=== PATIENT | female | born 1985 | race Caucasian/White ===

== ENCOUNTER → 2017-10-17 16:00 | Outpatient (CLI) | payer OTHER, SELFPAY ==
--- NOTE | 2017-10-17 | IMM_PTH ---
PATIENT: ALLEN CORREA LOC: [facility] U#:[id number] AGE/SX: 40/F ROOM: RE10/17/[address]: Dr. Nani Carvajal MD : 1985 BED: DIS: SPEC #: [id number] RECD: 10/19/17 11:32 STATUS: KATIE DANNA #: [id number] BHASKAR: 10/17/17 00:[address]: Nani Lane DEPT: IMMUNOHISTOCHEMISTRY RECD BY: Jaclyn Neville Tissues: A - Uterine cervix, NOS Procedures: p16 (initial) KI-67 (add) PHYSICIAN & INSTITUTION [facility] [id number] SPECIMEN INFORMATION: Tissue Source: A ? Cervical biopsy 12 o?clock Clinical Info: Pap HR HPV 04/2017 Specimen Number: [id number] CPT code: 87591, 15429 METHODOLOGY: Deparaffinized sections of prefer/formalin-fixed tissue or PAP/DQ stained slides are incubated with monoclonal/polyclonal antibodies/oligonucleotide probes. Localization is made via biotin free immunoperoxidase method. Appropriate controls are performed and reacted as expected. Results on target cell population are indicated in the following table: RESULTS: ANTIBODY / CLONE RESULT Block A P16 (E6H4) negative Ki-67 (30-9) positive, low These tests were developed and their performance characteristics determined by [facility]. They may not have been cleared or approved by the [place] Food and Drug Administration. The FDA has determined that such clearance or approval is not necessary. INTERPRETATION: A. Cervix at 12 o?clock, biopsy: Focal changes suspicious for HPV change. AM:alexandra 10/19/17
--- NOTE | 2017-10-17 14:30 | CER_PTH ---
PATIENT: ALLEN CORREA LOC: [facility] U#:[id number] AGE/SX: 40/F ROOM: RE10/17/[address]: Dr. Nani Carvajal MD : 1985 BED: DIS: SPEC #: [id number] RECD: 10/17/17 15:44 STATUS: KATIE DANNA #: [id number] BHASKAR: 10/17/17 14:[address]: Nani Lane DEPT: SURGICAL PATHOLOGY RECD BY: Orlin Quan Tissues: A - Uterine cervix, NOS B - Endocervical Procedures: Surgery Specimen Level IV HEADER OPERATION: Colposcopy PRE-OP DIAGNOSIS: Pap HR HPV; pap 04/2017; LMP 10/01/17 TISSUE SUBMITTED: A ? Cervical biopsy 12 o?clock, B - ECC MICROSCOPIC DIAGNOSIS A. Cervix at 12 o?clock, biopsy: Strips of benign squamous mucosa with focal changes suspicious for HPV cytopathic change. Mild chronic inflammation. B. Endocervix, curettings: Endocervix with focal squamous metaplasia. No evidence of dysplasia. AM:alexandra 10/19/17 COMMENT A. Results from immunohistochemistry ([id number]) for surrogate HPV marker (p16) will be reported separately. MICROSCOPIC DESCRIPTION Slides are reviewed. GROSS DESCRIPTION A - Received in fixative is one container labeled with the patient's name and designated cervical biopsy 12 o'clock. The specimen consists of multiple irregular fragments of light cordon soft tissue that in aggregate measure 0.6 x 0.2 x 0.2 cm. The specimen is totally submitted in one cassette. B - Received in fixative is one container labeled with the patient's name and designated ECC. The specimen consists of multiple minute fragments of cordon-brown soft tissue that in aggregate measure 1 x 0.5 x <0.1 cm. The specimen is totally submitted in one cassette. / RY:alexandra 10/18/17 TC:3 CPT: 99627 x2
== END ==
PROVIDERS: Visit Provider Obstetrics & Gynecology
DX: N72 Inflammatory disease of cervix uteri (principal); N87.9 Dysplasia of cervix uteri, unspecified
CPT/HCPCS: 88305; 88341; 88342

== ENCOUNTER → 2018-07-28 16:36 | Outpatient (CLI) | payer MEDICAID, SELFPAY ==
[2018-08-03 16:09] LABS: HPV Genotype 16, Aptima Negative (Negative)
[2018-08-04 11:55] LABS: HPV APTIMA, High Risk Positive (Negative); HPV Genotype 18,45 Aptima Negative (Negative)
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
== END ==
PROVIDERS: Visit Provider Obstetrics & Gynecology
DX: R87.810 Cervical high risk human papillomavirus (HPV) DNA test positive (principal)
CPT/HCPCS: 87624; 88175; G0145

== ENCOUNTER → 2018-11-20 09:22 | Outpatient (CLI) | payer OTHER, MEDICAID, SELFPAY | PROVIDERS: Visit Provider Obstetrics & Gynecology | DX: R87.810 Cervical high risk human papillomavirus (HPV) DNA test positive (principal) | CPT/HCPCS: 87624; 88175; G0145 ==

== ENCOUNTER 2019-02-28 17:51 | Emergency (ER) | payer MEDICAID, SELFPAY ==
[2019-02-28 17:51] VITALS: BP 119/81; PULSE 85; RESP 16; TEMP 36.6; O2SAT 97; BMI 21.4
--- NOTE | 2019-02-28 18:41 | ED.DCSUM_ITS ---
- ER Visit Summary Date of Service: 02/28/19 Chief Complaint: [Laceration right thumb] History of Present Illness: The patient is a 33 F [the emergency department after lacerating her right thumb while using a pocket knife. Patient is right- hand dominant. She is unsure of her last tetanus.] Physical Examination: [Right thumb-patient is a 2.5 cm flap-like laceration over lateral aspect of the thumb just lateral to the nail. Patient has normal range of motion of the IP joint. Patient has normal strength. She is neuro vastly intact.] Test Results: [None indicated] Emergency Department Course and Treatment: [Laceration repair-wound sterilely draped and prepped. Wound cleansed with Shur-Clens and irrigated with copious saline after she was initially anesthetized using 1% lidocaine total of 8 cc to perform digital block. Using 5-0 nylon a total of 5 single repeat sutures placed with good wound edge approximation. Patient tolerated procedure well.] Treatment Plan: [She will have suture removal in 10 days. Patient advised to return if increasing pain, redness, swelling, purulent drainage, or conditions worsen anyway.] Disposition: [Home stable condition.] Impression: [Laceration right thumb-simple repair-2.5 cm] This note was generated with [employer] dictation software. It may contain incorrect words, spelling, and punctuation that were not noted in review of the chart prior to signing ED Disposition - Plan for ED Patient: Referrals: [facility] ,Out of [Primary Care Provider] -
--- NOTE | 2019-02-28 18:42 | DCINST.ED_ITS ---
ED Disposition - Plan for ED Patient: Instructions: LACERATION, Hand Referrals: [facility] Doctor,Out of [Primary Care Provider] - 10 Day for suture removal
[2019-02-28] MEDS: Diphth,Pertuss(Acell),Tet Vac 0.5 ML Vial IM (18:49)
[2019-02-28 19:17] VITALS: BP 118/60; PULSE 78; RESP 18; O2SAT 98
== END 2019-02-28 19:17 | disposition home or self-care (01) ==
LOC: ED 18:17
PROVIDERS: Emergency Provider Emergency Medicine
DX: S61.011A Laceration without foreign body of right thumb without damage to nail, initial encounter (principal); W26.0XXA Contact with knife, initial encounter; Y93.9 Activity, unspecified; Y92.9 Unspecified place or not applicable; F41.9 Anxiety disorder, unspecified; Z79.899 Other long term (current) drug therapy
CPT/HCPCS: 12001; 90471; 90715; 99282

== ENCOUNTER → 2020-06-18 | Outpatient (CLI) | payer MEDICAID, SELFPAY ==
[2020-06-25 15:08] LABS: HPV APTIMA, High Risk Positive (Negative)
== END | disposition home or self-care (01) ==
LOC: LABSPEC 14:11
PROVIDERS: Visit Provider Obstetrics & Gynecology
DX: Z12.4 Encounter for screening for malignant neoplasm of cervix (principal)
CPT/HCPCS: 87624; 88175; G0145

== ENCOUNTER → 2020-06-19 14:40 | Outpatient (CLI) | payer MEDICAID, SELFPAY ==
[2020-06-19 18:06] LABS: Absolute Lymphocyte Count 2.47 X10^3/uL (0.83-4.51); Absolute Neutrophil Count 5.3 X10^3/uL (2.0-7.7); Basophil# 0.07 X10^3/uL; Basophil% 0.8 % (0-1); Eosinophil# 0.45 X10^3/uL; Eosinophils% 4.9 % (0-5); Hematocrit 43.2 % (37-47); Hemoglobin 13.8 g/dL (12.0-15.0); Lymphocyte # 2.47 X10^3/ul (4.0); Mean Corp Hgb Conc 31.9 g/dL (32-36); Mean Corpuscular Hgb 30.9 pg (27.0-32.0); Mean Corpuscular Volume 96.6 fL (81-99); Mean Platelet Vol. 11.3 fl (6.2-12.0); Monocyte# 0.82 X10^3/uL; NRBC Flagged by Analyzer 0 % (0-5); Neutrophil # 5.32 X10^3/uL (2.7-7.7); Neutrophil % 58.1 % (47-70); Platelet Count 276 K/mm3 (150-450); RBC Distribution Width CV 11.7 % (11.6-14.6); RBC Distribution Width SD 41.3 fl (35.1-43.9); Red Blood Count 4.47 M/mm3 (4.2-5.4); White Blood Count 9.2 K/mm3 (4.4-11.0)
[2020-06-19 18:25] LABS: AST(SGOT) 21 U/L (15-37); Alanine Aminotransfer ALT/SGPT 25 U/L (13-56); Albumin, Serum 3.7 g/dL (3.2-5.0); Alkaline Phosphatase 87 U/L (45-117); Anion Gap 5 (5-15); BUN 13 mg/dL (7-18); BUN/Creat Ratio 14.5 RATIO (10-20); Calcium,Total 8.5 mg/dL (8.5-10.1); Chloride 107 mmol/L (98-107); Creatinine, Serum 0.89 mg/dL (0.55-1.02); EST Glomerular Filtration Rate 77 mL/min (>60); Est Glom Filt Rate - Afr Amer 93 mL/min (>60); Globulin 3.7 g/dL (2.2-4.2); Glucose 66 mg/dL (74-106); Potassium 3.9 mmol/L (3.5-5.1); Protein, Total 7.4 g/dL (6.4-8.2); Sodium Level 141 mmol/L (136-145); Thyroid Stim Hormone (TSH) 0.83 uIU/mL (0.358-3.74)
[2020-06-19 19:08] LABS: Vitamin B12 469 pg/mL (211-911); Vitamin D,25 Hydroxy 23.1 ng/mL
== END ==
PROVIDERS: PCP Family Medicine; Referring Provider Family Medicine; Visit Provider Family Medicine
DX: R53.83 Other fatigue (principal)
CPT/HCPCS: 36415; 80053; 82306; 82607; 84443; 85025

== ENCOUNTER → 2020-07-10 14:10 | Outpatient (CLI) | payer MEDICAID, SELFPAY ==
--- NOTE | 2020-07-10 14:13 | RAD_ITS ---
STUDY: X-RAY - LUMBAR SPINE REASON FOR EXAM: Female, 35 years old. Back pain. Sacroiliac pain. TECHNIQUE: 2 view(s) of the lumbar spine were obtained. COMPARISON: None FINDINGS: Normal lumbar lordosis. There is no substantial scoliosis. There is a normal alignment of the vertebrae. Normal vertebral bodies and endplates. Normal disc space heights. There is no evidence of acute fracture or loss of vertebral axial height. The soft tissue structures are unremarkable. RAD/Lumbar Spine 2 or 3 Views IMPRESSION: Normal x-ray examination of the lumbar spine. Electronically Signed: Andrew Danielle DO at 21:12 EST Tel [phone], Service support ,
== END ==
PROVIDERS: PCP Family Medicine; Referring Provider Family Medicine; Visit Provider Family Medicine
DX: M53.3 Sacrococcygeal disorders, not elsewhere classified (principal)
CPT/HCPCS: 72100

== ENCOUNTER → 2020-07-29 | Outpatient (CLI) | payer MEDICAID, SELFPAY ==
--- NOTE | 2020-07-29 | ECC_PTH ---
PATIENT: ALLEN CORREA LOC: [facility] U#:[id number] AGE/SX: 35/F ROOM: RE07/29/[address]: Dr. Nani Carvajal MD : 1985 BED: DIS: 07/29/2020 SPEC #: [id number] RECD: 07/29/20 16:03 STATUS: KATIE DANNA #: [id number] BHASKAR: 07/29/20 00:[address]: Nani Lane DEPT: SURGICAL PATHOLOGY RECD BY: Saumya Merritt ENTERED: 07/30/20 08:30 SP TYPE: ECC OTHR DR: Dr. Daryl Frey MD Tissues: Endocervical Procedures: Surgery Specimen Level IV HEADER OPERATION: Colposcopy with biopsy PRE-OP DIAGNOSIS: ASCUS, positive HPV TISSUE SUBMITTED: Endocervical curettage MICROSCOPIC DIAGNOSIS Endocervix, curettings: Scant strips of superficial endocervix with squamous metaplasia. Rare strips of benign superficial ectocervix. AM:alexandra 07/31/20 COMMENT Results from immunohistochemistry ([id number]) for surrogate HPV marker (p16) will be reported separately. MICROSCOPIC DESCRIPTION Slides are reviewed. GROSS DESCRIPTION Received in fixative is one container labeled with the patient's name and designated endocervical curettings. The specimen consists of scant fragments of light cordon soft tissue measuring in aggregate 0.6 x 0.5 x <0.1 cm. The specimen is totally submitted in one cassette. / AM:alexandra 07/30/20 TC:3 CPT: 63655
--- NOTE | 2020-07-29 | IMM_PTH ---
PATIENT: ALLEN CORREA LOC: [facility] U#:[id number] AGE/SX: 35/F ROOM: RE07/29/[address]: Dr. Nani Carvajal MD : 1985 BED: DIS: 07/29/2020 SPEC #: [id number] RECD: 07/31/20 13:18 STATUS: KATIE REMisha #: [id number] [place]: 07/29/20 00:[address]: Nani Lane DEPT: IMMUNOHISTOCHEMISTRY RECD BY: Jaclyn Neville ENTERED: 07/31/20 13:18 SP TYPE: IMMUNO OTHR DR: Dr. Daryl Frey MD Tissues: Endocervical Procedures: p16 (initial) KI-67 (add) PHYSICIAN & [place] [id number] SPECIMEN INFORMATION: Tissue Source: Endocervical curettage Clinical Info: ASCUS, positive HPV Specimen Number: [id number] CPT code: 77680, 81848 METHODOLOGY: Deparaffinized sections of prefer/formalin-fixed tissue or PAP/DQ stained slides are incubated with monoclonal/polyclonal antibodies/oligonucleotide probes. Localization is made via biotin free immunoperoxidase method. Appropriate controls are performed and reacted as expected. Results on target cell population are indicated in the following table: RESULTS: ANTIBODY / CLONE RESULT P16 (E6H4) negative Ki-67 (30-9) negative These tests were developed and their performance characteristics determined by [facility]. They may not have been cleared or approved by the U.S. Food and Drug Administration. The FDA has determined that such clearance or approval is not necessary. The above immunohistochemical/dualISH markers are ordered and reviewed by the Pathologist. INTERPRETATION: Endocervical curettage: No evidence of dysplasia. AM:alexandra 08/01/20
== END | disposition home or self-care (01) ==
PROVIDERS: PCP Family Medicine; Visit Provider Obstetrics & Gynecology
DX: R87.610 Atypical squamous cells of undetermined significance on cytologic smear of cervix (ASC-US) (principal)
CPT/HCPCS: 88305; 88341; 88342

== ENCOUNTER 2020-08-21 08:30 | Outpatient (RCR) | payer MEDICAID, SELFPAY ==
--- NOTE | 2020-07-22 14:54 | HP.PTEVAL_ITS ---
Patient's Visit Information ALLEN CORREA is a 35 year old F referred to Physical Therapy by Dr. Daryl Frey MD with a diagnosis of Sacrooccygeal Disorder. Date of Evaluation: 07/22/20 Physical Therapist: Fredrick Mccormack, PT, Cert MDT, OCS - Visit Plan Frequency: 2x /Week Duration: 4 Weeks Plan: PT INTERVENTIONS MERE EX'S ,DLS ABD/BACK,POSTURAL EX'S AND MODALITIES - Subjective This 35 y/o female presents to physical therapy with lumbar pain. Patient has had LS pain for 2 months without predisposing factors or injury . 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 Aggraveting factors bending,lifting,siting,driving. Alleviating factors walking and standing. Patient was given MEDS predisone/mobic didnt help. Cuurently taking flexeral. Denies parathesia/tingling. Coughing/sneezing -. Bowel/bladder -.Symptoms affects sleeping. Did x-rays which are -. Patient pain affects ability with housework tasks and and to RTW. Patient symptoms QOL. - Pain Bilateral Back Pain Intensity (Out of 10): 6 Pain Intensity Range: 10 Comment: 10/10 without MEDS - Objective POSTURE: mild foward posture. GAIT: reciprocal pattern. SYMMTRIES: align. PALAPTION: tender L-S /SI RIGHT. NEURO: denies parathesia/tingle reflexes 2/3 ,L3-4,L4-5,L5-S1 2/3. LUMBAR ROM: flexion mod loss,extension min loss,side glides min loss. MMT: quads/hams/hip 4/5,ankle 5/5 - Special Tests L/S Slump test left side: Negative L/S Slump test right side: Negative L/S Left Straight Leg Raise: Negative L/S Right Straight Leg Raise: Negative Lumbar Standing: Flexion - Mechanical Response: No effect Lumbar Standing: Flexion - Symptoms During Testing: Increases Lumbar Standing: Flexion - Symptoms After Testing: Worse Lumbar Standing: Extension - Mechanical Response: No effect Lumbar Standing: Extension - Symptoms During Testing: Decreases Lumbar Standing: Extension - Symptoms After Testing: Better Lumbar Standing: Right Side Glides - Mechanical Response: No effect Lumbar Standing: Right Side [place] - Symptoms During Testing: No effect Lumbar Standing: Right Side [place] - Symptoms After Testing: No effect Lumbar Standing: Left Side [place] - Mechanical Response: No effect Lumbar Standing: Left Side [place] - Symptoms During Testing: No effect Lumbar Standing: Left Side [place] - Symptoms After Testing: No effect Lumbar Lying: Flexion - Mechanical Response: No effect Lumbar Lying: Flexion - Symptoms During Testing: Increases Lumbar Lying: Extension - Mechanical Response: No effect Lumbar Lying: Extension - Symptoms During Testing: Decreases Lumbar Lying: Extension - Symptoms After Testing: Better - Goals Goal 1:: I with HEP Goal Time Frame: 4-6 Weeks Goal 2:: Patient improve posture/body mechanics Goal Time Frame: 4-6 Weeks Goal 3:: Patient to decrease lumbar pain by 50% or > to improve function and RTW Goal Time Frame: 4-6 Weeks Goal 4:: Patient to improve lumbar ROM for function of recovery Goal Time Frame: 4-6 Weeks Goal 5:: Patient improve back owestry score by 5 points or> to improve QOL. Goal Time Frame: 4-6 Weeks - Rehabilitation Potential Physical Therapy Diagnosis: This patient has possible derrangement with pain worse with flexion better with extension and correction ,pain ,poor flexion thus decrease function of recovery and RTW thus benifit from skilled PT. Rehabilitation Potential: Good - Anticipated Interventions Patient/Client Instruction: Educate patient on: Condition For the Purpose of:: To decrease pain, To increase ROM, To improve muscle performance and motor function, To improve ability to perform ADL's, To increase tolerance to activity/condition/position, To improve ability of physical actions for home/community/work/leisure, To improve health of tissue, To decrease soft tissue restriction, To increase flexibility/ROM, To reduce risk of recurrence, To improve ability to perform tasks related to life management Therapeutic Exercise to Include: Strength training, Body mechanics, Postural training, Flexibilty training, Dynamic Lumbar Stabilization, Mere Exercises For the Purpose of:: To decrease pain, To increase ROM, To improve muscle performance and motor function, To increase tolerance to activity/condition/position, To improve ability of physical actions for home/community/work/leisure, To improve health of tissue, To decrease soft tissue restriction, To increase flexibility/ROM, To reduce risk of recurrence, To improve ability to perform tasks related to life management TENS: Yes IF ES: Yes Cryotherapy (ice pack, ice massage): Yes Thermo therapy (hot pack): Yes Ultrasound (thermal/non thermal): Yes For the Purpose of:: To decrease pain, To increase ROM, To improve nutrient delivery to tissue, To increase oxygenation perfusion, To improve health of tissue, To decrease soft tissue restriction Thank you for the opportunity to evaluate your patient. For Medicare and Medicare HMO plans, please review the plan of care and approve it. It will need to be FAXED BACK to us at [phone] for Medicare purposes. For Medicare only, by signing this I certify the plan of care. Please let me know if there are questions or concerns regarding this plan of care. Physician Signature: Date:
== END 2020-08-21 19:00 | disposition home or self-care (01) ==
LOC: PT 08:30
PROVIDERS: PCP Family Medicine; Referring Provider Family Medicine; Visit Provider Family Medicine
DX: M53.3 Sacrococcygeal disorders, not elsewhere classified (principal)
CPT/HCPCS: 97014; 97110; 97161; G0283

== ENCOUNTER 2020-09-01 09:00 | Day surgery (SDC) | payer MEDICAID, SELFPAY ==
[2020-09-01 09:37] VITALS: BP 111/74; PULSE 80; RESP 16; TEMP 37.1; O2SAT 99; BMI 24.9
[2020-09-01] MEDS: Lactated Ringers 1,000 ML 100 ML IV (09:43)
--- NOTE | 2020-09-01 10:10 | RAD_ITS ---
PROCEDURE: Right SI joint injection. DATE OF EXAMINATION: 09/01/2020 INDICATION: Female, 35 years old. Chronic low back pain. FLUOROSCOPY TIME (if supplied): (7.9 seconds) minutes/seconds. One image was submitted. Intraoperative imaging provided for right SI joint injection. RAD/Fluoro Guided Needle Placement IMPRESSION: Intraoperative imaging provided for right SI joint injection. Electronically Signed: Mike Farias, at 12:05 EST , Service support ,
[2020-09-01] MEDS: MethylPREDNISolone Acetate 40 MG/ML Vial IM (10:47)
[2020-09-01] MEDS: Bupivacaine 0.25% 30 ML Vial (10:47)
[2020-09-01] MEDS: Lidocaine 1% (5 ml sdv) 5 ML Vial (10:48)
[2020-09-01 10:56] VITALS: BP 111/74; BP 95/33; PULSE 74; RESP 14; TEMP 36.2; O2SAT 100
[2020-09-01 11:00] VITALS: BP 111/74; BP 93/52; PULSE 64; PULSE 75; RESP 18; O2SAT 100; O2SAT 99
--- NOTE | 2020-09-01 11:01 | OP.PCM_ITS ---
Report of Operation Date of Procedure: 09/01/20 Description of Surgical Findings:: PREOPERATIVE DIAGNOSES: 1. Sacroiliitis. 2. Sacroiliac joint dysfunction. POSTOPERATIVE DIAGNOSES: 1. Sacroiliitis. 2. Sacroiliac joint dysfunction. PROCEDURE PERFORMED: Right-sided sacroiliac joint steroid injection under fluoroscopy guidance. ANESTHESIA: MAC. BLOOD LOSS: Minimal. COMPLICATIONS: None. DESCRIPTION OF PROCEDURE: History and physical of today was reviewed. Risks and benefits of the procedure were explained. The patient understood and agreed to the procedure. Informed consent was obtained. IV inserted per routine pro tocol. The patient was taken to the operating room and placed in the prone position with a pillow positioned underneath the abdomen. The right lower back and buttock area was prepped and draped in a sterile fashion using iodine x3. Under fluoroscopy guidance on an AP view, the right SI joint was visualized. The skin and subcutaneous tissue was anesthetized with approximately 3 mL of 1% lidocaine using a 25-gauge regular needle. Under direct visualization with fluoroscopy at approximately 15-degree angle, using a 22-gauge 3-1/2-inch spinal needle, the needle was advanced via the skin. The tip of the needle was maneuvered and directed towards the inferior one-third of the posterior SI joint. Once the tip of the needle was at the vicinity of the joint, after negative aspiration for blood or CSF, a total of 1 mL of contrast was injected to confirm correct placement of the needle as well as cephalocaudal spread. Confirmation was obtained on AP as well as oblique view. After repeated negative aspiration and confirmation, a total of 4 mL of preservative-free 0.25% Marcaine with 40 mg of Depo-Medrol was injected in and around the SI joint. The needle was then removed intact. The patient experienced no sign or symptoms of intrathecal or intravascular injection. The patient experienced no paresthesia. The procedure was completed without any apparent difficulty or any complic ations. The patient appeared to tolerate it well. ASSESSMENT AND PLAN: This is a 35-year-old female with sacroiliitis, sacroiliac joint dysfunction status post right-sided sacroiliac joint steroid injection under fluoroscopic guidance, patient will continue her current medications, patient will follow approximately 2 weeks for reevaluation.
[2020-09-01 11:05] VITALS: BP 111/74; BP 94/54; PULSE 69; RESP 18; O2SAT 100
[2020-09-01 11:20] VITALS: BP 111/74; BP 90/54; PULSE 65; RESP 18; TEMP 36.3; O2SAT 100
[2020-09-01 11:47] VITALS: BP 111/74
== END 2020-09-01 12:08 | disposition home or self-care (01) ==
LOC: SDC 09:02 → AC 09:02
PROVIDERS: PCP Family Medicine; Referring Provider Anesthesiology Pain Medicine; Visit Provider Anesthesiology Pain Medicine
PROC: 3E0U3GC Introduction of Other Therapeutic Substance into Joints, Percutaneous Approach (ICD-10-PCS; CPT 27096; principal; 2020-09-01 10:05)
DX: M46.1 Sacroiliitis, not elsewhere classified (principal); M53.3 Sacrococcygeal disorders, not elsewhere classified; F32.9 Major depressive disorder, single episode, unspecified; F41.9 Anxiety disorder, unspecified; G25.81 Restless legs syndrome; Z79.899 Other long term (current) drug therapy
CPT/HCPCS: 27096; 76000; 77002; J7120

== ENCOUNTER → 2020-10-16 14:56 | Outpatient (CLI) | payer MEDICAID, SELFPAY ==
[2020-10-16 18:13] LABS: Vitamin D,25 Hydroxy 26.4 ng/mL
== END ==
PROVIDERS: PCP Family Medicine; Referring Provider Family Medicine; Visit Provider Family Medicine
DX: E55.9 Vitamin D deficiency, unspecified (principal)
CPT/HCPCS: 36415; 82306

== ENCOUNTER 2020-10-27 07:54 | Day surgery (SDC) | payer MEDICAID, SELFPAY ==
[2020-10-27] VITALS (8 sets, daily range): BP systolic 94–106; BP diastolic 55–61; PULSE 58–66; RESP 16; TEMP 36.3–36.7; O2SAT 96–100; BMI 24.8
[2020-10-27] MEDS: Lactated Ringers 1,000 ML 100 ML IV (08:26)
--- NOTE | 2020-10-27 09:04 | RAD_ITS ---
STUDY: X-RAY - SACROILIAC JOINTS REASON FOR EXAM: Female, 35 years old. LT SI JOINT INJECTION TECHNIQUE: 1 view(s) of the sacroiliac joints was obtained. 5.7 seconds of fluoroscopy. COMPARISON: None. FINDINGS: Intraoperative imaging provided for left SI joint injection. RAD/Fluoro Guided Needle Placement IMPRESSION: Intraoperative imaging provided for left SI joint injection. Electronically Signed: Mike Farias MD at 12:44 EST , Service support ,
[2020-10-27] MEDS: MethylPREDNISolone Acetate 40 MG/ML Vial IM (09:10)
[2020-10-27] MEDS: Bupivacaine 0.25% 30 ML Vial (09:10)
[2020-10-27] MEDS: Lidocaine 1% (5 ml sdv) 5 ML Vial (09:11)
--- NOTE | 2020-10-27 12:25 | OP.PCM_ITS ---
Report of Operation Date of Procedure: 10/27/20 Description of Surgical Findings:: PREOPERATIVE DIAGNOSES: 1. Sacroiliitis. 2. Sacroiliac joint dysfunction. POSTOPERATIVE DIAGNOSES: 1. Sacroiliitis. 2. Sacroiliac joint dysfunction. PROCEDURE PERFORMED: Left-sided sacroiliac joint steroid injection under fluoroscopy guidance. ANESTHESIA: MAC. BLOOD LOSS: Minimal. COMPLICATIONS: None. DESCRIPTION OF PROCEDURE: History and physical of today was reviewed. Risks and benefits of the procedure were explained. The patient understood and agreed to the procedure. Informed consent was obtained. IV inserted per routine prot ocol. The patient was taken to the operating room and placed in the prone position with a pillow positioned underneath the abdomen. The left lower back and buttock area was prepped and draped in a sterile fashion using iodine x3. Under fluoroscopy guidance on an AP view, the left SI joint was visualized. The skin and subcutaneous tissue was anesthetized with approximately 3 mL of 1% lidocaine using a 25-gauge regular needle. Under direct visualization with fluoroscopy at approximately 15-degree angle, using a 22-gauge 3-1/2-inch spinal needle, the needle was advanced via the skin. The tip of the needle was maneuvered and directed towards the inferior one-third of the posterior SI joint. Once the tip of the needle was at the vicinity of the joint, after negative aspiration for blood or CSF, a total of 1 mL of contrast was injected to confirm correct placement of the needle as well as cephalocaudal spread. Confirmation was obtained on AP as well as oblique view. After repeated n egative aspiration and confirmation, a total of 4 mL of preservative-free 0.25% Marcaine with 40 mg of Depo-Medrol was injected in and around the SI joint. The needle was then removed intact. The patient experienced no sign or symptoms of intrathecal or intravascular injection. The patient experienced no paresthesia. The procedure was completed without any apparent difficulty or any complicati ons. The patient appeared to tolerate it well. ASSESSMENT AND PLAN: This is a 35-year-old female with sacroiliitis, sacroiliac joint dysfunction status post left-sided sacroiliac joint steroid injection under fluoroscopic guidance, patient will continue her current medications, patient will follow in approximately 2 weeks for reevaluation.
== END 2020-10-27 10:20 | disposition home or self-care (01) ==
LOC: SDC 07:55 → AC 07:55
PROVIDERS: PCP Family Medicine; Referring Provider Anesthesiology Pain Medicine; Visit Provider Anesthesiology Pain Medicine
PROC: 3E0U3GC Introduction of Other Therapeutic Substance into Joints, Percutaneous Approach (ICD-10-PCS; CPT 27096; principal; 2020-10-27 09:05)
DX: M53.3 Sacrococcygeal disorders, not elsewhere classified (principal); M46.1 Sacroiliitis, not elsewhere classified; F41.9 Anxiety disorder, unspecified; F32.9 Major depressive disorder, single episode, unspecified; G25.81 Restless legs syndrome; Z79.899 Other long term (current) drug therapy
CPT/HCPCS: 27096; 76000; 77002; J7120

== ENCOUNTER → 2021-01-30 08:24 | Outpatient (CLI) | payer MEDICAID, SELFPAY ==
[2020-10-27 08:13] VITALS: BMI 24.8
[2021-01-30 10:25] LABS: AST(SGOT) 14 U/L (15-37); Alanine Aminotransfer ALT/SGPT 17 U/L (13-56); Albumin, Serum 3.7 g/dL (3.2-5.0); Alkaline Phosphatase 71 U/L (45-117); Anion Gap 6 (5-15); BUN 18 mg/dL (7-18); BUN/Creat Ratio 21.3 RATIO (10-20); CPK Total, Creatine Kinase 71 U/L (26-192); Calcium,Total 8.6 mg/dL (8.5-10.1); Chloride 109 mmol/L (98-107); Creatinine, Serum 0.85 mg/dL (0.55-1.02); EST Glomerular Filtration Rate 81 mL/min (>60); Est Glom Filt Rate - Afr Amer 99 mL/min (>60); Ferritin 90 ng/mL (8-252); Globulin 3.8 g/dL (2.2-4.2); Glucose 78 mg/dL (74-106); Magnesium 2.1 mg/dL (1.6-2.6); Potassium 4.3 mmol/L (3.5-5.1); Protein, Total 7.5 g/dL (6.4-8.2); Sodium Level 141 mmol/L (136-145); Thyroid Stim Hormone (TSH) 1.65 uIU/mL (0.358-3.74)
== END ==
PROVIDERS: PCP Family Medicine; Referring Provider Family Medicine; Visit Provider Family Medicine
DX: R25.2 Cramp and spasm (principal)
CPT/HCPCS: 36415; 80053; 82550; 82728; 83735; 84443

== ENCOUNTER 2021-10-26 08:54 | Outpatient (RCR) | payer MEDICAID, SELFPAY ==
--- NOTE | 2021-10-26 09:45 | HP.PTEVAL_ITS ---
Patient's Visit Information ALLEN CORREA is a 36 year old F referred to Physical Therapy by Dr. Daryl Frey MD with a diagnosis of Patellar Maltracking. Date of Evaluation: 10/26/21 Physical Therapist: Sarah Fritz DPT - Visit Plan Plan: Patient presents with no pain at this time- she does have some mild stren gth deficits in her LE and core strength/stabilization which could lead to poor alignment of the patella- she was given a HEP and encouraged to call if questions or more pain arises. - Subjective Patient reports that last Tuesday she woke up and could not get out of bed due to left knee/leg pain. So she waited 4 days and then finally went to the MD. The MD reported that she had patellar maltraction- put her knee in a brace and Tuesday. She woke up on Tuesday and the pain is now complete gone. She has no pain at this time. Pain when she had it was along the medial aspect of the patella. [employer] traveling- works at [employer]. Worst: 10/10 Agg: movement Eases: laying down resting it Best: 0/10. Had to pick her leg up into the car. Insidious onset. PMHx: injections in her spine, tubal ligation, 2 C-sections Meds: none - Objective Posture: good throughout. Gait: no deviation noted. Stairs: asc/desc 8 recip with no HR- good technique. HR.TR: able without pain. SLS: 30 sec without loss of balance- mild sway. Squat: good no pain. ROM: 0-130 degrees. Palpation: not tender. Strength: Core: fair plus, Hip: 4+/5, Knee: 5/5, Ankle: 5/5. Flex: HS moderate Gastroc: mild. Patellar Tracking: WFL - Special Tests L Knee Joy - Meniscus: Negative L Knee Valgus - MCL: Negative L Knee Varus - LCL: Negative L Knee Patellar Apprehension - PFS: Negative - Balance/Special Test Scores Lower Extremity Functional Score: 69 - Goals Goal 1:: Patient will be I with HEP and progression Goal Time Frame: 4-6 Weeks - Rehabilitation Potential Physical Therapy Diagnosis: Patient presents with no pain at this time- she does have some mild strength deficits in her LE and core strength/stabilization which could lead to poor alignment of the patella. Rehabilitation Potential: Excellent - Anticipated Interventions Thank you for the opportunity to evaluate your patient. For Medicare and Medicare HMO plans, please review the plan of care and approve it. It will need to be FAXED BACK to us at [phone] for Medicare purposes. For Medicare only, by signing this I certify the plan of care. Please let me know if there are questions or concerns regarding this plan of care. Physician Signature: Date:
--- NOTE | 2022-02-11 15:23 | HP.PT.NRP ---
ALLEN CORREA was seen in my office for initial evaluation on 10/26/21. The following Plan of Care was established for this patient: This patient was last seen in our office . Pertinent comments regarding their Physical therapy will appear below: Patient has not attended PT in over 30 days- appropriate to be d/c and return to MD for further evaluation as needed. At this point I will be discontinuing this patient from physical therapy. I would be happy to see this patient again in the future if found appropriate by the physician. Thank you! Sarah Fritz DPT Balance/Gait/Functional tests - Balance/Special Test Scores Lower Extremity Functional Score: 69
== END 2021-10-26 19:00 | disposition home or self-care (01) ==
LOC: PT 08:54
PROVIDERS: PCP Family Medicine; Referring Provider Family Medicine; Visit Provider Family Medicine
DX: M22.8X2 Other disorders of patella, left knee
CPT/HCPCS: 97110; 97161

== ENCOUNTER → 2021-12-24 | Outpatient (CLI) | payer MEDICAID, SELFPAY ==
[2021-12-24 17:59] LABS: AST(SGOT) 15 U/L (15-37); Alanine Aminotransfer ALT/SGPT 19 U/L (13-56); Albumin, Serum 3.8 g/dL (3.2-5.0); Alkaline Phosphatase 70 U/L (45-117); Anion Gap 5 (5-15); BUN 15 mg/dL (7-18); BUN/Creat Ratio 19.2 RATIO (10-20); Chloride 108 mmol/L (98-107); Creatinine, Serum 0.78 mg/dL (0.55-1.02); EST Glomerular Filtration Rate 89 mL/min (>60); Est Glom Filt Rate - Afr Amer 108 mL/min (>60); Globulin 3.9 g/dL (2.2-4.2); Glucose 99 mg/dL (74-106); Potassium 3.7 mmol/L (3.5-5.1); Protein, Total 7.7 g/dL (6.4-8.2); Sodium Level 140 mmol/L (136-145)
[2021-12-24 18:02] LABS: Vitamin D,25 Hydroxy 27.2 ng/mL
[2021-12-28 16:04] LABS: ANTINUCLEAR ANTIBODIES DIRECT Negative (Negative)
== END | disposition home or self-care (01) ==
LOC: MTLAB 15:34
PROVIDERS: PCP Family Medicine; Referring Provider Family Medicine; Visit Provider Family Medicine
DX: R76.8 Other specified abnormal immunological findings in serum (principal); E55.9 Vitamin D deficiency, unspecified
CPT/HCPCS: 36415; 80053; 82306; 86038

== ENCOUNTER → 2022-01-27 | Outpatient (CLI) | payer MEDICAID, SELFPAY ==
[2022-01-28 22:07] LABS: Chlamydia By Nucleic Acid AMP Negative (Negative)
[2022-01-29 08:49] LABS: Gonococcus By Nucleic Acid AMP Negative (Negative)
[2022-01-29 16:46] LABS: HPV APTIMA, High Risk Negative (Negative)
== END | disposition home or self-care (01) ==
LOC: LABSPEC 12:17
PROVIDERS: PCP Family Medicine; Visit Provider Obstetrics & Gynecology
DX: Z12.4 Encounter for screening for malignant neoplasm of cervix (principal); Z11.3 Encounter for screening for infections with a predominantly sexual mode of transmission
CPT/HCPCS: 87491; 87591; 87624; 88175; G0145

== ENCOUNTER → 2023-02-08 | Outpatient (CLI) | payer MEDICAID, SELFPAY ==
[2023-02-08 16:32] LABS: HIV - WCH Non-Reactive (Nonreactive); Syphilis Antibodies Non-reactive
[2023-02-10 05:07] LABS: HEPATITIS B SURFACE AG Negative (Negative); Hep B Surface Antibodies Reactive (.); Hepatitis B Core Ab Total Negative (Negative)
== END | disposition home or self-care (01) ==
LOC: WOBLAB 14:38
PROVIDERS: PCP Family Medicine; Visit Provider Nurse Practitioner Women's Health
DX: Z01.419 Encounter for gynecological examination (general) (routine) without abnormal findings (principal)
CPT/HCPCS: 36415; 86703; 86704; 86705; 86706; 86707; 86780; 86803; 87340; 87350

== ENCOUNTER 2023-04-06 12:37 | Outpatient (CLI) | payer MEDICAID, SELFPAY ==
--- NOTE | 2023-04-06 12:40 | VDLE_ITS ---
Reason For Study: Pain in left lower leg RIGHT LEFT CFV is compressible, spontaneous, phasic, GSV is normal. competent and demonstrates normal CFV is compressible, spontaneous, phasic, augmentation. competent, and demonstrates normal Procedure augmentation. This is a venous duplex using B-mode, color FV is compressible, spontaneous, phasic, flow and spectral Doppler. competent and demonstrates normal Exam performed in department. augmentation. A preliminary report was called and/or faxed POP V is compressible, spontaneous, phasic, to Dr. Miller. competent and demonstrates normal augmentation. T/P Trunk is compressible. PTV is compressible. LT PerV is compressible. VL/Venous Duplex US, Unilateral Interpretation Summary There is no evidence of left lower extremity deep vein thrombosis. Left great s aphenous vein appears patent and compressible segmentally. Normal flow patterns right common femoral vein Ordering Physician: Jaelyn Miller Referring Physician: aDryl Frey Performed By: Mariana Wan RVT
== END 2023-04-06 23:59 | disposition home or self-care (01) ==
PROVIDERS: PCP Family Medicine; Referring Provider Family Medicine; Visit Provider Family Medicine
DX: M79.662 Pain in left lower leg (principal); E55.9 Vitamin D deficiency, unspecified
CPT/HCPCS: 36415; 80053; 82306; 85025; 85652; 93971

== ENCOUNTER → 2023-04-06 | Outpatient (CLI) | payer MEDICAID, SELFPAY ==
[2023-04-06 15:38] LABS: Vitamin D,25 Hydroxy 29.7 ng/mL
[2023-04-06 15:46] LABS: Absolute Lymphocyte Count 2.64 X10^3/uL (0.83-4.51); Absolute Neutrophil Count 6.2 X10^3/uL (2.0-7.7); Basophil# 0.07 X10^3/uL; Basophil% 0.7 % (0-1); Eosinophil# 0.31 X10^3/uL; Eosinophils% 3.1 % (0-5); Hematocrit 45.9 % (37-47); Hemoglobin 15.4 g/dL (12.0-15.0); Lymphocyte # 2.64 X10^3/ul (0.83-4.51); Lymphocyte % 26.5 % (19-41); Mean Corp Hgb Conc 33.6 g/dL (32-36); Mean Corpuscular Volume 92.5 fL (81-99); Mean Platelet Vol. 11.3 fl (6.2-12.0); Monocyte# 0.76 X10^3/uL; Monocyte% 7.6 % (0-10); NRBC Flagged by Analyzer 0 % (0-5); Neutrophil # 6.15 X10^3/uL (2.7-7.7); Neutrophil % 61.9 % (47-70); Platelet Count 307 K/mm3 (150-450); RBC Distribution Width CV 11.8 % (11.6-14.6); RBC Distribution Width SD 39.2 fl (35.1-43.9); Red Blood Count 4.96 M/mm3 (4.2-5.4)
[2023-04-06 15:47] LABS: ALB/GLOB Ratio 0.9 RATIO (0.9-2.4); AST(SGOT) 18 U/L (15-37); Alanine Aminotransfer ALT/SGPT 21 U/L (13-56); Alkaline Phosphatase 71 U/L (45-117); Anion Gap 6 (5-15); BUN 13 mg/dL (7-18); BUN/Creat Ratio 15.3 RATIO (10-20); Calcium,Total 9.1 mg/dL (8.5-10.1); Chloride 107 mmol/L (98-107); Creatinine, Serum 0.85 mg/dL (0.55-1.02); EST Glomerular Filtration Rate 80 mL/min (>60); Est Glom Filt Rate - Afr Amer 97 mL/min (>60); Globulin 4.3 g/dL (2.2-4.2); Glucose 79 mg/dL (74-106); Protein, Total 8.3 g/dL (6.4-8.2); Sodium Level 137 mmol/L (136-145)
[2023-04-06 15:50] LABS: Erythrocyte Sedimentation Rate 18 mm/hr (0-30)
== END | disposition home or self-care (01) ==
PROVIDERS: PCP Family Medicine; Visit Provider Family Medicine
DX: M79.662 Pain in left lower leg (principal); E55.9 Vitamin D deficiency, unspecified
CPT/HCPCS: 36415; 80053; 82306; 85025; 85652

== ENCOUNTER 2023-12-17 10:11 | Emergency (ER) | payer MEDICAID, OTHER, SELFPAY ==
[2023-12-17 10:12] VITALS: BP 122/97; PULSE 73; RESP 16; TEMP 36.6; O2SAT 100; BMI 19.2
--- NOTE | 2023-12-17 10:25 | EDS_ITS ---
HPI History of Present Illness HPI Narrative: Left forearm dog bite less than an hour ago. Chief Complaint: Bite Informant: patient Occured/Mechanism Mechanism/Context: Yes injury Onset/Context/Timing Onset: Today Current Severity: Mild Maximum Severity: Mild Associated Symptoms Associated Symptoms: Negative for Parasthesia, Weakness or Loss of Funtion Narrative Narrative: 38-year-old female was going to grocery store she is on a second-level apartment that she was walking towards her car one of the neighbors dogs came up to her. It was initially fine and then she went to get away from the dog pulled away the dog bit her on her left forearm. She said there is also a minor scratch on her buttock. This occurred less than an hour ago. No other complaints. Prior similar symptoms: No Recent Illness/Hospitalization: No ROS ROS ED ROS Narrative Denies recent illness. Review of Systems ROS Unobtainable: Denies due to encephalopathy Constitutional Constitutional ED: Denies chills or fever(s) Eyes Eyes: Denies blurry vision ENT ENT ED: Denies ear pain Cardiovascular Cardiovascular: Denies chest pain Respiratory/Chest Respiratory/Chest: Denies cough or dyspnea Gastrointestinal Gastrointestinal: Denies abdominal pain Genitourinary Genitourinary ED: Denies dysuria or hematuria Musculoskeletal Musculoskeletal: Denies arthralgias Integumentary Denies abscess Neurologic Neurologic: Denies headache(s) Psychiatric Psychiatric: Denies anxiety Endocrine Endocrinology: Denies polydipsia or polyphagia Hematologic/Lymphatic Hematologic/Lymphatic: Denies easy bleeding or easy bruising Allergic/Immunologic Allergic/Immunologic ED: Denies mouth swelling, tongue swelling or urticaria PFSH PFSH Medical History Hx of carbon monoxide poisoning Physical exam, pre-employment Home Medications NK 06/21/23 [History Last Taken Unknown] Allergy/AdvReac Type Severity Reaction Status Date / Time No Known Allergies Allergy Verified 12/17/23 10:13 Surgical History History of tubal ligation Social History Smoking Status: Never smoker alcohol intake: never EXAM Physical Exam Narrative Exam Narrative: Well-appearing 38-year-old female. Vital signs stable afebrile. HEENT exam unremarkable. Lungs clear. Heart regular rhythm. Abdomen soft nontender. Moving all 4 extremities. Neurovascular intact. Forearm palmar side midportion is about 1/2 inch dog bite. Small hematoma. No need for repair. No bleeding. No signs of infection. Left hand is neurovascularly intact with normal strength. Sensation and radial pulse. Otherwise exam unremarkable. Const Vital Signs: 12/17/23 10:12 Temperature 97.8 F Temperature Source Temporal Pulse Rate 73 Respiratory Rate 16 Blood Pressure 122/97 H Blood Pressure Mean 105 Pulse Ox 100 Oxygen Delivery Method Room Air Positive well nourished and well developed; Negative for obese, cachectic, contractures or unkempt General Appearance ED: well developed and NAD; Negative for unkempt, cachectic or contractures Nutritional Appearance: Negative for cachectic or obese HEENT Reports moist mucous membranes normocephalic and atraumatic; Negative for trauma or tenderness Eyes PERRL and EOMs intact bilaterally General Eye ED: Negative for other Neck full ROM and no lymphadenopathy General: Negative for tenderness Resp normal respiratory effort and clear to auscultation bilaterally Effort and Inspection: Negative for other Auscultation: Negative for rales, rhonchi or wheezes Cardio regular rate, regular rhythm, S1 normal heart sound, S2 normal heart sound and no murmurs Jugular Venous Distention: Negative for other Rate: Negative for bradycardia or tachycardic Rhythm: Negative for abnormal rhythm GI non-tender, non-distended and no masses Inspection: Negative for abdominal distention Auscultation: normoactive bowel sounds Palpation: soft; Negative for tender or guarding Bladder / Kidney Exam: No CVA tenderness Back/Spine no CVA tenderness General Back: Negative for CVA tenderness or other Cervical Spine: Negative for cervical spine tenderness Thoracic Spine / Upper Back: Negative for thoracic spinal tenderness Lumbar Spine / Lower Back: Negative for lumbar spinal tenderness Extremity normal to inspection and full ROM Extremity Narrative: Superficial dog bite mid left forearm palmar aspect. Small hematoma. No infection. No pus, redness, cellulitis or streaks. Left arm is neurovascularly intact with full range of motion. General Extremety ED: Negative for deformity, edema or tenderness General Extremity: Negative for deformity or edema Neuro oriented x3, CN's II-XII intact bilaterally and no sensory deficits noted Sensorium / Orientation: alert, oriented to person, oriented to place and orie nted to time; Negative for orientation impaired, confused, lethargic or stuporous Motor Exam: strength 5/5 throughout Psych mental status grossly normal and thought process normal Appearance: Negative for unkempt Attitude: No agitated Mood & Affect: Negative for anxious Skin skin turgor normal General Skin Exam: Negative for other Lesions: no lesions Rashes: no rashes Image ED - Upper Extremity Diagram: 1. Left forearm, palmar aspect small superficial dog bite with small hematoma. No infection. MDM MDM MDM Narrative Medical decision making narrative: Dog bite left forearm. Dog was acting normally. Cleaned wound. She be given a prescription of Augmentin not to start it unless it starts looking worse. I explained to her most likely will need antibiotic unless it starts looking infected. History & Record Review Discussion w/independent historian: Patient Discharge Plan Triage Chief Complaint: Bite ED Provider: Vignesh Rosa Dx/Rx/DC Orders Clinical Impression: Dog bite of left forearm Instructions: ED Dog Bite Prescriptions: No Action NK Primary Care Provider: Daryl Frey Referrals: Daryl Frey MD [Primary Care Provider] - As Needed Activity Restrictions/Additional Instructions: Clean this twice daily with soap and water or peroxide and water. Apply antibiotic ointment. Most likely this will prevent any infection. I will give you prescription for the antibiotic Augmentin 1 pill twice a day for 5 days. I would not start this at this time. Dog bites usually do not get infected. Unless this gets a lot more swollen, red pus or streaks I would not start antibiotic if you see those and start antibiotic immediately. I would ice the arm and elevated to decrease pain and swelling. Motrin and Tylenol for pain. Follow-up with your doctor as needed. Disposition Disposition: Home, Self Care
[2023-12-17 10:32] VITALS: BP 127/64; PULSE 66; RESP 14; TEMP 36.4; O2SAT 99
== END 2023-12-17 10:41 | disposition home or self-care (01) ==
LOC: ED 10:39
PROVIDERS: Emergency Provider Emergency Medicine; PCP Family Medicine; Visit Provider Emergency Medicine
DX: S51.852A Open bite of left forearm, initial encounter (principal); Z98.51 Tubal ligation status; W54.0XXA Bitten by dog, initial encounter; Y93.01 Activity, walking, marching and hiking; Y92.038 Other place in apartment as the place of occurrence of the external cause
CPT/HCPCS: 99283

== ENCOUNTER → 2024-04-04 | Outpatient (CLI) | payer OTHER, MEDICAID, SELFPAY ==
[2024-04-04 10:11] LABS: Absolute Lymphocyte Count 1.67 X10^3/uL (0.83-4.51); Absolute Neutrophil Count 6.2 X10^3/uL (2.0-7.7); Basophil# 0.05 X10^3/uL; Basophil% 0.6 % (0-1); Eosinophils% 2.3 % (0-5); Hematocrit 41.4 % (37-47); Hemoglobin 13.7 g/dL (12.0-15.0); Lymphocyte # 1.67 X10^3/ul (0.83-4.51); Lymphocyte % 19.1 % (19-41); Mean Corp Hgb Conc 33.1 g/dL (32-36); Mean Corpuscular Volume 93.7 fL (81-99); Mean Platelet Vol. 10.9 fl (6.2-12.0); Monocyte# 0.62 X10^3/uL; Monocyte% 7.1 % (0-10); NRBC Flagged by Analyzer 0 % (0-5); Neutrophil # 6.16 X10^3/uL (2.7-7.7); Neutrophil % 70.6 % (47-70); Platelet Count 259 K/mm3 (150-450); RBC Distribution Width CV 11.6 % (11.6-14.6); RBC Distribution Width SD 39.8 fl (35.1-43.9); Red Blood Count 4.42 M/mm3 (4.2-5.4); White Blood Count 8.7 K/mm3 (4.4-11.0)
[2024-04-04 10:27] LABS: Vitamin D,25 Hydroxy 35.1 ng/mL
[2024-04-04 10:28] LABS: AST(SGOT) 14 U/L (15-37); Alanine Aminotransfer ALT/SGPT 15 U/L (13-56); Albumin, Serum 3.8 g/dL (3.2-5.0); Alkaline Phosphatase 55 U/L (45-117); Anion Gap 3 (5-15); BUN 18 mg/dL (7-18); BUN/Creat Ratio 19.9 RATIO (10-20); Calcium,Total 8.9 mg/dL (8.5-10.1); Chloride 107 mmol/L (98-107); EST Glomerular Filtration Rate 74 mL/min (>60); Est Glom Filt Rate - Afr Amer 90 mL/min (>60); Globulin 3.9 g/dL (2.2-4.2); Glucose 82 mg/dL (74-106); Potassium 3.8 mmol/L (3.5-5.1); Protein, Total 7.7 g/dL (6.4-8.2); Sodium Level 139 mmol/L (136-145)
== END | disposition home or self-care (01) ==
LOC: MFPLAB 08:13
PROVIDERS: PCP Family Medicine; Visit Provider Family Medicine
DX: F32.A Depression, unspecified (principal); E55.9 Vitamin D deficiency, unspecified
CPT/HCPCS: 36415; 80053; 82306; 85025

== ENCOUNTER → 2024-09-17 | Outpatient (CLI) | payer MEDICAID, SELFPAY ==
[2024-09-19 11:08] LABS: Lead, Blood Adult 16+yrs < 1.0 ug/dL (0.0-3.4)
== END | disposition home or self-care (01) ==
LOC: MTLAB 11:18
PROVIDERS: PCP Family Medicine; Referring Provider Family Medicine; Visit Provider Family Medicine
DX: Z13.88 Encounter for screening for disorder due to exposure to contaminants (principal)
CPT/HCPCS: 83655

== ENCOUNTER → 2025-02-01 | Outpatient (CLI) | payer OTHER, MEDICAID, SELFPAY ==
--- NOTE | 2025-02-01 07:56 | RAD_ITS ---
PROCEDURE: SALPINGOGRAM 02/01/2025 REASON FOR EXAM: TUBAL REVERSAL, INFERTILITY TECHNIQUE: Fluoroscopic imaging was provided during the salpingogram. The technical part of the procedure was performed by the primary care physician. COMPARISON: No relevant prior. FINDINGS: Balloon tip catheter is inflated in the body of the uterus. Uterus and uterine cornua appear normal. [id number] hydrosalpinx is seen at the fimbriated end of the left fallopian tube. The isthmus and ampullary portions of the left fallopian tube appear normal. The right fallopian tube is normal in caliber. Pelvic spillage of contrast was noted bilaterally, more rapid on the right. RAD/Salpingogram IMPRESSION: 1. Left hydrosalpinx. 2. Bilateral spillage of contrast was noted. 3. Unremarkable uterus. Reading Location: [place] [id number]
--- NOTE | 2025-02-28 12:27 | PRO.PCM_ITS ---
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
--- NOTE | 2025-02-28 12:27 | PCM.OP.PRO2 ---
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 The patient requested to proceed. A speculum was placed in the vagina to expose the cervix. The cervix was cleaned with a betadine solution. A single tooth tenaculum was placed on the anterior lip of the cervix. A uterine sound was easily passed into the uterus and the uterus sounded to 7 cm. A catheter was placed into the cervix in usual sterile fashion. Once the catheter was inserted, the single tooth tenaculum and speculum were removed. Dye was then slowly pushed through the catheter while the radiologist was present to obtain images. Once the images were obtained, the catheter was removed. All instruments were removed from the vagina. The patient tolerated the procedure well. Procedure findings: See radiology report Complications Complications: No
== END | disposition home or self-care (01) ==
PROVIDERS: PCP Family Medicine; Referring Provider Obstetrics & Gynecology; Visit Provider Obstetrics & Gynecology
DX: Z31.0 Encounter for reversal of previous sterilization (principal)
CPT/HCPCS: 58340; 74740; Q9967

== ENCOUNTER 2025-05-03 18:17 | Emergency (ER) | payer OTHER, MEDICAID, SELFPAY ==
[2025-05-03 18:18] VITALS: BP 159/103; PULSE 115; RESP 15; TEMP 36.6; O2SAT 100; BMI 20.2
--- NOTE | 2025-05-03 21:49 | EDS_ITS ---
HPI History of Present Illness Chief Complaint: Head Injury Narrative Narrative: 40-year-old female presents with injury to the back of her head that she sustained approximately 5 days ago. She states that she hit it on the fifth wheel of a camper that was mounted on the back. She thought that she had cleared the area and when she went to stand up, hit her head on the back of the tire. She denies loss of consciousness but states that she saw stars briefly and was nauseated for less than a minute. She denies any neck pain. She does not take blood thinners. She had a headache for 2 days. She states that the pain on her scalp was moving from the top of her head down towards the back. No neck pain. She denies any problems concentrating, but was concerned because the pain was traveling downward. No paresthesias. No exacerbating or alleviating factors. [facility] Medical History Physical exam, pre-employment Hx of carbon monoxide poisoning Home Medications ?Medication ?Instructions ?Recorded ?Last Taken ?Type NK 05/03/25 Unknown History Allergy/AdvReac Type Severity Reaction Status Date / Time No Known Allergies Allergy Verified 05/03/25 18:21 Family History no significant family his Surgical History History of tubal ligation Social History Smoking Status: Never smoker alcohol intake: never ROS ROS ED ROS Narrative Review of systems positive for scalp pain on the top of her head radiating more towards the occiput. Head injury 5 days ago. Nausea resolved but no vomiting. Headaches resolved after 2 days. No neck pain. No paresthesias. EXAM Physical Exam Narrative Exam Narrative: GCS 15. ABCs intact. PERRL, EOMI. No photophobia on examination. Positive tenderness to occipital scalp. No crepitance. Neck soft and supple without meningismus. No point tenderness or step-off. Cardiovascular examination regular rate and rhythm on my examination. Lungs clear to auscultation bilaterally. Abdomen is soft and nontender with positive bowel sounds, no guarding or rebound. Neurological examination is nonfocal, nonlateralizing. A wake, alert, oriented, appropriate. Patellar DTRs equal and symmetric. Const Vital Signs: 05/03/25 18:18 05/03/25 20:57 Temperature 98 F Temperature Source Oral Pulse Rate 115 H Respiratory Rate 15 Respiratory Effort Normal Non-Labored Blood Pressure 159/103 H Blood Pressure Mean 121 Pulse Ox 100 Oxygen Delivery Method Room Air Room Air MDM MDM MDM Narrative Medical decision making narrative: Differential diagnosis includes but not limited to skull fracture versus closed head injury versus mild concussion versus intracranial hemorrhage. Her injury was 5 days ago so I do not feel that she has a significant intracranial hemorrhage or skull fracture. Her symptoms have improved. Additionally she is not on blood thinners. I discussed the utility of a CT scan with her, and through shared decision making, she declines. I do feel that she probably has a mild concussion with a scalp contusion. She states it will be 7 days on Tuesday since her injury. She was told to follow-up with her primary care provider if her symptoms do not completely resolve in 10 days. She will take the [id number] medications. Return instructions to the emergency department were reviewed. Disposition is discharged home in stable condition History & Record Review Discussion w/independent historian: Patient Additional record(s) reviewed:: Prior ED visit (Noncontributory to current chief complaint) Discharge Plan Triage Chief Complaint: Head Injury ED Provider: Yair Shoemaker Dx/Rx/DC Orders Clinical Impression: Contusion of scalp, Concussion Instructions: ED Concussion, ED Scalp Contusion, ED Head Injury (Adult) Prescriptions: No Action NK Primary Care Provider: Jaelyn Miller Referrals: Jaelyn Miller MD [Primary Care Provider] - 3-5 Days if not improving Activity Restrictions/Additional Instructions: Your head injury was 5 days ago. Take [id number] medications like ibuprofen or Tylenol as needed for pain. Follow-up with your primary care provider if your symptoms have not resolved in 7 to 10 days. Return with new or worsening symptoms. Print Language: Micronesian Disposition Disposition: Home, Self Care
[2025-05-03 21:54] VITALS: BP 99/67; PULSE 80; RESP 16; TEMP 36.6; O2SAT 100
--- OUTSIDE RECORDS SUMMARY | 2025-05-03 22:00 | XMS RPT_ITS | CCD ---
Author Organization [facility] Care Team Providers Care Concrete Spreader Name Role Phone [employer] Unavailable Unavailable UNKNOWN, PCP Unavailable Unavailable NAHUM CANTOR Unavailable Unavailable Rikki, Cierra Unavailable Unavailable Rikki, Cierra Unavailable Unavailable Rikki, Cierra Unavailable Unavailable Rikki, Cierra Unavailable Unavailable Jose Enrique Wright Unavailable Unavailable Elizabeth Rubin MD Unavailable [phone] Odette Hardy Unavailable Unavailable Dr. Ethan Frey Primary Care Provider Dr. Tani Montalvo Attending Provider MD Jaelyn Miller Referring Provider PHYSICIAN, PATIENT UNSURE Primary Care Physician Unavailable Merle Ortiz MD Unavailable Unavailable Ethan Frey MD Primary Care Provider Asad Landis CGC Unavailable Unavailable MADHAVI, MISC Referring Unavailable ASAD LANDIS Attending Unavailable ETHAN FREY Primary Care Unavailable MADHAVI, MISC Referring Unavailable ASAD LANDIS Attending Unavailable ETHAN FREY Primary Care Unavailable ETHAN FREY Primary Care Unavailable EVE LOUISE Referring Unavailable EVE LOUISE Attending Unavailable Jaelyn Miller MD Primary Care Provider [phone] Jaelyn Miller MD Primary Care Provider Papo GARCIA, Dr. Ivan Attending Provid er Dr. Marzena Barros MD Referring Provid er Jaelyn Miller Primary Care Unavailable Supa Blanton Referring Unavailable Supa Blanton Attending Unavailable Katie, Chalon Primary Care Unavailable Neyhart-Dutta, Marzena Referring Unavail able Neyhart-Dutta, Marzena Attending Unavail able Katie, Chalon Attending Unavailable Ethan Frey Primary Care Unavailable GEORGIA GUNTER Attending Unavailable MISA, SHERLY Referring Unavailable KATIE, CHALON Primary Care Unavailable MISA, SHERLY Referring Unavailable KATIE, CHALON Primary Care Unavailable KATIE, CHALON Primary Care Unavailable MISA, SHERLY Referring Unavailable KATIE, CHALON Primary Care Unavailable MISA, SHERLY Attending Unavailable NEYHART DUTTA, MARZENA Referring Unavail able KATIE, CHALON Primary Care Unavailable NEYHART DUTTA, MARZENA Referring Unavail able KATIE, CHALON Primary Care Unavailable NEYHART DUTTA, MARZENA Attending Unavail able KATIE, CHALON Primary Care Unavailable Allergies Allergy Classification Reported Allergen(s) Allergy Type Date of Onset Reaction(s) Facility (1 source) Adhesive Tape Allergy to substance [facility] Medications Current Medications Medication Drug Class(es) Dates Sig (Normalized) Sig (Original) amoxicillin 875 mg / clavulanate 125 mg oral tablet (2 sources) Penicillin-class Antibacterial Start: 12-17-2023 Amoxicillin-Pot Clavulanate 875-125 mg tablet Active 1 {tbl} PO TWICE A DAY 10 December 17, 2023 12:00am Start: 12-17-2023 take 1 tablet by jg th twice daily Amoxicillin-Pot Clavulanate Active 1 TABLET PO TWICE A DAY 06 02December 17, 2023 12:00am clomiPHENE citrate 50 mg oral tablet (5 sources) Estrogen Agonist/Antagonist Start: 03-19-2025 cl omiPHENe (CLOMID) 50 mg tablet Take 1 tablet by mouth once daily. On - 5 tablet 03/19/2025 Active Start: 02-04-2025 End: 03-18-2025 clomiPHENe (CLOMID) 50 mg ta blet Take 1 tablet by mouth once daily. On CD - 5 tablet 02/04/2025 03/18/2025 Discontinued cyclobenzaprine hydrochloride 10 mg oral tablet (1 source) Muscle Relaxant Start: 05-22-2023 End: 05-27-2023 cyclobenzaprine 10 mg oral tablet Dose : 10 mg = 1 tab(s), Oral, TID, X 5 day(s), # 15 tab(s), 0 Refill(s), 05/27/23 11:37:00 AM EDT Start Date: 05/22/23 Stop Date: 05/27/23 Status: Ordered diclofenac sodium 75 mg delayed release oral tablet (1 source) Nonsteroidal Anti-inflammatory Drug Start: 04-01-2021 End: 10-22-2024 diclofenac, EC, (VOLTAREN) 75 mg EC tablet 04/01/2021 10/22/2024 Discontinued fexofenadine hydrochloride 180 mg oral tablet (7 sources) Histamine-1 Receptor Antagonist Start: 11-08-2024 take 1 tablet by mouth once daily fexofenadine (CONSUELO) 180 mg tablet Take 1 tablet by mouth once daily. 11/08/2024 Active ipratropium bromide 0.042 mg/actuat metered dose nasal spray (7 sources) Anticholinergic Start: 11-08-2024 take 1 spray(s) nasal route twice daily as needed ipratropium bromide (ATROVENT) 42 mcg (0.06 %) nasal spray Use 1 [place] in each nostril two times a day as needed. 11/08/2024 Active naproxen 250 mg oral tablet (1 source) Nonsteroidal Anti-inflammatory Drug Start: 05-22-2023 End: 05-27-2023 naproxen 250 mg oral tablet Dose : 250 mg = 1 tab(s), Oral, BID, X 5 day(s), # 10 tab(s), 0 Refill(s), 05/27/23 11:37:00 AM EDT Start Date: 05/22/23 Stop Date: 05/27/23 Status: Ordered Completed/Discontinued Medications Medication Drug Class(es) Dates Sig (Normalized) Sig (Original) baclofen 10 mg oral tablet (1 source) gamma-Aminobutyri c Acid-ergic Agonist Start: 02-17-2018 BACLOFEN 10 MG TABS Take one up to 3 times per day as needed for muscle spasm. BACLOFEN [id number] Elizabeth Rubin MD Start: 02-17-2018 BACLOFEN 10 MG TABS Take one up to 3 times per day as needed for muscle spasm. BACLOFEN [id number] Elizabeth Rubin MD busPIRone hydrochloride 5 mg oral tablet (8 sources) Start: 08-27-2020 End: 06-21-2023 take 7.5 mg by mouth three times daily Buspirone 5 MG tablet Discontinued 7.5 mg PO THREE TIMES A DAY August 27, 2020 1:00am June 21, 2023 8:17am Start: 08-27-2020 End: 06-21-2023 take 7.5 mg by mouth three times daily Buspirone Discontinued 7.5 MG PO THREE TIMES A DAY August 27, 2020 1:00am June 21, 2023 8:17am cholecalciferol 0.05 mg oral capsule (8 sources) Vitamin D Start: 08-27-2020 End: 06-21-2023 take 1 capsule by mouth once daily Cholecalciferol (Vitamin D3) 2,000 UNIT capsule Discontinued 2000 U PO DAILY August 27, 2020 1:00am June 21, 2023 8:17am escitalopram 10 mg oral tablet (9 sources) Serotonin Reuptake Inhibitor Start: 02-28-2019 End: 06-21-2023 take 1 tablet by mouth once daily Escitalopram Oxalate 10 MG tablet Discontinued 10 mg PO DAILY February 28, 2019 12:00am June 21, 2023 8:17am Start: 02-16-2018 ESCITALOPRAM O XALATE 10 MG TABS take 1 tablet once daily ESCITALOPRAM OXALATE [id number] Tiana Shipman LPN ibuprofen 200 mg oral tablet (2 sources) Nonsteroidal Anti-inflammatory Drug Start: 02-17-2018 ADVIL 200 MG TABS takes three tablets up to three times a day as needed IBUPROFEN [id number] Elizabeth Rubin MD Start: 02-10-2016 End: 10-22-2024 take 1 tablet by mouth every eight hours as needed ibuprofen (MOTRIN) 800 mg tablet Take 1 tablet by mouth every 8 hours as needed. 28 tablet 0 02/10/2016 10/22/2024 Discontinued meloxicam 15 mg oral tablet (1 source) Nonsteroidal Anti-inflammatory Drug Start: 02-17-2018 take 1 tablet by mouth once daily MELOXICAM 15 MG TABS Take 1 tablet by mouth daily MELOXICAM [id number] Elizabeth Rubin MD Start: 02-17-2018 take 1 tablet by jg th once daily MELOXICAM 15 MG TABS Take 1 tablet by mouth daily MELOXICAM [id number] Elizbaeth Rubin MD MULTIPLE VITAMINS-MINERALS (1 source) Start: 02-17-2018 MULTIVITAMIN A DULT TABS takes one daily MULTIPLE VITAMINS-MINERALS [id number] Elizabeth Rubin MD Problems Active Problems Problem Classification Problem Date Documented Date Episodic/Chronic Administrative/social admission (3 sources) Patient encounter status; Translations: [Encounter for pre-employment examination] 06-21-2023 Episodic Anxiety disorders (12 sources) Anxiety; Translations: [Anxiety disorder, unspecified] Onset: 06-21-2017 10-22-2024 Chronic Female infertility (4 sources) Female infertility of tubal origin; Translations: [Female infertility of tubal origin] Onset: 03-15-2025 02-04-2025 Chronic Menstrual disorders (2 sources) Missed period; Translations: [Irregular menstruation, unspecified] Onset: 11-09-2024 11-09-2024 Chronic Mood disorders (12 sources) Depressive disorder; Translations: [Depression] Onset: 06-21-2017 10-22-2024 Chronic Mood disorders (1 source) Mood disorders; Translations: [Depression, unspecified] Onset: 10-25-2024 Open wounds of extremities (2 sources) Dog bite of forearm; Translations: [Open bite of left forearm, initial encounter] 12-17-2023 Episodic Other acquired deformities (1 source) Leg length inequality; Translations: [Unequal limb length (acquired), unspecified site] Onset: 02-17-2018 02-17-2018 Episodic Residual codes; unclassified (1 source) Family history of breast cancer; Translations: [Family history of malignant neoplasm of breast] 05-27-2023 Episodic Residual codes; unclassified (1 source) Other specified postprocedural states; Translations: [History of reversal of tubal ligation] Onset: 03-15-2025 Episodic Spondylosis; intervertebral disc disorders; other back problems (2 sources) Other intervertebral disc disorders, lumbosacral region; Translations: [Other intervertebral disc disorders, lumbosacral region] Onset: 10-24-2017 Chronic Spondylosis; intervertebral disc disorders; other back problems (3 sources) Chronic low back pain; Translations: [Backache] Onset: 02-17-2018 02-17-2018 Episodic Viral infection (2 sources) Human papilloma virus infection; Translations: [Papillomavirus as the cause of diseases classified elsewhere] 10-30-2024 Episodic Past or Other Problems Problem Classification Problem Date Documented Date Episodic/Chronic Contraceptive and procreative management (2 sources) Encounter for reversal of previous sterilization; Translations: [Encounter for fertility testing] Onset: 01-16-2025 Episodic Other and delivery including normal (2 sources) test positive; Translations: [Encounter for test, result positive] Onset: 11-12-2024 11-12-2024 Episodic Other screening for suspected conditions (not mental disorders or infectious disease) (2 sources) Cancer cervix screening status; Translations: [Encounter for screening for malignant neoplasm of cervix] Onset: 10-10-2024 10-22-2024 Episodic Sexually transmitted infections (not HIV or hepatitis) (14 sources) Human papillomavirus deoxyribonucleic acid test positive, high risk on cervical specimen; Translations: [Cervical high risk human papillomavirus (HPV) DNA test positive] Onset: 06-21-2017 10-22-2024 Episodic Unclassified (1 source) Problem Results Test Name Value Interpretation Reference Range [facility] Progesterone [Mass/Vol] 3.1 ng/mL Normal See comment [facility] Comment on above: Order Comment: Speci men Type: BLOOD SPECIMEN Ordering Facility: [facility] Address: [address] [place] [address] Result Comment: Mens trual Cycle Progesterone Reference Ranges: Follicular: <1.0 ng/mL Ovulation: <12.1 ng/mL Luteal: 1.8 to 23.9 ng/mL. Progesterone Reference Ranges vary by gestational period: First Trimester: 11.0 to 44.3 ng/mL Second Trimester: 25.4 to 83.3 ng/mL Third Trimester: 58.7 to 214 ng/mL Post menopausal Progesterone: <0.5 ng/mL Reference: 1. Progesterone (Progesterone III) [package insert V 1.0 [place]]. [facility], [place], [place]. May 2015. Performed By: #### 2 839-9 #### [facility] CLIA [id number] [address] [place] [address] Progest SerPl-mCncon 07-18-2 025 Progesterone [Mass/Vol] 31.7 ng/mL Normal See comment [facility] Comment on above: Order Comment: Speci men Type: BLOOD SPECIMEN Ordering Facility: [facility] Address: [address] [place] [address] Result Comment: Mens trual Cycle Progesterone Reference Ranges: Follicular: <1.0 ng/mL Ovulation: <12.1 ng/mL Luteal: 1.8 to 23.9 ng/mL. Progesterone Reference Ranges vary by gestational period: First Trimester: 11.0 to 44.3 ng/mL Second Trimester: 25.4 to 83.3 ng/mL Third Trimester: 58.7 to 214 ng/mL Post menopausal Progesterone: <0.5 ng/mL Reference: 1. Progesterone (Progesterone III) [package insert V 1.0 [place]]. [facility], [place], [place]. May 2015. Performed By: #### 2 839-9 #### [facility] CLIA [id number] [address] [place] [address] OF [facility] Procedure Reporton 5 Procedure Report [facility] Medical Records Department [address] [place] [address] Procedure Report 02/28/25 1227 MR#: [id number] Acct: [id number] Name: SHWETHA STERN Rep #: [id number] : 1985 39 From: Mili Delvalle DO PCP: Dr. Jaelyn Miller MD Status:DEP CLI Location: RAD Problems Associated Problem List Diagnoses (1) History of reversal of tubal ligation: Non-invasive Procedural Procedure Information Date of Procedure: 02/01/25 Pre-Procedure Diagnosis: History of tubal reversal Post-Procedure Diagnosis: As above Procedure Performed:: HSG boat worker: No Description of procedure: Discussed r/b/a hysterosalpingogram with patient and questions answered. The patient requested to proceed. A speculum was placed in the vagina to expose the cervix. The cervix was cleaned with a betadine solution. A single tooth tenaculum was placed on the anterior lip of the cervix. A uterine sound was easily passed into the uterus and the uterus sounded to 7 cm. A catheter was placed into the cervix in usual sterile fashion. Once the catheter was inserted, the single tooth tenaculum and speculum were removed. Dye was then slowly pushed through the catheter while the radiologist was present to obtain images. Once the images were obtained, the catheter was removed. All instruments were removed from the vagina. The patient tolerated the procedure well. Procedure findings: See radiology report Complications Complications: No 02/28/25 1238 Cosigner Signature (if applicable): CC: Dr Marzena Barros MD; Dr. Jaelyn Miller MD; Dr. Mili Delvalle DO Signed [facility] 02-04-2025 [facility] Telephone (OBGYWM) -------- SUNNYSHWETHA ([id number]) 1985 F Date Time Provider Department 02/04/25 MARZENA NAPOLES OBGYWM During your visit today, we recorded the following information about you: Marzena Napoles MD 02/04/2025 8:44 AM Signed Please notify patient that I reviewed HSG that was completed at [facility]- she is fine to start trying for at this time- has h/o tubal reversal. Appears tubes are both patent. Could have some fluid in left tube or it could be post op changes as well. Ivy Soler RN 02/04/2025 2:52 PM Addendum Left message to call office. GEOVANNA Jones Jennifer, RN 02/04/2025 9:33 AM Signed Patient notified. Patient asking if she needs Clomid therapy or what the next steps are since she has been trying to conceive for the last 6 months since her tubal reversal. GEOVANNA Benton Deidre, MD 02/04/2025 10:05 AM Signed Yes- we can do that for a few cycles but based on age she can also see RADHA if she would like to- does not need to wait longer. If she dose clomid or femara she needs to take on CD 3-7, get day 21 progesterone or 7 days after ovulation was thought to occur. Let me know how she wants to proceed. Ivy Soler RN 02/04/2025 2:53 PM Addendum Left message to call office. GEOVANNA Jones Jennifer, RN 02/04/2025 10:39 AM Signed Patient notified. She wants to discuss with S.O. first. Will call the office with her decision. GEOVANNA Benton Trisha, RN 02/04/2025 2:09 PM Signed Patient called back and wants to proceed with clomid. Maggie in [place] pharmacy. Requesting [email or web address] message be sent with all directions. Please place orders and advise. Any other instructions other than to take on CD 3-7, get day 21 progesterone or 7 days after ovulation was thought to occur? GEOVANNA Reid Deidre, MD 02/04/2025 2:51 PM Signed Clomid ordered [place] every day or every other day for about one week beginning 5 days after last day of menses Ivy Soler RN 02/04/2025 2:56 PM Signed Patient notified and voiced understanding. Please file pended order for day 21 progesterone. GEOVANNA Jones Deidre, MD 02/04/2025 3:06 PM Signed ordered Allergies As of Date: 02/04/2025 (No Known Allergies) Date Reviewed: 01/16/2025 Reviewed by: Tony Owens MA - Fully Assessed Reason for Visit: Results [95] Primary Visit Diagnosis:Female infertility of tubal origin [N97.1] Other Visit Diagnosis:History of reversal of tubal ligation [Z98.890] Order(s):clomiPHENe (CLOMID) 50 mg tabletTake 1 tablet by mouth once daily. On CD 3-7Disp: 5 tabletRfl: 0 PROGESTERONE [SQPROG] Order #: [id number] FUTURE Prescriptions as of 02/04/2025 - clomiPHENe (CLOMID) 50 mg tablet Take 1 tablet by mouth once daily. On CD 3-7 - fexofenadine (CONSUELO) 180 mg tablet Take 1 tablet by mouth once daily. - ipratropium bromide (ATROVENT) 42 mcg (0.06 %) nasal spray Use 1 [place] in each nostril two times a day as needed. Problem List As Of Date 02/04/2025 Noted Resolved Anxiety [F41.9] 06/21/2017 Cervical high risk HPV (human papillomavirus) t*06/21/2017 Depression [F32.A] 06/21/2017 Prescriptions ordered this encounter Disp Refills Start End CLOMIPHENE CITRATE 50 MG TABLET 5 ta* 0 02/04/2025 Route: PO Sig: Take 1 tablet by mouth once daily. On CD 3- Encounter Status:Closed by IVY SOLER on 02/04/25 Normal [facility] Salpingogramon 02-01-2025 Salpingogram [facility] [address] [place] [address] Salpingogram MR#: [id number] Acct: [id number] Name: SHWETHA STERN Rep #: [id number] : 1985 F 39 From: Rashid Gaviria MD PCP: Dr. Jaelyn Miller MD Status: REG CLI Study: Salpingogram Date of Exam: 02/01/25 Exam# [id number] Ordering Dr: Aguila MD PROCEDURE: SALPINGOGRAM 02/01/2025 REASON FOR EXAM: TUBAL REVERSAL, INFERTILITY TECHNIQUE: Fluoroscopic imaging was provided during the salpingogram. The technical part of the procedure was performed by the primary care physician. COMPARISON: No relevant prior. FINDINGS: Balloon tip catheter is inflated in the body of the uterus. Uterus and uterine cornua appear normal. Wjeu-ak-mynkceoz hydrosalpinx is seen at the fimbriated end of the left fallopian tube. The isthmus and ampullary portions of the left fallopian tube appear normal. The right fallopian tube is normal in caliber. Pelvic spillage of contrast was noted bilaterally, more rapid on the right. RAD/Salpingogram IMPRESSION: 1. Left hydrosalpinx. 2. Bilateral spillage of contrast was noted. 3. Unremarkable uterus. Reading Location: [place] [address] CC: Dr Marzena Barros MD; Dr. Jaelyn Miller MD Bonding Supervisor: Signed [facility] CNOVon 01-16-2025 CNOV Office Visit (OBGYWM ) -------- SUNNYSHWETHA Childers ([id number]) 1985 F Date Time Provider Department 01/16/25 3:00 PM [facility]ZENA NAPOLES OBGYWM During your visit today, we recorded the following information about you: Blood pressure Weight Last Period 92/60 45.4 kg 12/31/24 Marzena Napoles MD 01/16/2025 3:20 PM Signed Subjective The patient is a 39-year-old female with a history of tubal ligation reversal presenting for evaluation of fertility. Infertility - Underwent tubal ligation reversal in June at [facility] in [place]. - Advised to wait 6 months post-reversal before seeking further evaluation. - Has been tracking ovulation and menstrual cycles as instructed. - Reports regular menstrual cycles since the reversal, approximately 25 days in length. - Prior to the reversal, had a history of irregular menstrual cycles since menarche. - Last menstrual period (LMP): Expected to start on January 27. - Denies previous hysterosalpingogram (HSG) testing. No current symptoms (positive or negative) were explicitly mentioned in the transcript; therefore, there are no entries to include in the ROS based on the provided information. Objective Blood pressure 92/60, weight 45.4 kg (100 lb), last menstrual period 12/31/2024. General: Well-appearing, no acute distress. Assessment AND Plan 1. 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 Encounter for fertility testing (Z31.41) 3. History of reversal of tubal ligation (Z98.890) - Patient underwent tubal ligation reversal in June at [facility]. - Discussed the importance of confirming tubal patency post-reversal. - Ordered Hysterosalpingography (HSG) to be performed at [facility] between cycle days 6-10. - Patient instructed to call the office on the first or second day of her menstrual cycle to schedule the HSG, tentatively planned for February 04. - Advised patient to take ibuprofen prior to the procedure to manage anticipated cramping and discomfort. - Recommended performing a home test the night before the HSG to confirm non-. - Discussed potential costs of the HSG, estimated around $1,000, and advised patient to verify insurance coverage. - If HSG confirms at least one patent tube, discussed potential for proceeding with Clomid therapy. - If both tubes are occluded, advised referral back to reproductive endocrinology and infertility specialists. Recording using [employer] software for draft documentation of the visit was discussed with the patient/authorized enrollment eligibility representative; all questions welcomed and answered. Patient/authorized enrollment eligibility representative agreed to proceed Medical Decision Making: Problems: Low: Acute, uncomplicated illness or injury Data: Unique test(s) ordered: 1 Risk: Moderate: Moderate risk from testing/treatment Medical Decision Making Level: 3 - Low Marzena Barros MD Allergies As of Date: 01/16/2025 (No Known Allergies) Date Reviewed: 01/16/2025 Reviewed by: Tony Owens MA - Fully Assessed Reason for Visit: Discussion [813] Cmt: HSG Primary Visit Diagnosis:Female infertility of tubal origin [N97.1] Other Visit Diagnoses:Encounter for fertility testing [Z31.41] History of reversal of tubal ligation [Z98.890] Prescriptions as of 01/16/2025 - fexofenadine (CONSUELO) 180 mg tablet Take 1 tablet by mouth once daily. - ipratropium bromide (ATROVENT) 42 mcg (0.06 %) nasal spray Use 1 [place] in each nostril two times a day as needed. Problem List As Of Date 01/16/2025 Noted Resolved Anxiety [F41.9] 06/21/2017 Cervical high risk HPV (human papillomavirus) t*06/21/2017 Depression [F32.A] 06/21/2017 Encounter Status:Closed by MARZENA DUTTA on 01/16/25 [facility] Tele[facility] (OBGYWM) -------- SUNNYSHWETHA ([id number]) 1985 F Date Time Provider Department 01/16/25 MARZENA NAPOLES OBGYWM During your visit today, we recorded the following information about you: Angelica Duff RN 01/16/2025 3:30 PM Signed Attempted to schedule HSG at [facility] for February 04. Their next available is February 01 and then it jumps to February 11. There is no availability the week of February 04. Do you know when her menses is tentatively due? On 02/01 they had 8, 10, 12 or 1:30 times open, but that date is probably took soon in her cycle? GEOVANNA Reid Deidre, MD 01/16/2025 4:46 PM Signed I would say February 01- she is expected to get menses January 27 but she will call to confirm so if later then it will need to be moved. It will have to be with SW- I will not be available in morning or lunch to do it. I would say SW may want it at 8 or 12pm- please ask what she prefers- probably 8 to avoid getting delayed with being back up. Mili Delvalle MD 01/17/2025 8:13 AM Signed If it is scheduled with me February 01 prefer 8am thanks Rosalina Coleman RN 01/17/2025 9:49 AM Signed [email or web address] message sent to Pt. Left message for Pt informing her that [employer] message was going to be sent re: scheduled procedure information and further instructions. Pt is scheduled at [facility] 02/01/25 with SW at 8am for HSG.Order has been faxed. Rosalina Coleman RN Allergies As of Date: 01/16/2025 (No Known Allergies) Date Reviewed: 01/16/2025 Reviewed by: Tony Owens MA - Fully Assessed Reason for Visit: HSG [Other] Prescriptions as of 01/18/2025 - fexofenadine (CONSUELO) 180 mg tablet Take 1 tablet by mouth once daily. - ipratropium bromide (ATROVENT) 42 mcg (0.06 %) nasal spray Use 1 [place] in each nostril two times a day as needed. Problem List As Of Date 01/16/2025 Noted Resolved Anxiety [F41.9] 06/21/2017 Cervical high risk HPV (human papillomavirus) t*06/21/2017 Depression [F32.A] 06/21/2017 Encounter Status:Closed by ANGELICA DUFF on 01/18/25 [facility] CNOVon 11-13-2024 CNOV Office Visit (OBGYWM ) -------- SHWETHA STERN ([id number]) 1985 F Date Time Provider Department 11/13/24 3:40 PM GEORGIA GUNTER OBGENO During your visit today, we recorded the following information about you: Blood pressure Weight Last Period 100/60 44.4 kg 11/06/24 Georgia Gunter MD 11/13/2024 4:46 PM Signed Pump Technician offered: Patient declines. Shwetha is a 39 year old Female who presents today for a colposcopy. The patient's last pap smear was Positive HPV from September 2024. Patient has a history of abnormal pap: Yes. The patient has had prior treatment: none. test: negative UNIVERSAL PROTOCOL / SAFETY CHECKLIST Procedure to be Performed: Colposcopy with possible biopsies Sign In: A Moment of CARE was completed. Appropriate PPE (Personal Protective Equipment) worn by all providers involved with the procedure. Special equipment not required. Patient/Surrogate Stated/Verified: Patient name, Date of , Relevant allergies, and The intended procedure Time Out: Relevant labs, photos, and/or imaging studies have been reviewed. Intended patient and procedure match the source document(s) (e.g. consent, HANDP, associated studies [imaging, pathology]) match the intended patient and procedure. Consent obtained and matches the intended procedure. Yes. Correct side/site is not applicable. Medications required for this procedure are verified. Fire risk assessed and is not applicable. Implants: are not applicable. Sign Out: Specimens are all correctly labeled and sent. All instruments, equipment, possible retained foreign bodies are accounted for. Yes. The post-procedure plan of care has been communicated to the patient or surrogate. PROCEDURE: EXTERNAL GENITALIA: Normal in appearance without lesions VAGINA: Normal in appearance without lesions CERVIX: Speculum placed in vagina and excellent visualization of cervix achieved. Cervix swabbed x 3 with 3% acetic acid solution. Cervix grossly normal. Squamocolumnar junction visualized. No acetowhite changes, punctations, mosaicism or atypical vasculature noted. BIOPSY: Not done. ECC: not done HEMOSTASIS: Obtained with n/a Procedure Summary: Patient tolerated procedure well and colposcopy was adequate. ASSESSMENT: HPV effect PLAN: Repeat pap in 12 months MD Fermin Finney [facility] [place] 11/13/2024 3:36 PM Signed YOUR RECOVERY It may take a few weeks for your cervix to heal. While your cervix heals, you may have: - Vaginal bleeding (less than a normal menstrual period) - Mild cramping - A brown-black vaginal discharge (similar to coffee grounds) which is a result of the paste used to help stop bleeding from the procedure Do NOT put anything in the vagina for 1 week after your colposcopy if your doctor does a biopsy of your cervix. This includes sex, tampons, and douches. If you have any discomfort, you may take an over the counter pain medication (motrin, advil, ibuprofen, tylenol, etc). If this does not relieve your discomfort, contact your doctor's office for a prescription strength pain medication. It is okay to wear a sanitary pad until the discharge and spotting stops. RISKS Although problems seldom occur with colposcopy, there can be some complications. You may feel faint during and shortly after the procedure as well as have some bleeding and vaginal discharge after the procedure. There is also a risk of infection after the procedure. These complications are rare and can be easily treated. You should contact you doctor is you have any of the following: - Heavy bleeding (more than your normal period) - Bleeding with clots - Severe abdominal pain - Fever (more than 100.4F) - Foul smelling vaginal discharge RESULTS If a biopsy was taken, we will have the results of your biopsy in 1-2 weeks. If you do not hear the results of your biopsy after 2 weeks, please contact your physicians office for the results. Depending on the biopsy results, your doctor will determine your follow up plan which may include further testing or treatments. STAYING HEALTHY After the procedure, you will need to see your doctor for follow up visits during the year. At these visits your doctor will check the health of your cervix with a pap smear. After three normal pap smears, your doctor will allow you to return to having exams once a year. If you have another abnormal pap smear, you may need closer follow up for longer or you may need additional treatment. By making a few lifestyle changes after the procedure, you can help protect the health of your cervix: - Have regular pelvic exams and pap smears as ordered by your doctor. - Stop smoking as smoking increases your risk of developing a cancer of the cervix - If you have more than one sexual partner, limit your number of partners and use condoms to reduce your (more content not included)... Normal [facility] UA DIP,URINE HCG (POC)on Beta HCG ( test) Ql (U) Negative Negative [facility] Comment on above: Location:[facility], [address] , [place], [address] Air Drier (POCT) Internal QC [place] [facility] Location:[facility], [address], [place], [address] [facility] POINT OF CARE [facility] B-HCG SerPl-aCncon 5 HCG.beta subunit Qn m[IU]/mL Normal <5.0 [facility] Comment on above: Order Comment: Speci men Type: BLOOD SPECIMEN Ordering Facility: [facility] Address: [address] [place] [address] Result Comment: Vishal fragoso Performed By: #### 2 839-9 #### [facility] CLIA [id number] [address] [place] [address] OF [facility] Nereyda 11-12-2024 VIKTORN Telephone (OBGYWM) -------- SHWETHA STERN ([id number]) 1985 F Date Time Provider Department 11/12/24 SHERLY BYNUM OBGYWM During your visit today, we recorded the following information about you: Rosalina Coleman RN 11/12/2024 9:24 AM Signed Sherly Bynum APRN.CNP 11/12/24 7:45 AM Please let the pt know that the test is positive, but barely I would like her to repeat the lab today and Tuesday to ensure the levels are increasing. Sherly Bynum APRN.Rosalina Matias RN 11/12/2024 9:24 AM Signed Left message for patient to call office. Per Pt's medical Hx- Pt had LAPAROSCOPIC TUBAL LIGATION/RING/CLIP in 2007. GEOVANNA Aguilar Trisha, RN 11/12/2024 10:08 AM Signed Patient notified and lab appt already scheduled. Angelica Duff RN Allergies As of Date: 11/12/2024 (No Known Allergies) Date Reviewed: 10/22/2024 Reviewed by: Sherly Bynum APRN.CNP - Fully Assessed Reason for Visit: Results [95] Problem List As Of Date 11/12/2024 Noted Resolved Anxiety [F41.9] 06/21/2017 Cervical high risk HPV (human papillomavirus) t*06/21/2017 Depression [F32.A] 06/21/2017 Encounter Status:Closed by ANGELICA DUFF on 11/12/24 Normal [facility] HCG QUANTITATIVEon 5 [facility] on above: Negative HCG.beta subunit Qnon 2024 Interpretation and review of laboratory results Normal [facility] B-HCG SerPl-aCncon 5 HCG.beta subunit Qn 0.7 m[IU]/mL Normal <5.0 [facility] Comment on above: Order Comment: Speci men Type: BLOOD SPECIMEN Ordering Facility: [facility] Address: [address] [place] [address] Result Comment: Vishal fragoso Performed By: #### 2 1198-7 #### [facility] CLIA [id number] [address] [place] [address] [facility] CNOVon 10-22-2024 CNOV Office Visit (OBGYWM ) -------- SHWETHA STERN ([id number]) 1985 F Date Time Provider Department 10/22/24 7:30 AM SHERLY BYNUM OBENEDINAWM During your visit today, we recorded the following information about you: Blood pressure Weight Height Last Period 44.5 kg 1.511 m 10/09/24 Sherly Bynum APRN.HOME MISSION WORKER 10/22/2024 7:53 AM Signed Shwetha is a 39 year old who presents for an annual gynecologic exam without complaints. Tubal reversal in Jun 2024- activity trying for Still get period: Yes cycle 23 days lasting 4 Bleeding amount bothersome: No Bleeding between periods: No control frequency: Never HPV vaccine: No; HPV: possibly 2 years ago - normal per patient Last pap smear: possibly 2 years ago - normal per patient History of abnormal pap: Yes, history of abnormal PAP smears Bothersome pelvic pain: No Last mammogram: never OB History Gravida2 Para2 Term2 Preterm0 AB0 Living2 SAB0 IAB0 Ectopic0 Multiple0 Live Births2 Shiftman History LMP: 10/09/2024 (Exact Date), Having periods Age at Menarche: Age at First : Age at Menopause: Shiftman History Comments: Sexual Activity: Yes; Male Contraception: None Menstrual Tracking History Flowsheet Row Office Visit from 10/22/2024 in OB/Gynecology Period Cycle (Days) 23 Period Duration (Days) 4 Menstrual Flow Moderate PAST MEDICAL HISTORY Diagnosis Date Infertility, female Migraines PAST SURGICAL HISTORY Procedure Laterality Date DELIVERY ONLY 2005 SECTION HX 2008 COLPOSCOPY CERVIX VAG LOOP ELTRD BX CERVIX LAPAROSCOPIC TUBAL LIGATION/RING/CLIP 2007 FAMILY HISTORY Problem Relation Age of Onset Breast Cancer Maternal Grandmother SOCIAL HISTORY Social History Tobacco Use Smoking status: Never Smokeless tobacco: Never Substance Use Topics Alcohol use: Not Currently Drug use: No REVIEW OF SYSTEMS Abdomen: No abdominal pain, nausea, vomiting, diarrhea, or constipation. No bloating, early satiety, indigestion, or increased flatulence. Bladder: No dysuria, gross hematuria, urinary frequency, urinary urgency, or incontinence. Breast: No breast lumps, nipple d/c, overlying skin changes, redness or skin retraction. Allergies and current medication updated:Yes SENSITIVE EXAM: The sensitive examination was discussed with the Patient or Patient's Authorized Automobile Mechanic Motor. As applicable, any other physician, advance practice provider, medical student, or other health professional student that will be observing or involved in the sensitive examination for educational or training purposes was discussed with the Patient or Authorized Automobile Mechanic Motor. The Patient or Authorized Automobile Mechanic Motor has agreed to proceed with the sensitive examination. (Sensitive examination includes inspection and/or palpation of the breasts, pelvis, prostate and anorectal regions). EXAM: BP 98/60 Ht 4' 11.5 (1.51m) Wt 98 lb (44.5kg) LMP 10/09/2024 BMI 19.47 kg/(m2). GENERAL: pleasant, female in no apparent distress HEENT: Normocephalic, atraumatic, mucus membranes moist, and no lesions DERMATOLOGY: Normal, without lesions, non-icteric, and non-hirsute BREAST: soft, non-tender, symmetric, no dominant mass, normal nipple-areolar complex, no lymphadenopathy, and no nipple discharge CHEST: Normal inspiratory effort ABDOMEN: soft, non-tender, and no masses PELVIC: external genitalia normal, normal Bartholin's glands, urethra, Schneider's glands, no vulvar lesions, no cervical lesions, good vaginal support, physiologic discharge present, normal appearing perineal body and perianal region BIMANUAL: uterus normal size, shape and consistency, no adnexal masses, and non-tender RECTOVAGINAL: deferred. NEURO: alert and oriented x3,exam grossly non-focal EXTREMITIES: normal ASSESSMENT/PLAN: 1) Health maintenance: Pap done with HPV. Mammogram starting age 40. Nutrition, exercise and routine health maintenance exams reviewed. Calcium/Vitamin D supplementation information provided. Colon cancer screening: start at age 45 2) Contraception: none. Contraceptive options reviewed and information provided. 3) STD screening: Declined STD check. 4) Follow up one year or sooner as needed Sherly Bynum APRN.HOME MISSION WORKER Allergies As of Date: 10/22/2024 (No Known Allergies) Date Reviewed: 10/22/2024 Reviewed by: Sherly Bynum APRN.HOME MISSION WORKER - Fully Assessed Reason for Visit: Well Woman [1463] Primary Visit Diagnosis:Encounter for gynecological examination (general) (routine) without abnormal findings [Z01.419] Other Visit Diagnoses:Screening for cervical cancer [Z12.4] Encounter for screening for human papillomavirus (HPV) [Z11.51] Order(s):PAP TEST [MPB9568] Order #: [id number] Problem List As Of Date 10/22/2024 Noted Resolved Anxiety [F41.9] 06/21/2017 Cervical high risk HPV (human papillomaviru (more content not included)... Normal [facility] HIGH RISK HUMAN PAPILLOMA TERI (HPV), PCR FOR DETECTION AND GENOTYPINGon 10-22-2024 HPV 16 Ag Ql (Unsp spec) Detected Abnormal Not detected [facility] Comment on above: Order Comment: Speci men Type: BLOOD SPECIMEN Ordering Facility: [facility] Address: [address] [place] [address] Performed By: #### 2 839-9 #### [facility] CLIA [id number] [address] [place] [address] [place] HPV 18 Ag Ql (Unsp spec) Not detected Normal Not detected [facility] Comment on above: Order Comment: Speci men Type: BLOOD SPECIMEN Ordering Facility: [facility] Address: [address] [place] [address] Performed By: #### 2 839-9 #### [facility] CLIA [id number] [address] [place] [address] [place] HPV 31+33+35+39+45+51+52 +56+58+59+66+68 DNA DANE+probe Ql (Cvx) Not detected Normal Not detected [facility] Comment on above: Order Comment: Speci men Type: BLOOD SPECIMEN Ordering Facility: [facility] Address: [address] [place] [address] Result Comment: High Risk HPV Other Type includes HPV types 31, 33, 35, 39, 45, 51, 52, 56, 58, 59, 66 and 68. Performed By: #### 2 839-9 #### [facility] CLIA [id number] [address] [place] [address] [place] PAP TESTon 10-22-2024 ADEQUACY Normal [facility] Comment on above: Order Comment: Speci men Type: FLUID SPECIMEN Ordering Facility: [facility] Address: [address] [place] [address] Result Comment: Sati sfactory for interpretation. No endocervical component Performed By: #### L [id number] #### [facility] CLIA [id number] [address] [place] [address] [place] CASE REPORT Normal [facility] Comment on above: Order Comment: Speci men Type: FLUID SPECIMEN Ordering Facility: [facility] Address: [address] [place] [address] Result Comment: Gyne cologic Cytology Report Case: [id number] Authorizing Provider: Sherly Bynum APRN.HOME MISSION WORKER Collected: 10/22/2024 08:34 AM Ordering Location: OB/Gynecology Received: 10/22/2024 12:12 PM First Screen: Gladkaya, Malorie, CT, ASCP Rescreen: Marisela, Roula, CT, ASCP Specimen: Pap Test, ThinPrep, Cervix Performed By: #### L [id number] #### [facility] CLIA [id number] [address] [place], [place] [address] [place] CLINICAL HISTORY, CYTOLOGY, MELT HOUSE DRAG OPERATOR Routine Exam Normal [facility] Comment on above: Order Comment: Speci men Type: FLUID SPECIMEN Ordering Facility: [facility] Address: [address] [place] [address] Performed By: #### L [id number] #### [facility] CLIA [id number] [address] [place] [address] [place] CYTOLOGY PAP OTHER INTERPRETATION Predominance of coccobacilli consistent with shift in vaginal cholo. Normal [facility] Comment on above: Order Comment: Speci men Type: FLUID SPECIMEN Ordering Facility: [facility] Address: [address] [place] [address] Performed By: #### L [id number] #### [facility] CLIA [id number] [address] [place] [address] [place] FINAL PERFORMING LAB Normal [facility] Comment on above: Order Comment: Speci men Type: FLUID SPECIMEN Ordering Facility: [facility] Address: [address] [place] [address] Result Comment: Tech nical component, meat blender screening performed at [facility], [address] [place], [place] [id number] CLIA# [id number] Diagnostic interpretation performed at [facility], [address] [place], [place] [id number] CLIA# [id number] Yoga Instructor: Beau Prieto M.D. Performed By: #### L [id number] #### [facility] CLIA [id number] [address] [place], [place] [address] [place] INTERPRETATION, CYTOLOGY, MELT HOUSE DRAG OPERATOR Normal [facility] Comment on above: Order Comment: Speci men Type: FLUID SPECIMEN Ordering Facility: [facility] Address: [address] [place] [address] Result Comment: Nega tive for intraepithelial lesion or malignancy. at 1606 EST Performed By: #### L [id number] #### [facility] CLIA [id number] [address] [place], [place] [address] [place] LMP 10/09/2024 Normal [facility] Comment on above: Order Comment: Speci men Type: FLUID SPECIMEN Ordering Facility: [facility] Address: [address] [place] [address] Performed By: #### L [id number] #### [facility] CLIA [id number] [address] [place], [place] [address] [place] PAP DISCLAIMER COMMENT The Pap Smear is a screening test for cervical cancer. False negative results occur with all screening tests, emphasizing the need for rescreening at recommended intervals, and clinical correlation. Normal [facility] Comment on above: Order Comment: Speci men Type: FLUID SPECIMEN Ordering Facility: [facility] Address: [address] [place] [address] Performed By: #### L [id number] #### [facility] CLIA [id number] [address] [place] [address] [place] PAP ELECTRICAL SYSTEMS DRAFTER COMMENT This specimen has be en analyzed by the ThinPrep Imaging System, an automated imaging and review system, which assists the laboratory in evaluating cells on ThinPrep Pap tests. Following automated imaging, selected ochoa from every slide are reviewed by a meat blender. Normal [facility] Comment on above: Order Comment: Speci men Type: FLUID SPECIMEN Ordering Facility: [facility] Address: [address] [place] [address] Performed By: #### L [id number] #### [facility] CLIA [id number] [address] [place], [place] [address] [place] Lead, Blood Adult 16+yrson 0 09-19-2024 LEAD,BLD ADULT < 1.0 Normal 0.0-3.4 [facility] Comment on above: Order Comment: Test( s) [id number]-[id number], Blood (Adult) was developed and its performance characteristics determined by [employer]. It has not been cleared or approved by the Food and Drug Administration. STAT Result Comment: Test ing performed by Inductively coupled plasma/Mass Spectrometry. Analysis by inductively coupled plasma/mass spectrometry (ICP/MS) Environmental Exposure: WHO Recommendation <5.0 Occupational Exposure: OSHA Lead Std 40.0 KELLY 30.0 Detection Limit = 1.0 Performed at: [address] [id number] Apparel Manager: Noe Bustamante PhD, Phone: [phone] Performed By: #### L 2885.6414 #### [facility] [address] [place], [place], [address] (317) CBC W/Diff, Automatedon 08-0 Absolute Lymph 1.67 X10 3/uL Normal 0.83-4.51 [facility] Comment on above: Order Comment: Order Date: 04/03/24 Order Info: 0184-1 - CBCD Performed By: #### L 506.1000, L100.0100, L500.4050 #### [facility] [address] [place], [address] Absolute Neut 6.2 X10 3/uL Normal 2.0-7.7 [facility] Comment on above: Order Comment: Order Date: 04/03/24 Order Info: 0184-1 - CBCD Performed By: #### L 506.1000, L100.0100, L500.4050 #### [facility] [address] [place], [address] Basophils/100 WBC (Bld) 0.6 % Normal 0-1 [facility] Comment on above: Order Comment: Order Date: 04/03/24 Order Info: 0184-1 - CBCD Performed By: #### L 506.1000, L100.0100, L500.4050 #### [facility] [address] [place], [address] Eosinophils/100 WBC (Bld) 2.3 % Normal 0-5 [facility] Comment on above: Order Comment: Order Date: 04/03/24 Order Info: 0184-1 - CBCD Performed By: #### L 506.1000, L100.0100, L500.4050 #### [facility] [address] [place], [address] Erythrocyte distribution width (RBC) [Ratio] 11.6 % Normal 11.6-14.6 [facility] Comment on above: Order Comment: Order Date: 04/03/24 Order Info: 0184- - CBCD Performed By: #### L 506.1000, L100.0100, L500.4050 #### [facility] [address] [place], [address] Hematocrit (Bld) [Volume fraction] 41.4 % Normal 37-47 [facility] Comment on above: Order Comment: Order Date: 04/03/24 Order Info: 0184- - CBCD Performed By: #### L 506.1000, L100.0100, L500.4050 #### [facility] [address] [place], [address] Hemoglobin (Bld) [Mass/Vol] 13.7 g/dL Normal 12.0-15.0 [facility] Comment on above: Order Comment: Order Date: 04/03/24 Order Info: 0184-1 - CBCD Performed By: #### L 506.1000, L100.0100, L500.4050 #### [facility] [address] [place], [address] IG% 0.300 Normal 0.0-0.9 [facility] Comment on above: Order Comment: Order Date: 04/03/24 Order Info: 0184-1 - CBCD Result Comment: IG% - Immature Granulocytes (promyelocytes, myelocytes and metamyelocytes) > 1% indicates that a LEFT SHIFT is Present. Performed By: #### L 506.1000, L100.0100, L500.4050 #### [facility] [address] [place], [address] Lymphocytes/100 WBC (Bld) 19.1 % Normal 19-41 [facility] Comment on above: Order Comment: Order Date: 04/03/24 Order Info: 0184-1 - CBCD Performed By: #### L 506.1000, L100.0100, L500.4050 #### [facility] [address] [place], [address] MCH (RBC) [Entitic mass] 31.0 pg Normal 27.0-32.0 [facility] Comment on above: Order Comment: Order Date: 04/03/24 Order Info: 0184-1 - CBCD Performed By: #### L 506.1000, L100.0100, L500.4050 #### [facility] [address] [place], [address] MCHC (RBC) [Mass/Vol] 33.1 g/dL Normal 32-36 [facility] Comment on above: Order Comment: Order Date: 04/03/24 Order Info: 0184-1 - CBCD Performed By: #### L 506.1000, L100.0100, L500.4050 #### [facility] [address] [place], [address] MCV (RBC) [Entitic vol] 93.7 fL Normal 81-99 [facility] Comment on above: Order Comment: Order Date: 04/03/24 Order Info: 0184-1 - CBCD Performed By: #### L 506.1000, L100.0100, L500.4050 #### [facility] [address] [place], [address] Monocytes/100 WBC (Bld) 7.1 % Normal 0-10 [facility] Comment on above: Order Comment: Order Date: 04/03/24 Order Info: 0184-1 - CBCD Performed By: #### L 506.1000, L100.0100, L500.4050 #### [facility] [address] [place], [address] Neutrophils/100 WBC (Bld) 70.6 % High 47-70 [facility] Comment on above: Order Comment: Order Date: 04/03/24 Order Info: 0184-1 - CBCD Performed By: #### L 506.1000, L100.0100, L500.4050 #### [facility] [address] [place], [address] Nucleated RBC (Bld) [#/Vol] 0 10*3/uL Normal 0-5 [facility] Comment on above: Order Comment: Order Date: 04/03/24 Order Info: 0184-1 - CBCD Performed By: #### L 506.1000, L100.0100, L500.4050 #### [facility] [address] [place], [address] Platelet mean volume (Bld) [Entitic vol] 10.9 fL Normal 6.2-12.0 [facility] Comment on above: Order Comment: Order Date: 04/03/24 Order Info: 0184-1 - CBCD Performed By: #### L 506.1000, L100.0100, L500.4050 #### [facility] [address] [place], [address] Platelets (Bld) [#/Vol] 259 10*3/uL Normal 150-450 [facility] Comment on above: Order Comment: Order Date: 04/03/24 Order Info: 0184-1 - CBCD Performed By: #### L 506.1000, L100.0100, L500.4050 #### [facility] [address] [place], [address] RBC (Bld) [#/Vol] 4.42 10*6/uL Normal 4.2-5.4 [facility] Comment on above: Order Comment: Order Date: 04/03/24 Order Info: 0184-1 - CBCD Performed By: #### L 506.1000, L100.0100, L500.4050 #### [facility] [address] [place], [address] RDW SD 39.8 fl Normal 35.1-43.9 [facility] Comment on above: Order Comment: Order Date: 04/03/24 Order Info: 0184- - CBCD Performed By: #### L 506.1000, L100.0100, L500.4050 #### [facility] [address] [place], [address] WBC (Bld) [#/Vol] 8.7 10*3/uL Normal 4.4-11.0 [facility] Comment on above: Order Comment: Order Date: 04/03/24 Order Info: [id number] - CBCD Performed By: #### L 506.1000, L100.0100, L500.4050 #### [facility] [address] [place], [address] Comprehensive Metabolic Prof vton 04-04-2024 Albumin [Mass/Vol] 3.8 g/dL Normal 3.2-5.0 [facility] Comment on above: Order Comment: Order Date: 04/03/24 Order Info: 0786-1 - CMP Performed By: #### L 506.1000, L100.0100, L500.4050 #### [facility] [address] [place], [address] Albumin/Globulin [Mass ratio] 1.0 {ratio} Normal 0.9-2.4 [facility] Comment on above: Order Comment: Order Date: 04/03/24 Order Info: 0786-1 - CMP Performed By: #### L 506.1000, L100.0100, L500.4050 #### [facility] [address] [place], [address] ALK P 55 U/L Normal 45-117 [facility] Comment on above: Order Comment: Order Date: 04/03/24 Order Info: 0786-1 - CMP Performed By: #### L 506.1000, L100.0100, L500.4050 #### [facility] [address] [place], [address] ALT [Catalytic activity/Vol] 15 U/L Normal 13-56 [facility] Comment on above: Order Comment: Order Date: 04/03/24 Order Info: 0786-1 - CMP Performed By: #### L 506.1000, L100.0100, L500.4050 #### [facility] [address] [place], [address] AST [Catalytic activity/Vol] 14 U/L Low 15-37 [facility] Comment on above: Order Comment: Order Date: 04/03/24 Order Info: 0786-1 - CMP Performed By: #### L 506.1000, L100.0100, L500.4050 #### [facility] [address] [place], [address] Bilirubin [Mass/Vol] 0.50 mg/dL Normal 0.20-1.00 [facility] Comment on above: Order Comment: Order Date: 04/03/24 Order Info: 0786-1 - CMP Result Comment: For patients on eltrombopag therapy, use of Dimension [place] TBIL is not recommended. Performed By: #### L 506.1000, L100.0100, L500.4050 #### [facility] [address] [place], [address] BUN/CRE 19.9 RATIO Normal 10-20 [facility] Comment on above: Order Comment: Order Date: 04/03/24 Order Info: 0786-1 - CMP Performed By: #### L 506.1000, L100.0100, L500.4050 #### [facility] [address] [place], [address] CA,Total 8.9 mg/dL Normal 8.5-10.1 [facility] Comment on above: Order Comment: Order Date: 04/03/24 Order Info: 0786-1 - CMP Performed By: #### L 506.1000, L100.0100, L500.4050 #### [facility] [address] [place], [address] Chloride [Moles/Vol] 107 mmol/L Normal 98-107 [facility] Comment on above: Order Comment: Order Date: 04/03/24 Order Info: 0786-1 - CMP Performed By: #### L 506.1000, L100.0100, L500.4050 #### [facility] [address] [place], [address] CO2 [Moles/Vol] 29.0 mmol/L Normal 21.0-32.0 [facility] Comment on above: Order Comment: Order Date: 04/03/24 Order Info: 0786-1 - CMP Performed By: #### L 506.1000, L100.0100, L500.4050 #### [facility] [address] [place], [address] Creatinine [Mass/Vol] 0.90 mg/dL Normal 0.55-1.02 [facility] Comment on above: Order Comment: Order Date: 04/03/24 Order Info: 0786-1 - CMP Result Comment: The validity of the calculated GFR GFRAA in patients over 70 years has not been determined. Clinical correlation is essential. Performed By: #### L 506.1000, L100.0100, L500.4050 #### [facility] [address] [place], [address] EST GFR - AA 90 mL/min Normal >60 [facility] Comment on above: Order Comment: Order Date: 04/03/24 Order Info: 0786-1 - CMP Result Comment: Afri can [place] GFR Calc Performed By: #### L 506.1000, L100.0100, L500.4050 #### [facility] [address] [place], [address] GAP 3 Low 5-15 [facility] Comment on above: Order Comment: Order Date: 04/03/24 Order Info: 0786-1 - CMP Performed By: #### L 506.1000, L100.0100, L500.4050 #### [facility] [address] [place], [address] GFR/1.73 sq M.predicted among non-blacks MDRD (S/P/Bld) [Vol rate/Area] 74 mL/min/{1.73_m2} Normal >60 [facility] Comment on above: Order Comment: Order Date: 04/03/24 Order Info: 0786-1 - CMP Result Comment: Non- GFR Calc Performed By: #### L 506.1000, L100.0100, L500.4050 #### [facility] [address] [place], [address] Globulin (S) [Mass/Vol] 3.9 g/dL Normal 2.2-4.2 [facility] Comment on above: Order Comment: Order Date: 04/03/24 Order Info: 0786-1 - CMP Performed By: #### L 506.1000, L100.0100, L500.4050 #### [facility] [address] [place], [address] Glucose [Mass/Vol] 82 mg/dL Normal 74-106 [facility] Comment on above: Order Comment: Order Date: 04/03/24 Order Info: 0786-1 - CMP Performed By: #### L 506.1000, L100.0100, L500.4050 #### [facility] [address] [place], [address] Potassium [Moles/Vol] 3.8 mmol/L Normal 3.5-5.1 [facility] Comment on above: Order Comment: Order Date: 04/03/24 Order Info: 0786-1 - CMP Performed By: #### L 506.1000, L100.0100, L500.4050 #### [facility] [address] [place], [address] Sodium [Moles/Vol] 139 mmol/L Normal 136-145 [facility] Comment on above: Order Comment: Order Date: 04/03/24 Order Info: 0786-1 - CMP Performed By: #### L 506.1000, L100.0100, L500.4050 #### [facility] [address] [place], [address] T PROT 7.7 g/dL Normal 6.4-8.2 [facility] Comment on above: Order Comment: Order Date: 04/03/24 Order Info: 0786-1 - CMP Performed By: #### L 506.1000, L100.0100, L500.4050 #### [facility] [address] [place], [address] Urea nitrogen [Mass/Vol] 18 mg/dL Normal 7-18 [facility] Comment on above: Order Comment: Order Date: 04/03/24 Order Info: 0786-1 - CMP Performed By: #### L 506.1000, L100.0100, L500.4050 #### [facility] [address] [place], [address] Vitamin D,25 Hydroxyon 04-04 Vitamin D 25-OH 35.1 ng/mL Normal [facility] Comment on above: Order Comment: Order Date: 04/03/24 Order Info: [id number] - VITD25 Result Comment: Maricel min D 25(OH) Status Range Deficiency <20 ng/mL (50nmol/L) Insufficiency 20 - 30 ng/mL (50 - 75 nmol/L) Sufficiency 30 - 100 ng/mL (75 - 250 nmol/L) Toxicity >100 ng/mL (>250 nmol/L) Performed By: #### L 506.1000, L100.0100, L500.4050 #### [facility] [address] [place], [address] Absolute lymphocyte countOrd ered By: Jaelyn Miller on 04-06-2023 Lymphocytes Auto (Unsp spec) [#/Vol] 2.64 10*3/uL 0.83-4.51 [facility] Basophil percentageOrdered B y: Jaelyn Miller on 04-06-2023 Basophils/100 WBC (Bld) 0.7 % 0-1 [facility] Bilirubin [Mass/Vol] 0.30 mg/dL 0.20-1.00 [facility] Comment on above: For patients on eltr ombopag therapy, use of Dimension [place] TBIL is not recommended. Chloride [Moles/Vol] 107 mmol/L 98-107 [facility] Eosinophils/100 WBC (Bld) 3.1 % 0-5 [facility] Glucose [Mass/Vol] 79 mg/dL 74-106 [facility] Neutrophils (Bld) [#/Vol] 6.2 10*3/uL 2.0-7.7 [facility] Neutrophils/100 WBC (Bld) 61.9 % 47-70 [facility] Potassium [Moles/Vol] 4.0 mmol/L 3.5-5.1 [facility] Protein [Mass/Vol] 8.3 g/dL 6.4-8.2 [facility] Sodium [Moles/Vol] 137 mmol/L 136-145 [facility] WBC (Bld) [#/Vol] 10.0 10*3/uL 4.4-11.0 [facility] Blood erythrocytes count (nu mber/volume)Ordered By: Jaelyn Miller on 04-06-2023 RBC (Bld) [#/Vol] 4.96 10*6/uL 4.2-5.4 [facility] Blood hemoglobin measurement (mass/volume)Ordered By: Jaelyn Miller on 04-06-2023 Hemoglobin (Bld) [Mass/Vol] 15.4 g/dL 12.0-15.0 [facility] Blood lymphocytes/100 leukoc ytesOrdered By: Jaelyn Miller on 04-06-2023 Lymphocytes/100 WBC (Bld) 26.5 % 19-41 [facility] Blood monocytes/100 leukocyt esOrdered By: Jaelyn Miller on 04-06-2023 Monocytes/100 WBC (Bld) 7.6 % 0-10 [facility] Blood platelet mean volumeOr dered By: Jaelyn Miller on 04-06-2023 Platelet mean volume (Bld) [Entitic vol] 11.3 fL 6.2-12.0 [facility] Determination of erythrocyte mean corpuscular volume (MCV)Ordered By: Jaelyn Miller on 04-06-2023 MCV (RBC) [Entitic vol] 92.5 fL 81-99 [facility] Erythrocyte sedimentation ra teOrdered By: Jaelyn Miller on 04-06-2023 ESR (Bld) [Velocity] 18 mm/h 0-30 [facility] Hematocrit Auto (Bld) [Volum e fraction]Ordered By: Jaelyn Miller on 04-06-2023 Hematocrit (Bld) [Volume fraction] 45.9 % 37-47 [facility] - Chemistry and C hemistry - challengeOrdered By: Jaelyn Miller on 04-06-2023 ALP [Catalytic activity/Vol] 71 U/L 45-117 [facility] ALT [Catalytic activity/Vol] 21 U/L 13-56 [facility] CO2 [Moles/Vol] 24.0 mmol/L 21.0-32.0 [facility] Globulin (S) [Mass/Vol] 4.3 g/dL 2.2-4.2 [facility] Urea nitrogen/Creatinine [Mass ratio] 15.3 mg/mg 10-20 [facility] - Hematology and Cell countsOrdered By: Jaelyn Miller on 04-06-2023 Erythrocyte distribution width (RBC) [Entitic vol] 39.2 fL 35.1-43.9 [facility] Erythrocyte distribution width (RBC) [Ratio] 11.8 % 11.6-14.6 [facility] Immature granulocytes/100 WBC (Bld) 0.200 % 0.0-0.9 [facility] Comment on above: IG% - Immature Granu locytes (promyelocytes, myelocytes and metamyelocytes) > 1% indicates that a LEFT SHIFT is Present. MCH (RBC) [Entitic mass] 31.0 pg 27.0-32.0 [facility] Nucleated RBC/100 WBC (Bld) [Ratio] 0 % 0-5 [facility] MCHC Auto (RBC) [Mass/Vol]Or dered By: Jaelyn Miller on 04-06-2023 MCHC (RBC) [Mass/Vol] 33.6 g/dL 32-36 [facility] No Panel InformationOrdered By: Jaelyn Miller on 04-06-2023 Estimated GFR (MDRD) Amer 97 mL/min >60 [facility] Comment on above: GFR Calc Estimated GFR (MDRD) Non-Af Amer 80 mL/min >60 [facility] Comment on above: Non- GFR Calc Vitamin D 25-Hydroxy 29.7 ng/mL [facility] Comment on above: Vitamin D 25(OH) Sta tus Range Deficiency <20 ng/mL (50nmol/L) Insufficiency 20 - 30 ng/mL (50 - 75 nmol/L) Sufficiency 30 - 100 ng/mL (75 - 250 nmol/L) Toxicity >100 ng/mL (>250 nmol/L) Platelets bldOrdered By: Bree Miller on 04-06-2023 Platelets (Bld) [#/Vol] 307 10*3/uL 150-450 [facility] Serum or plasma albumin govind urement (mass/volume)Ordered By: Jaelyn Miller on 04-06-2023 Albumin [Mass/Vol] 4.0 g/dL 3.2-5.0 [facility] Serum or plasma albumin/glob ulin mass ratioOrdered By: Jaelyn Miller on 04-06-2023 Albumin/Globulin [Mass ratio] 0.9 {ratio} 0.9-2.4 [facility] Serum or plasma calcium govind urement (mass/volume)Ordered By: Jaelyn Miller on 04-06-2023 Calcium [Mass/Vol] 9.1 mg/dL 8.5-10.1 [facility] Serum or plasma creatinine m easurement (mass/volume)Ordered By: Jaelyn Miller on 04-06-2023 Creatinine [Mass/Vol] 0.85 mg/dL 0.55-1.02 [facility] Comment on above: The validity of the calculated GFR & GFRAA in patients over 70 years has not been determined. Clinical correlation is essential. Serum or plasma urea nitroge n measurement (mass/volume)Ordered By: Jaelyn Miller on 04-06-2023 Urea nitrogen [Mass/Vol] 13 mg/dL 7-18 [facility] Thin prep Papanicolaou smear with manual screeningOrdered By: Jaelyn Miller on 04-06-2023 Thin prep Papanicolaou smear with manual screening 18 U/L 15-37 [facility] Thin prep Papanicolaou smear with manual screening 6 5-15 [facility] HIV 1 and HIV-2 antibody ass ay with HIV-1 p24 antigen detectionOrdered By: Adriana Mason on 02-08-2023 HIV 1+2 Ab+HIV1 p24 Ag IA Ql Non-Reactive Nonreactive [facility] No Panel InformationOrdered By: Adriana Mason on 02-08-2023 Hepatitis B Surface Antibody Reactive . [facility] Comment on above: Non Reactive: Incons istent with immunity, less than 10 mIU/mL Reactive: Consistent with immunity, greater than 9.9 mIU/mL Hepatitis C Antibody Comment Comment . [facility] Comment on above: Not infected with HC V unless early or acute infection issuspected (which may be delayed in an immunocompromisedindividual), or other evidence exists to indicate HCVinfection.Performed at: [facility] [address] [id number] Director: Noe Bustamante PhD, Phone: [phone] Serum Treponema species anti body detectionOrdered By: Adriana Mason on 02-08-2023 Treponema sp Ab Ql (S) Non-Reactive [facility] Serum hepatitis B virus core antibody detectionOrdered By: Adriana Mason on 02-08-2023 HBV core Ab Ql (S) Negative Negative [facility] Serum or plasma hepatitis B virus surface antigen detection by immunoassayOrdered By: Adriana Mason on 02-08-2023 HBV surface Ag IA Ql Negative Negative [facility] Cervical or vagninal specime n microscopic examination by cytology stain (reported ason 01-27-2022 Cytology report Cyto stain Doc (Cvx/Vag) Comment . [facility] Work Phone: Comment on above: The Pap smear is a s creening test designed to aid in thedetection of premalignant and malignant conditions of theuterine cervix. It is not a diagnostic procedure andshould not be used as the sole means of detecting cervicalcancer. Both false-positive and false-negative reports dooccur. Chlamydia trachomatis rRNA d etection by probe and target amplification methodon 01-27-2022 C. trachomatis rRNA DANE+probe Ql (Unsp spec) Negative Negative [facility] Work Phone: Detection in cervical specim en of any of human papilloma virus (HPV) 16, 18, 31, 33,on 01-27-2022 HPV 16+18+31+33+35+39+45 +51+52+56+58+59+66+6 8 DNA Probe+sig amp Ql (Cvx) Negative Negative [facility] Work Phone: Comment on above: This nucleic acid am plification test detects fourteen high- risk HPV types (16,18,31,33,35,39,45,51,52,56,58,59,66,68)without differentiation.Performed at: - [address] [id number] Director: Natacha Almazan MD, Phone: [phone] at: = - [facility] [id number] Director: Natacha Almazan MD, Phone: [phone] Laboratory - Cytologyon Lathe Turner Cyto stain Nom (Cvx/Vag) [ID] Comment . [facility] Work Phone: Comment on above: Magdy Prater totechnologist Laboratory - Microbiology an d Antimicrobial susceptibilityon 01-27-2022 N. gonorrhoeae DNA DANE+probe Ql (Unsp spec) Negative Negative [facility] Work Phone: Comment on above: Performed at: =G - L [address] [id number] Director: Natacha Almazan MD, Phone: [phone] Laboratory - Miscellaneous t estson 01-27-2022 Service comment (Unsp spec) [Interp] Comment . [facility] Work Phone: Comment on above: This liquid based Th inPrep(R) pap test was screened withthe use of an image guided system. Service comment (Unsp spec) [Interp] . . [facility] Work Phone: [phone] No Panel Informationon 01-27 Pathology report final diagnosis Narrative Comment . [facility] Work Phone: Comment on above: NEGATIVE FOR INTRAEP ITHELIAL LESION OR MALIGNANCY. Basophil percentageon 2021 Bilirubin [Mass/Vol] 0.40 mg/dL 0.20-1.00 [facility] Work Phone: Comment on above: For patients on eltr ombopag therapy, use of Dimension [place] TBIL is not recommended. Chloride [Moles/Vol] 108 mmol/L 98-107 [facility] Work Phone: Glucose [Mass/Vol] 99 mg/dL 74-106 [facility] Work Phone: Potassium [Moles/Vol] 3.7 mmol/L 3.5-5.1 [facility] Work Phone: [phone] Protein [Mass/Vol] 7.7 g/dL 6.4-8.2 [facility] Work Phone: Sodium [Moles/Vol] 140 mmol/L 136-145 [facility] Work Phone: Laboratory - Chemistry and C hemistry - challengeon 12-24-2021 ALP [Catalytic activity/Vol] 70 U/L 45-117 [facility] Work Phone: ALT [Catalytic activity/Vol] 19 U/L 13-56 [facility] Work Phone: CO2 [Moles/Vol] 27.0 mmol/L 21.0-32.0 [facility] Work Phone: Globulin (S) [Mass/Vol] 3.9 g/dL 2.2-4.2 [facility] Work Phone: [phone] Urea nitrogen/Creatinine [Mass ratio] 19.2 mg/mg 10-20 [facility] Work Phone: [phone] No Panel Informationon 12-24 Anti-Nuclear Antibody Screen Negative Negative [facility] Work Phone: Comment on above: Performed at: [address] [id number] Director: Noe Bustamante PhD, Phone: [phone] Estimated GFR (MDRD) Amer 108 mL/min >60 [facility] Work Phone: Comment on above: GFR Calc Estimated GFR (MDRD) Non-Af Amer 89 mL/min >60 [facility] Work Phone: Comment on above: Non- GFR Calc Vitamin D 25-Hydroxy 27.2 ng/mL [facility] Work Phone: Comment on above: Vitamin D 25(OH) Sta tus Range Deficiency <20 ng/mL (50nmol/L) Insufficiency 20 - 30 ng/mL (50 - 75 nmol/L) Sufficiency 30 - 100 ng/mL (75 - 250 nmol/L) Toxicity >100 ng/mL (>250 nmol/L) Serum or plasma albumin govind urement (mass/volume)on 12-24-2021 Albumin [Mass/Vol] 3.8 g/dL 3.2-5.0 [facility] Work Phone: [phone] Serum or plasma albumin/glob ulin mass ratioon 12-24-2021 Albumin/Globulin [Mass ratio] 1.0 {ratio} 0.9-2.4 [facility] Work Phone: [phone] Serum or plasma calcium govind urement (mass/volume)on 12-24-2021 Calcium [Mass/Vol] 9.0 mg/dL 8.5-10.1 [facility] Work Phone: [phone] Serum or plasma creatinine m easurement (mass/volume)on 12-24-2021 Creatinine [Mass/Vol] 0.78 mg/dL 0.55-1.02 [facility] Work Phone: Comment on above: The validity of the calculated GFR & GFRAA in patients over 70 years has not been determined. Clinical correlation is essential. Serum or plasma urea nitroge n measurement (mass/volume)on 12-24-2021 Urea nitrogen [Mass/Vol] 15 mg/dL 7-18 [facility] Work Phone: Thin prep Papanicolaou smear with manual screeningon 12-24-2021 Thin prep Papanicolaou smear with manual screening 15 U/L 15-37 [facility] Work Phone: Thin prep Papanicolaou smear with manual screening 5 5-15 [facility] Work Phone: ABO AND RH ONLYon 04-22-2021 ABO A Normal [facility] Comment on above: Order Comment: Speci men Type: BLOOD SPECIMEN Performed By: #### A LARS #### [facility] CLIA [id number] [address] [place] Rh Nom (Bld) Positive Normal [facility] Comment on above: Order Comment: Speci men Type: BLOOD SPECIMEN Performed By: #### A LARS #### [facility] CLIA [id number] [address] [place] ANTI MULLERIAN HORMONEon Mullerian inhibiting substance [Mass/Vol] 5.38 ng/mL Normal 0.15-7.49 [facility] Comment on above: Order Comment: Speci men Type: BLOOD SPECIMEN Performed By: #### M CARINE #### [facility] CLIA [id number] [address] [id number] [address] [place] CBC panel Auto (Bld)on 04-22 Erythrocyte distribution width (RBC) [Ratio] 11.6 % Normal 11.5-15.0 [facility] Comment on above: Order Comment: Speci men Type: BLOOD SPECIMEN Performed By: #### 5 8410-2 #### [facility] CLIA [id number] [address] Hematocrit (Bld) [Volume fraction] 45.2 % Normal 36.0-46.0 [facility] Comment on above: Order Comment: Speci men Type: BLOOD SPECIMEN Performed By: #### 5 8410-2 #### [facility] CLIA [id number] [address] Hemoglobin (Bld) [Mass/Vol] 14.9 g/dL Normal 11.5-15.5 [facility] Comment on above: Order Comment: Speci men Type: BLOOD SPECIMEN Performed By: #### 5 8410-2 #### [facility] CLIA [id number] [address] MCH (RBC) [Entitic mass] 31.6 pg Normal 26.0-34.0 [facility] Comment on above: Order Comment: Speci men Type: BLOOD SPECIMEN Performed By: #### 5 8410-2 #### [facility] CLIA [id number] [address] MCHC (RBC) [Mass/Vol] 33.0 g/dL Normal 30.5-36.0 [facility] Comment on above: Order Comment: Speci men Type: BLOOD SPECIMEN Performed By: #### 5 8410-2 #### [facility] CLIA [id number] [address] MCV (RBC) [Entitic vol] 96.0 fL Normal 80.0-100.0 [facility] Comment on above: Order Comment: Speci men Type: BLOOD SPECIMEN Performed By: #### 5 8410-2 #### [facility] CLIA [id number] [address] Nucleated RBC (Bld) [#/Vol] 10*3/uL Normal <0.01 [facility] Comment on above: Order Comment: Speci men Type: BLOOD SPECIMEN Performed By: #### 5 8410-2 #### [facility] CLIA [id number] [address] Platelet mean volume (Bld) [Entitic vol] 11.7 fL Normal 9.0-12.7 [facility] Comment on above: Order Comment: Speci men Type: BLOOD SPECIMEN Performed By: #### 5 8410-2 #### [facility] CLIA [id number] [address] Platelets (Bld) [#/Vol] 276 10*3/uL Normal 150-400 [facility] Comment on above: Order Comment: Speci men Type: BLOOD SPECIMEN Performed By: #### 5 8410-2 #### [facility] CLIA [id number] [address] RBC (Bld) [#/Vol] 4.71 10*6/uL Normal 3.90-5.20 [facility] Comment on above: Order Comment: Speci men Type: BLOOD SPECIMEN Performed By: #### 5 8410-2 #### [facility] CLIA [id number] [address] WBC (Bld) [#/Vol] 11.91 10*3/uL High 3.70-11.00 [facility] Comment on above: Order Comment: Speci men Type: BLOOD SPECIMEN Performed By: #### 5 8410-2 #### [facility] CLIA [id number] [address] CNOVon 04-22-2021 CNOV Office Visit ([facility] ) -------- SHWETHA STERN ([id number]) 1985 F Date Time Provider Department 04/22/21 11:15 AM POLO COLBERT [facility] During your visit today, we recorded the following information about you: Pulse Blood pressure Weight Last Period 72/minute 109/70 51.4 kg 04/22/21 Polo Colbert MD 05/18/2021 10:59 PM Signed Assessment: Plan: Polo Colbert MD April 22, 2021 11:16 AM Polo Colbert MD 05/18/2021 10:59 PM Signed Date of Consult: 04/22/2021 Consultation Requested By: Self-refered Shwetha Stern is a 36 year old female presenting with the following history: HISTORY OF PRESENT ILLNESS: Shwetha Stern is a 36 year old female AMA Menstrual cycle irregularity: -20/01 PMHx: Migraine. Anxiety PSHx: CD. Bilateral tubal ligation at CD #2 Meds: MVI Desire for future fertility 36 year old male partner without proven fertility PMHx: Hypothyroidism. GERD PSHx: Denies Meds: Levothyroxine. SA: At home test: Normal Fertility Evaluations and Treatments: Eval Checklist Results Date Comments HSG Not done Hysteroscopy Not done Laparoscopy Not done OPK (Ovulation Predictor Kit) Not done Ovarian [place] Not done Saline Ultrasound Not done Semen Analysis Not done Ultrasound Not done Other (See comments) Not done MENSTRUAL HISTORY: Menarche Age: 12 Length of Cycle: Regular Days: Menstrual Flow: Moderate,Light Menstrual Symptoms: Breast Tenderness,Bloating Patient's last menstrual period was 04/22/2021. PAST MEDICAL HISTORY Diagnosis Date - Migraines PAST SURGICAL HISTORY Procedure Laterality Date - , CLASSIC, IN-HOSP CARE - LAPAROSCOPIC TUBAL LIGATION/RING/CLIP 13 years ago No family history on file. 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 No current facility-administered medications on file prior to visit. ALLERGIES: Patient has no known allergies. Blood Type: NA ASSESSMENT: 36 year old female AMA Menstrual cycle irregularity: -20/01 PMHx: Migraine. Anxiety PSHx: CD. Bilateral tubal ligation at CD #2 Meds: MVI Desire for future fertility 36 year old male partner without proven fertility PMHx: Hypothyroidism. GERD PSHx: Denies Meds: Levothyroxine. SA: At home test: Normal PLAN: Initial evaluation: CD 3, Fasting hormone values HSG Pelvic US SA Follow-up visit: Office visit or virtual visit to review and discuss initial work-up results and determine future treatment plan I spent a total of 47 minutes on the date of the service which included preparing to see the patient, [id number] patient care, completing clinical documentation, obtaining and/or reviewing separately obtained history, counseling and educating the patient/family/caregiver , ordering medications, tests, or procedures, independently interpreting results (not separately reported) and communicating results to the patient/family/caregiver . Polo Colbert MD April 22, 2021 11:17 AM Referring Provider: SELF [200] Allergies As of Date: 04/22/2021 (No Known Allergies) Date Reviewed: 04/22/2021 Reviewed by: Sara Lynn - Fully Assessed Reason for Visit: Consult [173] Primary Visit Diagnosis:Irregular menstrual bleeding [N92.6] Other Visit Diagnosis:Encounter for Rh blood typing [Z01.83] Order(s):CBC [SQCBC] Order #: [id number] FUTURE COMP METABOLIC PANEL [SQCMP] Order #: [id number] FUTURE TSH BLD [SQTSH] Order #: [id number] FUTURE PROLACTIN BLD [SQPROL] Order #: [id number] FUTURE ANTI MULLERIAN HORMONE [SQMULLER] Order #: [id number] FUTURE FSH BLD [SQFSH] Order #: [id number] FUTURE TESTOSTERONE TOTAL [SQTESTO] Order #: [id number] FUTURE DHEA-S BLD [SQDHEAS] Order #: [id number] FUTURE ABO AND RH ONLY [SQABORH] Order #: [id number] FUTURE PELVIC US WHI [] Order #: [id number]: 1 FUTURE PELVIC US WHI [] Order #: [id number]. #:[id number] POINTQty: 1 Prescriptions as of 05/18/2021 - diclofenac, EC, (VOLTAREN) 75 mg EC tablet - ibuprofen (MOTRIN) 800 mg tablet Take 1 tablet by mouth every 8 hours as needed. Medication notes this encounter DICLOFENAC SODIUM 75 MG TABLET,DELAYED RELEASE >> Sara Blount 04/22/2021 11:46 AM >> SARA LYNN TueApr 22, 2021 11:46 AM prn Problem List As Of Date: 04/22/2021 (None) Encounter Status:Closed by POLO COLBERT on 05/18/21 [facility] CONSULT PROGon 04-22-2021 CONSULT PROG HNO ID: [id number] Author: Polo Colbert MD Service: ? Author Type: Physician Type: Consult Progress Note Filed: 05/18/2021 10:59 PM Note Text: Date of Consult: 04/22/2021 Consultation Requested By: Self-refered Shwetha Stern is a 36 year old female presenting with the following history: HISTORY OF PRESENT ILLNESS: Shwetha Stern is a 36 year old female AMA Menstrual cycle irregularity: -20/01 PMHx: Migraine. Anxiety PSHx: CD. Bilateral tubal ligation at CD #2 Meds: MVI Desire for future fertility 36 year old male partner without proven fertility PMHx: Hypothyroidism. GERD PSHx: Denies Meds: Levothyroxine. SA: At home test: Normal Fertility Evaluations and Treatments: Eval Checklist Results Date Comments HSG Not done Hysteroscopy Not done Laparoscopy Not done OPK (Ovulation Predictor Kit) Not done Ovarian [place] Not done Saline Ultrasound Not done Semen Analysis Not done Ultrasound Not done Other (See comments) Not done MENSTRUAL HISTORY: Menarche Age: 12 Length of Cycle: Regular Days: Menstrual Flow: Moderate,Light Menstrual Symptoms: Breast Tenderness,Bloating Patient's last menstrual period was 04/22/2021. PAST MEDICAL HISTORY Diagnosis Date - Migraines PAST SURGICAL HISTORY Procedure Laterality Date - , CLASSIC, IN-HOSP CARE - LAPAROSCOPIC TUBAL LIGATION/RING/CLIP 13 years ago No family history on file. 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 No current facility-administered medications on file prior to visit. ALLERGIES: Patient has no known allergies. Blood Type: NA ASSESSMENT: 36 year old female AMA Menstrual cycle irregularity: -20/01 PMHx: Migraine. Anxiety PSHx: CD. Bilateral tubal ligation at CD #2 Meds: MVI Desire for future fertility 36 year old male partner without proven fertility PMHx: Hypothyroidism. GERD PSHx: Denies Meds: Levothyroxine. SA: At home test: Normal PLAN: Initial evaluation: CD 3, Fasting hormone values HSG Pelvic US SA Follow-up visit: Office visit or virtual visit to review and discuss initial work-up results and determine future treatment plan I spent a total of 47 minutes on the date of the service which included preparing to see the patient, yegx-bu-fuyh patient care, completing clinical documentation, obtaining and/or reviewing separately obtained history, counseling and educating the patient/family/caregiver , ordering medications, tests, or procedures, independently interpreting results (not separately reported) and communicating results to the patient/family/caregiver . Polo Colbert MD April 22, 2021 11:17 AM Normal [facility] Comprehensive metabolic 2000 panelon 04-22-2021 Albumin [Mass/Vol] 4.7 g/dL Normal 3.9-4.9 [facility] Comment on above: Order Comment: Speci men Type: BLOOD SPECIMEN Performed By: #### 2 4323-8, 6-3 #### [facility] CLIA [id number] [address] STATES OF [facility] ALP [Catalytic activity/Vol] 75 U/L Normal 34-123 [facility] Comment on above: Order Comment: Speci men Type: BLOOD SPECIMEN Performed By: #### 2 4323-8, 6-3 #### [facility] CLIA [id number] [address] [place] [facility] ALT With P-5'-P [Catalytic activity/Vol] 9 U/L Normal 7-38 [facility] Comment on above: Order Comment: Speci men Type: BLOOD SPECIMEN Performed By: #### 2 4323-8, 3016-3 #### [facility] CLIA [id number] [address] [place] [facility] Anion gap [Moles/Vol] 9 mmol/L Normal 9-18 [facility] Comment on above: Order Comment: Speci men Type: BLOOD SPECIMEN Performed By: #### 2 4323-8, 6-3 #### [facility] CLIA [id number] [address] AST With P-5'-P [Catalytic activity/Vol] 22 U/L Normal 13-35 [facility] Comment on above: Order Comment: Speci men Type: BLOOD SPECIMEN Performed By: #### 2 3-8, 3015-3 #### [facility] CLIA [id number] [address] Bilirubin [Mass/Vol] 0.4 mg/dL Normal 0.2-1.3 [facility] Comment on above: Order Comment: Speci men Type: BLOOD SPECIMEN Performed By: #### 2 432-8, 3015-3 #### [facility] CLIA [id number] [address] STATES [facility] Calcium [Mass/Vol] 9.3 mg/dL Normal 8.5-10.2 [facility] Comment on above: Order Comment: Speci men Type: BLOOD SPECIMEN Performed By: #### 2 4322-8, 3015-3 #### [facility] CLIA [id number] [address] [place] Chloride [Moles/Vol] 102 mmol/L Normal 97-105 [facility] Comment on above: Order Comment: Speci men Type: BLOOD SPECIMEN Performed By: #### 2 432-8, 6-3 #### [facility] CLIA [id number] [address] [place] CO2 [Moles/Vol] 26 mmol/L Normal 22-30 [facility] Comment on above: Order Comment: Speci men Type: BLOOD SPECIMEN Performed By: #### 2 4323-8, 6-3 #### [facility] CLIA [id number] [address] [place] Creatinine [Mass/Vol] 0.73 mg/dL Normal 0.58-0.96 [facility] Comment on above: Order Comment: Speci men Type: BLOOD SPECIMEN Performed By: #### 2 4323-8, 3015-3 #### [facility] CLIA [id number] [address] [place] GFR/1.73 sq M.predicted MDRD (S/P/Bld) [Vol rate/Area] mL/min/{1.73_m2} Normal [facility] Comment on above: Order Comment: Speci men Type: BLOOD SPECIMEN Result Comment: >60 eGFR (Estimated GFR) Units of measure: mL/min/1.73 meters squared eGFR is derived from the reexpressed MDRD Study equation using the following parameters: serum creatinine, age, gender and race. The creatinine assay has been calibrated to be traceable to IDMS. An eGFR <60 mL/min/1.73m2 for >3 months is consistent with chronic kidney disease. Refer to KDOQI guidelines for clinical interpretation. In patients with unstable renal function, e.g. those with acute kidney injury, the eGFR may not accurately reflect actual GFR. Performed By: #### 2 4323-8, 3015-3 #### [facility] CLIA [id number] [address] [place] [address] [place] Glucose [Mass/Vol] 79 mg/dL Normal 74-99 [facility] Comment on above: Order Comment: [facility] Type: BLOOD SPECIMEN Result Comment: The [place] Diabetes Association (ADA) provides guidance for cutoff values for fasting glucose and random glucose. The ADA defines fasting as no caloric intake for at least 8 hours. Fasting plasma glucose results between 100 to 125 mg/dL indicate increased risk for diabetes (prediabetes). Fasting plasma glucose results greater than or equal to 126 mg/dL meet the criteria for diagnosis of diabetes. In the absence of unequivocal hyperglycemia, results should be confirmed by repeat testing. In a patient with classic symptoms of hyperglycemia or hyperglycemic crisis, random plasma glucose results greater than or equal to 200 mg/dL meet the criteria for diagnosis of diabetes. Reference: Standards of Medical Care in Diabetes 2016, [place] Diabetes Association. Diabetes Care. 2016.39(Suppl 1). Performed By: #### 2 4323-8, 3015-3 #### [facility] CLIA [id number] [address] [place] [facility] Potassium [Moles/Vol] 4.4 mmol/L Normal 3.7-5.1 [facility] Comment on above: Order Comment: Speci men Type: BLOOD SPECIMEN Performed By: #### 2 4323-8, 3016-3 #### [facility] CLIA [id number] [address] [place] Protein [Mass/Vol] 8.0 g/dL Normal 6.3-8.0 [facility] Comment on above: Order Comment: Speci men Type: BLOOD SPECIMEN Performed By: #### 2 4323-8, 3016-3 #### [facility] CLIA [id number] [address] STATES [facility] Sodium [Moles/Vol] 137 mmol/L Normal 136-144 [facility] Comment on above: Order Comment: Speci men Type: BLOOD SPECIMEN Performed By: #### 2 4323-8, 3016-3 #### [facility] CLIA [id number] [address] STATES [facility] Urea nitrogen [Mass/Vol] 16 mg/dL Normal 7-21 [facility] Comment on above: Order Comment: Speci men Type: BLOOD SPECIMEN Performed By: #### 2 4323-8, 3016-3 #### [facility] CLIA [id number] [address] [place] [facility] DHEA-S [Mass/Vol] 182.4 ug/dL Normal 60.9-337.0 [facility] Comment on above: Order Comment: Speci men Type: BLOOD SPECIMEN Result Comment: Refe rence ranges are age and gender specific. For additional information, reference range tables can be found in the laboratory test directory. The normal values are based on the following source: Dehydroepiandrosterone sulfate (DHEA S) [package insert V 17.0 [place]]. [facility], [place], [place]: March 2013. Performed By: #### 2 842-3, TESTO, 01847-4 #### [facility] CLIA [id number] [address] [facility] SerPl-aCncon 04-22-2021 Follitropin Qn 8.1 mU/mL Normal See comment [facility] Comment on above: Order Comment: Speci men Type: BLOOD SPECIMEN Result Comment: Refe rence range: Follicular: 2.5 to 10.2 Midcycle: 3.4 to 33.4 Luteal: 1.5 to 9.1 : <0.3 [place]: 23.0 to 116.3 Performed By: #### 2 842-3, TESTO, 66074-2 #### [facility] CLIA [id number] [address] OF [facility] Prolactin SerPl-mCncon 04-22 Prolactin [Mass/Vol] 5.9 ng/mL Normal 2.8-29.2 [facility] Comment on above: Order Comment: Speci men Type: BLOOD SPECIMEN Result Comment: Refe rence Range : 9.7-208.5 Postmenopausal: 1.8-20.3 Performed By: #### 2 842-3, TESTO, 65121-1 #### [facility] CLIA [id number] [address] OF [facility] TESTOSTERONE TOTALon 021 Testosterone [Mass/Vol] 34 ng/dL Normal 9-48 [facility] Comment on above: Order Comment: Speci men Type: BLOOD SPECIMEN Performed By: #### 2 842-3, TESTO, 73327-6 #### [facility] CLIA [id number] [address] [place] TSH SerPl-aCncon 04-22-2021 TSH Qn 1.670 m[IU]/L Normal 0.270-4.200 [facility] Comment on above: Order Comment: Speci men Type: BLOOD SPECIMEN Result Comment: If t he patient is , TSH reference range varies by gestational period: First Trimester (weeks 9-12): 0.180-2.990 mcIU/mL Second Trimester: 0.110-3.980 mcIU/mL Third Trimester: 0.480-4.710 mcIU/mL Karri Burrows et al. A Practical Approach for the Verifications and Determination of Site- and Trimester-Specific Reference Intervals for Thyroid Function tests in . Thyroid, 2019:29:3:412-420. Henry Childers et al. 2017 Guidelines of the [place] Thyroid Association for the Diagnosis and Management of Thyroid Disease during and the . Thyroid, 2017:27:3:315-389. Performed By: #### 2 4323-8, 3016-3 #### [facility] CLIA [id number] [address] EMGon 03-11-2018 [facility] Patient: SHWETHA STERN[address] MR#: [id number] [place], [place] [address] : 1985 [address]: Dept: PDOC Loc: [facility] Electromyogram Service Dt: 03/11/18 Report#: [id number] Adm Dt: 03/02/18 Dis Dt: Electromyogram - Patient of Patient of: March 11, 2018. This 33-year-old woman was referred for EMG and nerve conduction studies because of low back pains and lower extremity pains. She stands 4 feet 10 with warm limbs. Impression: The conduction studies were normal. EMG showed irritability at L4-L5 paraspinal muscles bilaterally. The motor unit potentials normal. Clinical interpretation: #1 mild bilateral L4-L5 radiculopathy #2 no tarsal tunnel syndrome #3 no peripheral neuropathy #4 no myopathy Harpal Brooks M.D.,FAAN,FAANE M,FACNS Motor conduction studies: Right peroneal EDB ankle [...] Normal Left sural LM to MC I.5 08.29 50 comment: Normal EMG studies were done with a disposable concentric needle in both lower extremity muscles and lumbosacral paraspinal muscles: FHB, EDB, EHL, tibialis anterior, peroneus longus, lateral gastrocnemius, medial gastrocnemius, vastus lateralis, vastus medialis, lateral hamstring, medial hamstring, gluteus manuel, paraspinal, L1, L2, L3, L4, L5, S1. Irritability was seen at L4-L5 paraspinal muscles bilaterally. The motor potentials normal. Harpal Brooks M.D.,KASANDRA,MARSHA Yusuf,JOSE MIGUEL Normal [facility] Clinical Summary: HMSPatient IDon 02-17-2018 MOP Invalid Interpretation Code [facility] Work Phone: Office Visit: New - visi t with practice, Rm: [phone] NEGATED: Highlighted rowDocumentation of current medications (procedure) Done Invalid Interpretation Code [facility] Work Phone: NEGATED: Highlighted rowMRI (magnetic resonance imaging) history of the lumbar spine on 10/24/2017 at [facility] Invalid Interpretation Code [facility] Work Phone: Clinical Lists Update: Prelo ad Extendedon 02-16-2018 Tobacco smoking status NHIS Tobacco smoking status NHIS Invalid Interpretation Code [facility] Work Phone: JÚNIOR PATH REVIEWon 12-29-2017 PATH REVIEW-JÚNIOR ASHANTI Normal [facility] Comment on above: Result Comment: By h er/his signature above, the Pathologist listed as making the final interpretation certifies that she/he has personally reviewed this case. Performed By: #### P R34 ####[facility] [place] [address] PROTEIN ELECTROPHORESIS + IM MUNOFIXATION, SERUMon 12-29-2017 IMMUNOFIXATION INTERP NORMAL Normal [facility] Comment on above: Result Comment: No m onoclonal proteins detected by immunofixation. Performed By: #### I FE2 ####[facility] [place] [address] INTERPRETATION ABNORMAL Normal [facility] Comment on above: Result Comment: Incr ease in polyclonal gamma globulins. Performed By: #### I FE2 ####[facility] [place] [address] MONOCLONAL PROTEIN NONE DETECTED Normal [facility] Comment on above: Performed By: #### I FE2 ####[facility] [place] [address] SPE PATH REVIEWon 12-29-2017 PATH REVIEW-SPE ASHANTI Normal [facility] Comment on above: Result Comment: By h er/his signature above, the Pathologist listed as making the final interpretation certifies that she/he has personally reviewed this case. Performed By: #### P R12 ####[facility] [place] [address] FLORENTINO PANELon 12-27-2017 ANTINUCLEAR ANTIBODY Negative Normal NEGATIVE [facility] Comment on above: Performed By: #### A NAP2 ####[facility] [place] [address] ANTI-CENTROMERE <0.2 Normal [facility] Comment on above: Result Comment: REF VALUES< 1.0 = NEGATIVE>=1.0 = POSITIVE Performed By: #### A NAP2 ####[facility] [place] [address] ANTI-CHROMATIN <0.2 Normal [facility] Comment on above: Result Comment: REF VALUES< 1.0 = NEGATIVE>=1.0 = POSITIVE Performed By: #### A NAP2 ####[facility] [place] [address] ANTI-DNA [DS] 3.0 IU/mL Normal [facility] Comment on above: Result Comment: REF VALUESNEGATIVE: <= 4 IU/MLEQUIVOCAL: 5- 9 IU/MLPOSITIVE: >=10 IU/ML Performed By: #### A NAP2 ####[facility] [place] [address] ANTI-ROWAN-1 <0.2 Normal [facility] Comment on above: Result Comment: REF VALUES< 1.0 = NEGATIVE>=1.0 = POSITIVE Performed By: #### A NAP2 ####[facility] [place] [address] ANTI-RIBOSOMAL P <0.2 Normal [facility] Comment on above: Result Comment: REF VALUES< 1.0 = NEGATIVE>=1.0 = POSITIVE Performed By: #### A NAP2 ####[facility] [place] [address] ANTI-MICROWAVE REMOTE SENSING SCIENTIST <0.2 Normal [facility] Comment on above: Result Comment: REF VALUES< 1.0 = NEGATIVE>=1.0 = POSITIVE Performed By: #### A NAP2 ####[facility] [place] [address] ANTI-SCL-70 <0.2 Normal [facility] Comment on above: Result Comment: REF VALUES< 1.0 = NEGATIVE>=1.0 = POSITIVE Performed By: #### A NAP2 ####[facility] [place] [address] ANTI-SM <0.2 Normal [facility] Comment on above: Result Comment: REF VALUES< 1.0 = NEGATIVE>=1.0 = POSITIVE Performed By: #### A NAP2 ####[facility] [place] [address] ANTI-SM/MICROWAVE REMOTE SENSING SCIENTIST <0.2 Normal [facility] Comment on above: Result Comment: REF VALUES< 1.0 = NEGATIVE>=1.0 = POSITIVE Performed By: #### A NAP2 ####[facility] [place] [address] ANTI-SSA <0.2 Normal [facility] Comment on above: Result Comment: REF VALUES< 1.0 = NEGATIVE>=1.0 = POSITIVE Performed By: #### A NAP2 ####[facility] [place] [address] ANTI-SSB <0.2 Normal [facility] Comment on above: Result Comment: REF VALUES< 1.0 = NEGATIVE>=1.0 = POSITIVE Performed By: #### A NAP2 ####[facility] [place] [address] PROTEIN ELECTROPHORESIS + IM MUNOFIXATION, SERUMon 12-27-2017 Albumin 4.4 g/dL Normal 3.4 - 5.0 [facility] Comment on above: Performed By: #### I FE2 ####[facility] [place] [address] ALPHA 1 GLOBULIN 0.3 g/dL Normal 0.2 - 0.6 [facility] Comment on above: Performed By: #### I FE2 ####[facility] [place] [address] ALPHA 2 GLOBULIN 0.7 g/dL Normal 0.4 - 1.1 [facility] Comment on above: Performed By: #### I FE2 ####[facility] [place] [address] BETA GLOBULIN 0.7 g/dL Normal 0.5 - 1.2 [facility] Comment on above: Performed By: #### I FE2 ####[facility] [place] [address] GAMMA GLOBULIN 1.7 g/dL High 0.5 - 1.4 [facility] Comment on above: Performed By: #### I FE2 ####[facility] [place] [address] C-REACTIVE PROTEINon 018 C reactive protein (CRP) 0.13 mg/dL Normal [facility] Comment on above: Result Comment: REF VALUE< 1.00 Performed By: #### C RP ####[facility] [place] [address] C3 COMPLEMENTon 12-26-2017 C3 COMPLEMENT 131 mg/dL Normal 87 - 200 [facility] Comment on above: Performed By: #### C 3 ####[facility] [place] [address] C4 COMPLEMENTon 12-26-2017 C4 COMPLEMENT 30 mg/dL Normal 10 - 50 [facility] Comment on above: Performed By: #### C 4 ####[facility] [place] [address] PROTEIN ELECTROPHORESIS + IM MUNOFIXATION, SERUMon 12-26-2017 Protein 7.8 g/dL Normal 6.4 - 8.2 [facility] Comment on above: Performed By: #### I FE2 ####[facility] [place] [address] SEDIMENTATION RATE, ERYTHROC YTEon 12-26-2017 SEDIMENTATION RATE, ERYTHROCYTE 3 mm/h Normal 0 - 20 [facility] Comment on above: Performed By: #### E SRWS ####[facility] [place] [address] MRI Spine Lumbar w/o Contras ton 10-24-2017 MRI Spine Lumbar w/o Contrast Patient Name: SHWETHA STERN MRI Exam Date/Time 10/24/2017 13:17:18 EST Exam MRI Spine Lumbar w/o Contrast Ordering Physician MARBELLA CANTOR MICHELLE Accession Number [id number] CPT4 Codes 29473 () Reason For Exam Pain in right [...] ALFRED Transcribed Date and Time: 10/24/2017 2:56 Normal [facility] Vital Signs Date Time Vital Sign Value Performing Clinician Facility 11-13-2024 15:39-0400 Body mass index (BMI) [Ratio] 19.42 kg/m2 Georgia Gunter MD Work Phone: [facility] 11-13-2024 15:39-0400 Body weight 44.36 kg Georgia Gunter MD Work Phone: [facility] 11-13-2024 15:39-0400 Diastolic blood pressure 60 mm[Hg] Georgia Gunter MD Work Phone: [facility] 11-13-2024 15:39-0400 Systolic blood pressure 100 mm[Hg] Georgia Gunter MD Work Phone: [facility] 10-22-2024 07:26-0500 Body height 151.1 cm Sherly Aspen [employer]AD [employer] Work Phone: [facility] 10-22-2024 07:26-0500 Body mass index (BMI) [Ratio] 19.46 kg/m2 Sherly Misa LEAD GENERATION MARKETING MANAGER.[employer] Work Phone: [facility] 10-22-2024 07:26-0500 Body weight 44.45 kg Sherly Aspen LEAD GENERATION MARKETING MANAGER.[employer] Work Phone: [facility] 10-22-2024 07:26-0500 Diastolic blood pressure 60 mm[Hg] Sherly Misa LEAD GENERATION MARKETING MANAGER.[employer] Work Phone: [facility] 10-22-2024 07:26-0500 Systolic blood pressure 98 mm[Hg] Sherly Misa LEAD GENERATION MARKETING MANAGER.[employer] Work Phone: [facility] 12-17-2023 10:32-0400 Body temperature 97.6 [degF] [facility] [place] [facility] 12-17-2023 10:32-0400 Diastolic blood pressure 64 mm[Hg] [facility] 12-17-2023 10:32-0400 Heart rate 66 /min [facility] 12-17-2023 10:32-0400 Respiratory rate 14 /min [facility] [place] [facility] 12-17-2023 10:32-0400 SaO2% (BldA) [Mass fraction] 99 % [facility] 12-17-2023 10:32-0400 Systolic blood pressure 127 mm[Hg] [facility] 12-17-2023 10:12-0400 Body height 152.4 cm [facility] 12-17-2023 10:12-0400 Body mass index (BMI) [Ratio] 19.2 kg/m2 [facility] 12-17-2023 10:12-0400 Body weight 44.65 kg [facility] 05-22-2023 11:25-0400 Blood Pressure Location AYLIN FRITZ MD [facility] 05-22-2023 11:25-0400 Body temperature 97.7 [degF] AYLIN FRITZ MD [facility] 05-22-2023 11:25-0400 Diastolic Blood Pressure Non-Invasive 80 1 AYLIN FRITZ MD [facility] 05-22-2023 11:25-0400 Heart rate 87 /min AYLIN FRITZ MD [facility] 05-22-2023 11:25-0400 Respiratory rate 16 /min AYLIN FRITZ MD [facility] 05-22-2023 11:25-0400 Systolic Blood Pressure Non-Invasive 121 1 AYLIN FRITZ MD [facility] NEGATED: Highlighted [id number] 11:13-0400 BMI (Body Mass Index) 23.42 kg/m2 Earline Moxcey [facility] Work Phone: NEGATED: Highlighted [id number] 11:13-0400 BP Diastolic 84 mm[Hg] Earline Moxcey [facility] Work Phone: NEGATED: Highlighted [id number] 11:13-0400 BP Systolic 117 mm[Hg] Earline Moxcey [facility] Work Phone: NEGATED: Highlighted [id number] 11:13-0400 Height 143 cm Earline Moxcey [facility] Work Phone: NEGATED: Highlighted [id number] 11:13-0400 Height 142.88 cm Earline Moxcey [facility] Work Phone: NEGATED: Highlighted [id number] 11:13040 Pulse (Heart Rate) 68 /min Earline King FRONT DESK ASSOCIATE [facility] Work Phone: NEGATED: Highlighted [id number] 11: Weight 48 kg Earline Moxcgaldino FRONT DESK ASSOCIATE [facility] Work Phone: NEGATED: Highlighted [id number] 11:040 Weight 47.63 kg Earline Denisxcgaldino FRONT DESK ASSOCIATE [facility] Work Phone: Encounters Encounter Date Encounter Type Care Provider Facility Start: 04-17-2025 End: 04-17-2025 ambulatory MARZENA DUTTA Facility:[facility] Start: 03-25-2025 End: 03-26-2025 ambulatory Marzena Dutta MD Work Phone: OB/Gynecology Comment on above: Non urgent medical q uestion Start: 03-18-2025 End: 03-19-2025 Follow-up encounter Marzena Dutta MD Work Phone: OB/Gynecology Start: 03-15-2025 End: 03-15-2025 ambulatory MARZENA DUTTA Facility:[facility] Start: 02-06-2025 End: 02-06-2025 ambulatory Marzena Dutta MD Work Phone: OB/Gynecology Comment on above: PA for clomid Start: 02-06-2025 End: 02-06-2025 E-mail encounter from caregiver Marzena Dutta MD Work Phone: OB/Gynecology Start: 02-04-2025 End: 02-04-2025 Telephone encounter Marzena Dutta MD Work Phone: OB/Gynecology Comment on above: Results Start: 02-01-2025 End: 02-01-2025 ambulatory Jaelyn Miller MD Work Phone: [facility] Work Phone: Start: 02-01-2025 End: 02-01-[address] Marzena Barros MD -Radiology [facility] Work Phone: Start: 02-01-2025 End: 02-01-2025 ambulatory Jaelyn Miller Facility:[facility] Start: 01-16-2025 End: 01-16-2025 ambulatory MARZENA DUTTA Facility:[facility] Start: 12-31-2024 End: 01-02-2025 ambulatory Georgia Gunter MD Work Phone: OB/Gynecology Comment on above: Clomid Start: 11-13-2024 End: 11-13-2024 ambulatory GEORGIA GUNTER Facility:[facility] Start: 11-13-2024 End: 11-13-2024 Patient encounter procedure Georgia Gunter MD Work Phone: OB/Gynecology Comment on above: Cervical high risk h uman papillomavirus (HPV) DNA test positive (Primary Dx) Start: 11-13-2024 End: 01-13-2025 Follow-up encounter Sherly Aspen LEAD GENERATION MARKETING MANAGER.HOME MISSION WORKER Work Phone: OB/Gynecology Comment on above: Results Start: 11-12-2024 End: 11-12-2024 ambulatory SHERLY MISA Facility:[facility] Start: 11-12-2024 End: 01-12-2025 Follow-up encounter Sherly Misa LEAD GENERATION MARKETING MANAGER.HOME MISSION WORKER Work Phone: OB/Gynecology Comment on above: Results Start: 11-12-2024 End: 11-12-2024 Telephone encounter Sherly Aspen LEAD GENERATION MARKETING MANAGER.HOME MISSION WORKER Work Phone: OB/Gynecology Comment on above: Results Start: 11-09-2024 End: 11-09-2024 Orders Only Sherly Misa LEAD GENERATION MARKETING MANAGER.HOME MISSION WORKER Work Phone: OB/Gynecology Comment on above: Missed menses (Prima ry Dx) Start: 10-30-2024 End: 10-30-2024 Follow-up encounter Sherly Aspensisi VENTURA.HOME MISSION WORKER Work Phone: OB/Gynecology Comment on above: HPV (human papilloma virus) infection (Primary Dx) Start: 10-22-2024 End: 10-22-2024 ambulatory [facility] Facility:[facility] Start: 10-22-2024 End: 10-22-2024 Patient encounter procedure Sherly Whitfieldcalf LEAD GENERATION MARKETING MANAGER.HOME MISSION WORKER Work Phone: OB/Gynecology Comment on above: Encounter for gyneco logical examination (general) (routine) without abnormal findings (Primary Dx); Screening for cervical cancer; Encounter for screening for human papillomavirus (HPV) Start: 10-22-2024 End: 10-22-2024 Patient encounter status Sherly Bynum AUDREY.HOME MISSION WORKER Work Phone: [facility] Start: 09-17-2024 End: 09-17-2024 ambulatory [facility] Facility:[facility] Start: 04-04-2024 End: 04-04-2024 ambulatory [facility] Facility:[facility] Start: 12-17-2023 End: 12-17-2023 Emergency department patient visit [facility] Work Phone: Start: 06-22-2023 End: 06-22-2023 ambulatory [facility] [place] Start: 05-27-2023 End: 05-28-2023 ambulatory ETHAN FREY [facility] Start: 05-27-2023 End: 05-27-2023 Subsequent hospital visit by physician Eve Louise MD Work Phone: [facility] Comment on above: Family history of br east cancer Start: 05-22-2023 End: 05-22-2023 Emergency department patient visit AYLIN FRITZ MD [facility] Start: 04-06-2023 Non-patient / Non-visit Dr. Rowan Frey Work Phone: [facility] Start: 04-06-2023 End: 04-06-[address] Ethan Frey Work Phone: [facility] Work Phone: Start: 04-06-2023 End: 04-06-[address] 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 Start: 10-27-2022 ambulatory [facility] Start: 01-27-2022 End: 01-27-2022 [facility] Start: 12-24-2021 End: 12-24-2021 Patient encounter procedure [facility] [place] Start: 10-26-2021 End: 10-26-2021 Discharged Recurring [facility] Start: 10-26-2021 Registered Recurring [facility] Start: 03-11-2018 Patient encounter Odette Cruz cility:[facility] Start: 02-17-2018 End: 02-17-2018 Patient encounter procedure Elizabeth Rubin MD Work Phone: [facility] Work Phone: Start: 02-08-2018 Emergency department patient visit Cierra Henderson [facility] Start: 12-26-2017 Ambulatory [facility] Fac ility:C Start: 10-24-2017 Ambulatory NAHUM [facility] Procedures Date Procedure Procedure Detail Performing Clinician Start: 02-01-2025 Imaging of abdomen Sun Miller MD Work Phone: Start: 11-13-2024 UA DIP,URINE HCG (POC) Georgia Gunter MD Work Phone: Start: 02-17-2018 End: 02-17-2018 Blood pressure within normal parameters - no follow-up required Elizabeth Rubin MD Work Phone: Start: 02-17-2018 End: 02-17-2018 BMI documented within normal parameters - no follow-up plan is required Elizabeth Rubin MD Work Phone: Start: 02-17-2018 End: 02-17-2018 Current medications documented Elizabeth Rubin MD Work Phone: Start: 02-17-2018 End: 02-17-2018 Pain assessment documented as positive - no follow-up/reason not given Elizabeth Rubin MD Work Phone: Start: 02-17-2018 End: 02-17-2018 Tobacco non-user Elizabeth Rubin MD Work Phone: H/O: surgery History of rever brigida of tubal ligation Marzena Dutta MD Work Phone: Plan of Treatment Date Care Activity Detail Author Start: 02-28-2029 Urine microalbumin profile DTaP,Tdap,Td Vaccine (4 - Td or Tdap) [facility] Start: 10-22-2025 Screening for malign ant neoplasm of cervix Cervical Cancer Screening [facility] Start: 10-22-2025 End: 10-22-2025 Patient encounter procedure 10/22/2025 7:00 AM EST Office Visit OB/Gynecology [address] [place], [place] [id number] Sherly Bynum APRN.HOME MISSION WORKER [address] [facility] [address] [place], [place] [id number] Annual OB/Gynecology Comment on above: Annual Start: 04-29-2025 Influenza vaccination Influenza Vacc ine (#1) [facility] Start: 04-18-2025 End: 07-18-2025 Progesterone [Mass/volume] in Serum or Plasma PROGESTERONE Lab Routine Female infertility Expected: 04/18/2025 (Approximate), Expires: 07/18/2025 [facility] Work Phone: Comment on above: Expected: 04/18/2025 (Approximate), Expires: 07/18/2025 Start: 04-17-2025 End: 04-17-2025 ambulatory 04/17/2025 7:15 AM EDT Results Only Ravi Pennington [facility] [address] [place] [address] progesterone Ravi Moserwn [facility] Comment on above: progesterone Start: 02-04-2025 End: 05-06-2025 Progesterone [Mass/volume] in Serum or Plasma PROGESTERONE Lab Routine Female infertility of tubal origin History of reversal of tubal ligation Expected: 02/04/2025, Expires: 05/06/2025 [facility] Work Phone: Comment on above: Expected: 02/04/2025 , Expires: 05/06/2025 Start: 01-16-2025 End: 01-16-2025 Patient encounter procedure 01/16/2025 3:00 PM EDT Office Visit OB/Gynecology [address] [place] [address] Marzena Napoles MD [address] [place] [address] Discuss HSG OB/Gynecology Comment on above: Discuss HSG Start: 11-13-2024 End: 11-13-2024 Patient encounter procedure 11/13/2024 3:40 PM EDT Office Visit OB/Gynecology [address] [place] [address] Georgia Gunter MD [address] [place] [address] Colposcopy OB/Gynecology Comment on above: Colposcopy Start: 11-12-2024 End: 11-12-2024 ambulatory 11/12/2024 3:15 PM EDT Results Only Ravi Pennington [facility] [address] [place] [address] Ravi Pennington [facility] Start: 11-09-2024 End: 02-08-2025 Choriogonadotropin.beta subunit [Units/volume] in Serum or Plasma [facility] Work Phone: Comment on above: Expected: 11/09/2024 , Expires: 02/08/2025 Start: 04-29-2024 Covid-19 Vaccine () Covid-19 Vaccine ( season) [facility] Start: 12-17-2023 [facility] Start: 04-29-2023 FLU (#1) FLU (#1) [facility] Start: 04-06-2023 25 hydroxy includes fractions if performed VITAMIN D 25 HYDROXY [facility] Start: 04-06-2023 Blood count complete auto&auto difrntl wbc COMPLETE CBC W/AUTO DIFF WBC [facility] Start: 04-06-2023 Collection venous bl ood venipuncture ROUTINE VENIPUNCTURE [facility] Start: 04-06-2023 Comprehensive metabo lic panel COMPREHEN METABOLIC PANEL [facility] Start: 04-06-2023 Sedimentation rate r bc automated RBC SED RATE AUTOMATED [facility] Start: 04-06-2023 Procedure [facility] Start: 01-31-2021 COVID-19 (2 - Booste r for Kristian series) COVID-19 (2 - Booster for Kristian series) [facility] Start: 02-17-2018 End: 02-17-2018 Radex spine lumbosacral minimum 4 views XR LUMBAR 4VWS FLEX/EX [facility] Work Phone: Start: 02-17-2018 End: 02-17-2018 Appointment Appointment [facility] Work Phone: Start: 2007 Microscopic observat ion [Identifier] in Cervix by Cyto stain Pap Smear [facility] Start: 2007 Screening for malign ant neoplasm of cervix Cervical Cancer Screening [facility] Start: 2004 Hepatitis C screening Hepatitis C Sc venkatesh [facility] Start: 2004 HIV screening HIV Screening [facility] Start: 2002 MenB (1 of 2 - MenB 2-Dose Series Bexsero) MenB (1 of 2 - MenB 2-Dose Series Bexsero) [facility] Start: 1993 Tetanus Diphtheria a nd Pertussis Vaccines (1 - Tdap) Tetanus Diphtheria and Pertussis Vaccines (1 - Tdap) [facility] Start: 1987 MMR (1 of 1 - Standa rd series) MMR (1 of 1 - Standard series) [facility] Start: 1987 Varicella (1 of 2 - 2-dose childhood series) Varicella (1 of 2 - 2-dose childhood series) [facility] Start: 1986 Hepatitis B (1 of 3 - 3-dose series) Hepatitis B (1 of 3 - 3-dose series) [facility] End: 11-12-2025 Choriogonadotropin.beta subunit [Units/volume] in Serum or Plasma HCG QUANTITATIVE Lab Routine Positive test 2x per week for 2 Occurrences starting 11/12/2024 until 11/12/2025, 1 completed [facility] Work Phone: Comment on above: 2x per week for 2 Oc currences starting 11/12/2024 until 11/12/2025, 1 completed COLPOSCOPY COLPOSCOPY Proce dures Routine HPV (human papilloma virus) infection Ordered: 10/30/2024 [facility] Work Phone: Comment on above: Ordered: 10/30/2024 COLPOSCOPY COLPOSCOPY Proce dures Routine Cervical high risk human papillomavirus (HPV) DNA test positive Ordered: 11/13/2024 [facility] Work Phone: Comment on above: Ordered: 11/13/2024 Genetic Sendout: Com mon Hereditary Cancers Panel Genetic Sendout: Common Hereditary Cancers Panel Lab Routine Family history of breast cancer 05/27/2023 11:39 AM EDT [facility] Work Phone: PAP TEST PAP TEST Lab Mu white Encounter for gynecological examination (general) (routine) without abnormal findings Screening for cervical cancer Encounter for screening for human papillomavirus (HPV) Ordered: 10/22/2024 [facility] Work Phone: Comment on above: Ordered: 10/22/2024 Patient Education ED Dog Bite [facility] Work Phone: Patient referral [facility] Work Phone: Immunizations Immunization Date Immunization Notes Care Provider [facility] 06-19-2024 influenza, seasonal, injectable, preservative free Georgia Gunter MD Work Phone: [facility] 06-19-2024 influenza virus vaccine, unspecified formulation Marzena Dutta MD Work Phone: [facility] 12-04-2020 unknown vaccine or immune globulin Georgia Gunter MD Work Phone: [facility] 06-04-2019 influenza, injectabl e, quadrivalent, preservative free Georgia Gunter MD Work Phone: [facility] 06-04-2019 tuberculin skin test ; purified protein derivative solution, intradermal Georgia Gunter MD Work Phone: [facility] 02-28-2019 tetanus toxoid, reduced diphtheria toxoid, and acellular pertussis vaccine, adsorbed [facility] 07-26-2018 hepatitis B vaccine, adult dosage [facility] 07-26-2018 influenza, injectabl e, quadrivalent, preservative free [facility] 07-26-2018 influenza, seasonal, injectable [facility] 11-29-2011 hepatitis B vaccine, adult dosage Georgia Gunter MD Work Phone: [facility] 10-27-2011 hepatitis B vaccine, adult dosage Georgia Gunter MD Work Phone: [facility] 10-27-2011 tetanus toxoid, reduced diphtheria toxoid, and acellular pertussis vaccine, adsorbed Georgia Gunter MD Work Phone: [facility] 05-25-2011 influenza virus vaccine, whole virus Georgia Gunter MD Work Phone: [facility] 08-31-2007 influenza virus vaccine, whole virus Georgia Gunter MD Work Phone: [facility] 07-24-2003 influenza, seasonal, injectable Georgia Gunter MD Work Phone: [facility] 07-16-2002 influenza, seasonal, injectable Georgia Gunter MD Work Phone: [facility] 02-08-2002 diphtheria, tetanus toxoids and acellular pertussis vaccine, unspecified formulation Georgia Gunter MD Work Phone: [facility] No information available. Earline King FRONT DESK ASSOCIATE [facility] Work Phone: Payers Date Payer Category Payer Medicaid [id number] 2024 Private Health Insurance [id number] 2024 Self-pay [id number] 2024 Unknown [id number] 2024 Unknown [id number] 2022 Private Health Insurance 1985 Unknown [id number] 1985 Unknown [id number] 1985 Unknown [id number] [id number]. [id number] Private Health Insurance [id number] Unknown Unknown [id number] Unknown [id number] [id number] Unknown [id number] Unknown [id number] Social History Date Type Detail Facility Start: 10-27-2020 End: 12-17-2023 Assertion Unknown if ever smoked [facility] Work Phone: Start: 08-27-2020 Non-smoker [facility] Start: 1985 Sex Assigned At Female W [facility] Tobacco smoking status No Smoking Status Entered [facility] Start: 1985 Sex Assigned At Not on file [facility] Start: 10-22-2024 End: 01-16-2025 Gender identity Not on file [facility] Start: 12-17-2023 End: 10-22-2024 Tobacco smoking status NHIS Never smoked tobacco [facility] Start: 10-22-2024 Tobacco use and exposure Smokeless tobacco non-user [facility] Start: 10-22-2024 End: 01-16-2025 Alcoholic beverage intake Ex-drinker (finding) [facility] Start: 10-22-2024 End: 01-16-2025 History of Social function [facility] National Score (1-100), lower number is lower risk 70 [facility] Start: 04-07-2021 Gender identity Identifies as female gender (finding) [facility] Start: 04-07-2021 Sexual orientation Heterosexual (callie owens) [facility] NEGATED: Highlighted rowStart: 02-17-2018 End: 02-17-2018 Employment detail 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 documented in this encounter [facility] 03-26-2025 Telephone encounter Note No concerns - continue to monitor. [facility] 02-04-2025 Telephone encounter Note ordered [facility] 02-04-2025 Miscellaneous Notes ordered Patient notified and voiced understanding. Please file pended order for day 21 progesterone. Ivy Soler RN Clomid ordered Harper every day or every other day for about one week beginning 5 days after last day of menses Patient called back and wants to proceed with clomid. Maggie in [place] pharmacy. Requesting [email or web address] message be sent with all directions. Please place orders and advise. Any other instructions other than to take on CD 3-7, get day 21 progesterone or 7 days after ovulation was thought to occur? Angelica Duff RN Patient notified. She wants to discuss with S.O. first. Will call the office with her decision. Georgia Franks RN Left message to call office. Ivy Soler RN Yes- we can do that for a few cycles but based on age she can also see RADHA if she would like to- does not need to wait longer. If she dose clomid or femara she needs to take on CD 3-7, get day 21 progesterone or 7 days after ovulation was thought to occur. Let me know how she wants to proceed. Patient notified. Patient asking if she needs Clomid therapy or what the next steps are since she has been trying to conceive for the last 6 months since her tubal reversal. Georgia Franks RN Left message to call office. Ivy Soler RN Please notify patient that I reviewed HSG that was completed at [facility]- she is fine to start trying for at this time- has h/o tubal reversal. Appears tubes are both patent. Could have some fluid in left tube or it could be post op changes as well. documented in this encounter [facility] 02-04-2025 Telephone encounter Note Patient notified and voiced understanding. Please file pended order for day 21 progesterone. Ivy Soler RN [facility] 02-04-2025 Telephone encounter Note Clomid ordered Harper every day or every other day for about one week beginning 5 days after last day of menses [facility] 02-04-2025 Telephone encounter Note Patient called back and wants to proceed with clomid. Maggie in [place] pharmacy. Requesting Tã Em Bét message be sent with all directions. Please place orders and advise. Any other instructions other than to take on CD 3-7, get day 21 progesterone or 7 days after ovulation was thought to occur? Angelica Duff RN [facility] 02-04-2025 Telephone encounter Note Patient notified. She wants to discuss with S.O. first. Will call the office with her decision. Georgia Franks RN [facility] 02-04-2025 Telephone encounter Note Left message to call office. Ivy Soler RN T [facility] 02-04-2025 Telephone encounter Note Yes- we can do that for a few cycles but based on age she can also see RADHA if she would like to- does not need to wait longer. If she dose clomid or femara she needs to take on CD 3-7, get day 21 progesterone or 7 days after ovulation was thought to occur. Let me know how she wants to proceed. [facility] 02-04-2025 Telephone encounter Note Patient notified. Patient asking if she needs Clomid therapy or what the next steps are since she has been trying to conceive for the last 6 months since her tubal reversal. Georgia Franks RN [facility] 02-04-2025 Telephone encounter Note Left message to call office. Ivy Soler RN [facility] 02-04-2025 Telephone encounter Note Please notify patient that I reviewed HSG that was completed at [facility]- she is fine to start trying for at this time- has h/o tubal reversal. Appears tubes are both patent. Could have some fluid in left tube or it could be post op changes as well. [facility] 02-01-2025 Radiology Diagnostic study note [facility] [address], [place] [id number] Salpingogram MR#: [id number] Acct: [id number] Name: SHWETHA STERN Rep #: [id number] : 1985 F [id number] From: Brigette Gaviria MD PCP: Dr. Jaelyn Miller MD Status: REG CL I Study:Salpingogram Date of Exam: 5 Exam# [id number] Ordering Dr: Marzena Aguilar MD PROCEDURE: SALPINGOGRAM 02/01/2025 REASON FOR EXAM: TUBAL REVERSAL, INFERTILITY TECHNIQUE: Fluoroscopic imaging was provided during the salpingogram. The technical part of the procedure was performed by the primary care physician. COMPARISON: No relevant prior. FINDINGS: Balloon tip catheter is inflated in the body of the uterus. Uterus and uterine cornua appear normal. [id number] hydrosalpinx is seen at the fimbriated end of the left fallopian tube. The isthmus and ampullary portions of the left fallopian tube appear normal. The right fallopian tube is normal in caliber. Pelvic spillage of contrast was noted bilaterally, more rapid on the right. RAD/Salpingogram IMPRESSION: 1. Left hydrosalpinx. 2. Bilateral spillage of contrast was noted. 3. Unremarkable uterus. Reading Location: [place] [address] CC: Dr Marzena Barros MD; Dr. Jaelyn Miller MD ~ Bonding Supervisor: Signed [facility] 01-16-2025 Note HNO ID: [id number] Author: MARZENA NAPOLES MD Service: ? Author Type: Physician Type: Progress Notes Filed: 01/16/2025 15:20 Note Text: Subjective The patient is a 39-year-old female with a history of tubal ligation reversal presenting for evaluation of fertility. Infertility - Underwent tubal ligation reversal in June at [facility] in [place]. - Advised to wait 6 months post-reversal before seeking further evaluation. - Has been tracking ovulation and menstrual cycles as instructed. - Reports regular menstrual cycles since the reversal, approximately 25 days in length. - Prior to the reversal, had a history of irregular menstrual cycles since menarche. - Last menstrual period (LMP): Expected to start on January 27. - Denies previous hysterosalpingogram (HSG) testing. No current symptoms (positive or negative) were explicitly mentioned in the transcript; therefore, there are no entries to include in the ROS based on the provided information. Objective Blood pressure 92/60, weight 45.4 kg (100 lb), last menstrual period 12/31/2024. General: Well-appearing, no acute distress. Assessment AND Plan 1. 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 Encounter for fertility testing (Z31.41) 3. History of reversal of tubal ligation (Z98.890) - Patient underwent tubal ligation reversal in June at [facility]. - Discussed the importance of confirming tubal patency post-reversal. - Ordered Hysterosalpingography (HSG) to be performed at [facility] between cycle days 6-10. - Patient instructed to call the office on the first or second day of her menstrual cycle to schedule the HSG, tentatively planned for February 04. - Advised patient to take ibuprofen prior to the procedure to manage anticipated cramping and discomfort. - Recommended performing a home test the night before the HSG to confirm non-. - Discussed potential costs of the HSG, estimated around $1,000, and advised patient to verify insurance coverage. - If HSG confirms at least one patent tube, discussed potential for proceeding with Clomid therapy. - If both tubes are occluded, advised referral back to reproductive endocrinology and infertility specialists. Recording using [employer] software for draft documentation of the visit was discussed with the patient/authorized enrollment eligibility representative; all questions welcomed and answered. Patient/authorized enrollment eligibility representative agreed to proceed Medical Decision Making: Problems: Low: Acute, uncomplicated illness or injury Data: Unique test(s) ordered: 1 Risk: Moderate: Moderate risk from testing/treatment Medical Decision Making Level: 3 - Low Marzena Barros MD [facility] 01-02-2025 Telephone encounter Note Patient called in to the office. An appointment given to discuss HSG. Georgia Franks RN [facility] 01-02-2025 Miscellaneous Notes Patient called in to the office. An appointment given to discuss HSG. Georgia Franks RN She needs an appointment. With a tubal reversal there is a higher chance of scar tissue involving her tubes. She should have an HSG before starting medications. Does she need to see infertility provider or one of physicians here? Angelica Duff RN documented in this encounter [facility] 01-02-2025 Telephone encounter Note She needs an appointment. With a tubal reversal there is a higher chance of scar tissue involving her tubes. She should have an HSG before starting medications. [facility] 01-01-2025 Telephone encounter Note Does she need to see infertility provider or one of physicians here? Angelica Duff RN [facility] 11-13-2024 Instructions Antionette Christensen MA - 11/13/2024 3:36 PM EDT YOUR RECOVERY It may take a few weeks for your cervix to heal. While your cervix heals, you may have: - Vaginal bleeding (less than a normal menstrual period) - Mild cramping - A brown-black vaginal discharge (similar to coffee grounds) which is a result of the paste used to help stop bleeding from the procedure Do NOT put anything in the vagina for 1 week after your colposcopy if your doctor does a biopsy of your cervix. This includes sex, tampons, and douches. If you have any discomfort, you may take an over the counter pain medication (motrin, advil, ibuprofen, tylenol, etc). If this does not relieve your discomfort, contact your doctor's office for a prescription strength pain medication. It is okay to wear a sanitary pad until the discharge and spotting stops. RISKS Although problems seldom occur with colposcopy, there can be some complications. You may feel faint during and shortly after the procedure as well as have some bleeding and vaginal discharge after the procedure. There is also a risk of infection after the procedure. These complications are rare and can be easily treated. You should contact you doctor is you have any of the following: - Heavy bleeding (more than your normal period) - Bleeding with clots - Severe abdominal pain - Fever (more than 100.4F) - Foul smelling vaginal discharge RESULTS If a biopsy was taken, we will have the results of your biopsy in 1-2 weeks. If you do not hear the results of your biopsy after 2 weeks, please contact your physicians office for the results. Depending on the biopsy results, your doctor will determine your follow up plan which may include further testing or treatments. STAYING HEALTHY After the procedure, you will need to see your doctor for follow up visits during the year. At these visits your doctor will check the health of your cervix with a pap smear. After three normal pap smears, your doctor will allow you to return to having exams once a year. If you have another abnormal pap smear, you may need closer follow up for longer or you may need additional treatment. By making a few lifestyle changes after the procedure, you can help protect the health of your cervix: - Have regular pelvic exams and pap smears as ordered by your doctor. - Stop smoking as smoking increases your risk of developing a cancer of the cervix - If you have more than one sexual partner, limit your number of partners and use condoms to reduce your risks of STDs. If you have any additional questions, please contact your doctor's office. documented in this encounter [facility] 11-13-2024 Note HNO ID: [id number] Author: GEORGIA GUNTER MD Service: ? Author Type: Physician Type: Progress Notes Filed: 11/13/2024 16:46 Note Text: Pump Technician offered: Patient declines. Shwetha is a 39 year old Female who presents today for a colposcopy. The patient's last pap smear was Positive HPV from September 2024. Patient has a history of abnormal pap: Yes. The patient has had prior treatment: none. test: negative UNIVERSAL PROTOCOL / SAFETY CHECKLIST Procedure to be Performed: Colposcopy with possible biopsies Sign In: A Moment of CARE was completed. Appropriate PPE (Personal Protective Equipment) worn by all providers involved with the procedure. Special equipment not required. Patient/Surrogate Stated/Verified: Patient name, Date of , Relevant allergies, and The intended procedure Time Out: Relevant labs, photos, and/or imaging studies have been reviewed. Intended patient and procedure match the source document(s) (e.g. consent, HANDP, associated studies [imaging, pathology]) match the intended patient and procedure. Consent obtained and matches the intended procedure. Yes. Correct side/site is not applicable. Medications required for this procedure are verified. Fire risk assessed and is not applicable. Implants: are not applicable. Sign Out: Specimens are all correctly labeled and sent. All instruments, equipment, possible retained foreign bodies are accounted for. Yes. The post-procedure plan of care has been communicated to the patient or surrogate. PROCEDURE: EXTERNAL GENITALIA: Normal in appearance without lesions VAGINA: Normal in appearance without lesions CERVIX: Speculum placed in vagina and excellent visualization of cervix achieved. Cervix swabbed x 3 with 3% acetic acid solution. Cervix grossly normal. Squamocolumnar junction visualized. No acetowhite changes, punctations, mosaicism or atypical vasculature noted. BIOPSY: Not done. ECC: not done HEMOSTASIS: Obtained with n/a Procedure Summary: Patient tolerated procedure well and colposcopy was adequate. ASSESSMENT: HPV effect PLAN: Repeat pap in 12 months Georgia Gunter MD [facility] 11-13-2024 History of Present illness Narrative Pump Technician offered: Patient declines. Shwetha is a 39 year old Female who presents today for a colposcopy. The patient's last pap smear was Positive HPV from September 2024. Patient has a history of abnormal pap: Yes. The patient has had prior treatment: none. test: negative UNIVERSAL PROTOCOL / SAFETY CHECKLIST Procedure to be Performed: Colposcopy with possible biopsies Sign In: A Moment of CARE was completed. Appropriate PPE (Personal Protective Equipment) worn by all providers involved with the procedure. Special equipment not required. Patient/Surrogate Stated/Verified: Patient name, Date of , Relevant allergies, and The intended procedure Time Out: Relevant labs, photos, and/or imaging studies have been reviewed. Intended patient and procedure match the source document(s) (e.g. consent, H&P, associated studies [imaging, pathology]) match the intended patient and procedure. Consent obtained and matches the intended procedure. Yes. Correct side/site is not applicable. Medications required for this procedure are verified. Fire risk assessed and is not applicable. Implants: are not applicable. Sign Out: Specimens are all correctly labeled and sent. All instruments, equipment, possible retained foreign bodies are accounted for. Yes. The post-procedure plan of care has been communicated to the patient or surrogate. PROCEDURE: EXTERNAL GENITALIA: Normal in appearance without lesions VAGINA: Normal in appearance without lesions CERVIX: Speculum placed in vagina and excellent visualization of cervix achieved. Cervix swabbed x 3 with 3% acetic acid solution. Cervix grossly normal. Squamocolumnar junction visualized. No acetowhite changes, punctations, mosaicism or atypical vasculature noted. BIOPSY: Not done. ECC: not done HEMOSTASIS: Obtained with n/a Procedure Summary: Patient tolerated procedure well and colposcopy was adequate. ASSESSMENT: HPV effect PLAN: Repeat pap in 12 months Georgia Gunter MD documented in this encounter [facility] 11-13-2024 Telephone encounter Note Please let the pt know that the test is negative and she does not need to do any other labs. Sherly Bynum APRN.CNP [facility] 11-13-2024 Miscellaneous Notes Please let the pt know that the test is negative and she does not need to do any other labs. Sherly Bynum APRN.HOME MISSION WORKER documented in this encounter [facility] 11-12-2024 Telephone encounter Note Patient notified and lab appt already scheduled. Angelica Duff RN [facility] 11-12-2024 Miscellaneous Notes Patient notified and lab appt already scheduled. Angelica Duff RN Left message for patient to call office. Per Pt's medical Hx- Pt had LAPAROSCOPIC TUBAL LIGATION/RING/CLIP in 2007. Rosalina Coleman RN Sherly Bynum APRN.CNP 11/12/24 7:45 AM Please let the pt know that the test is positive, but barely I would like her to repeat the lab today and Tuesday to ensure the levels are increasing. Sherly Bynum APRN.CNP documented in this encounter [facility] 11-12-2024 Telephone encounter Note Left message for patient to call office. Per Pt's medical Hx- Pt had LAPAROSCOPIC TUBAL LIGATION/RING/CLIP in 2007. Rosalina Coleman RN [facility] 11-12-2024 Telephone encounter Note Sherly Bynum APRN.CNP 11/12/24 7:45 AM Please let the pt know that the test is positive, but barely I would like her to repeat the lab today and Tuesday to ensure the levels are increasing. Sherly Bynum APRN.CNP [facility] 11-12-2024 Telephone encounter Note Please let the pt know that the test is positive, but barely I would like her to repeat the lab today and day to ensure the levels are increasing. Sherly Bynum APRN.CNP [facility] 11-12-2024 Miscellaneous Notes Please let the pt know that the test is positive, but barely I would like her to repeat the lab today and Tuesday to ensure the levels are increasing. Sherly Aspen, LEAD GENERATION MARKETING MANAGER.HOME MISSION WORKER documented in this encounter [facility] 10-30-2024 Telephone encounter Note Patient notified. Appointment scheduled. Georgia Franks RN [facility] 10-30-2024 Miscellaneous Notes Patient notified. Appointment scheduled. Georgia Franks RN Left message to call office. Ivy Soler RN Pap normal- HPV+16. She will need a colp. Sherly Bynum APRN.VIKTOR documented in this encounter [facility] 10-30-2024 Telephone encounter Note Left message to call office. Ivy Soler RN [facility] 10-30-2024 Telephone encounter Note Pap normal- HPV+16. She will need a colp. Sherly Bynum APRN.VIKTOR [facility] 10-22-2024 Note HNO ID: [id number] Author: SHERLY BYNUM APRN.CNP Service: ? Author Type: Nurse Practitioner Type: Progress Notes Filed: 10/22/2024 07:53 Note Text: Shwetha is a 39 year old who presents for an annual gynecologic exam without complaints. Tubal reversal in Jun 2024- activity trying for Still get period: Yes cycle 23 days lasting 4 Bleeding amount bothersome: No Bleeding between periods: No control frequency: Never HPV vaccine: No; HPV: possibly 2 years ago - normal per patient Last pap smear: possibly 2 years ago - normal per patient History of abnormal pap: Yes, history of abnormal PAP smears Bothersome pelvic pain: No Last mammogram: never OB History Gravida2 Para2 Term2 Preterm0 AB0 Living2 SAB0 IAB0 Ectopic0 Multiple0 Live Births2 Shiftman History LMP: 10/09/2024 (Exact Date), Having periods Age at Menarche: Age at First : Age at Menopause: Shiftman History Comments: Sexual Activity: Yes; Male Contraception: None Menstrual Tracking History Flowsheet Row Office Visit from 10/22/2024 in OB/Gynecology Period Cycle (Days) 23 Period Duration (Days) 4 Menstrual Flow Moderate PAST MEDICAL HISTORY Diagnosis Date Infertility, female Migraines PAST SURGICAL HISTORY Procedure Laterality Date DELIVERY ONLY 2004 SECTION HX 2008 COLPOSCOPY CERVIX VAG LOOP ELTRD BX CERVIX LAPAROSCOPIC TUBAL LIGATION/RING/CLIP 2007 FAMILY HISTORY Problem Relation Age of Onset Breast Cancer Maternal Grandmother SOCIAL HISTORY Social History Tobacco Use Smoking status: Never Smokeless tobacco: Never Substance Use Topics Alcohol use: Not Currently Drug use: No REVIEW OF SYSTEMS Abdomen: No abdominal pain, nausea, vomiting, diarrhea, or constipation. No bloating, early satiety, indigestion, or increased flatulence. Bladder: No dysuria, gross hematuria, urinary frequency, urinary urgency, or incontinence. Breast: No breast lumps, nipple d/c, overlying skin changes, redness or skin retraction. Allergies and current medication updated:Yes SENSITIVE EXAM: The sensitive examination was discussed with the Patient or Patient's Authorized Automobile Mechanic Motor. As applicable, any other physician, advance practice provider, medical student, or other health professional student that will be observing or involved in the sensitive examination for educational or training purposes was discussed with the Patient or Authorized Automobile Mechanic Motor. The Patient or Authorized Automobile Mechanic Motor has agreed to proceed with the sensitive examination. (Sensitive examination includes inspection and/or palpation of the breasts, pelvis, prostate and anorectal regions). EXAM: BP 98/60 Ht 4' 11.5 (1.51m) Wt 98 lb (44.5kg) LMP 10/09/2024 BMI 19.47 kg/(m2). GENERAL: pleasant, female in no apparent distress HEENT: Normocephalic, atraumatic, mucus membranes moist, and no lesions DERMATOLOGY: Normal, without lesions, non-icteric, and non-hirsute BREAST: soft, non-tender, symmetric, no dominant mass, normal nipple-areolar complex, no lymphadenopathy, and no nipple discharge CHEST: Normal inspiratory effort ABDOMEN: soft, non-tender, and no masses PELVIC: external genitalia normal, normal Bartholin's glands, urethra, Schneider's glands, no vulvar lesions, no cervical lesions, good vaginal support, physiologic discharge present, normal appearing perineal body and perianal region BIMANUAL: uterus normal size, shape and consistency, no adnexal masses, and non-tender RECTOVAGINAL: deferred. NEURO: alert and oriented x3,exam grossly non-focal EXTREMITIES: normal ASSESSMENT/PLAN: 1) Health maintenance: Pap done with HPV. Mammogram starting age 40. Nutrition, exercise and routine health maintenance exams reviewed. Calcium/Vitamin D supplementation information provided. Colon cancer screening: start at age 45 2) Contraception: none. Contraceptive options reviewed and information provided. 3) STD screening: Declined STD check. 4) Follow up one year or sooner as needed Sherly Bynum APRN.[facility] 10-22-2024 History of Present illness Narrative Shwetha is a 39 year old who presents for an annual gynecologic exam without complaints. Tubal reversal in Jun 2024- activity trying for Still get period: Yes cycle 23 days lasting 4 Bleeding amount bothersome: No Bleeding between periods: No control frequency: Never HPV vaccine: No; HPV: possibly 2 years ago - normal per patient Last pap smear: possibly 2 years ago - normal per patient History of abnormal pap: Yes, history of abnormal PAP smears Bothersome pelvic pain: No Last mammogram: never OB History Gravida2 Para2 Term2 Preterm0 AB0 Living2 SAB0 IAB0 Ectopic0 Multiple0 Live Births2 Shiftman History LMP: 10/09/2024 (Exact Date), Having periods Age at Menarche: Age at First : Age at Menopause: Shiftman History Comments: Sexual Activity: Yes; Male Contraception: None Menstrual Tracking History Flowsheet Row Office Visit from 10/22/2024 in OB/Gynecology Period Cycle (Days) 23 Period Duration (Days) 4 Menstrual Flow Moderate PAST MEDICAL HISTORY Diagnosis Date Infertility, female Migraines PAST SURGICAL HISTORY Procedure Laterality Date DELIVERY ONLY 2005 SECTION HX 2008 COLPOSCOPY CERVIX VAG LOOP ELTRD BX CERVIX LAPAROSCOPIC TUBAL LIGATION/RING/CLIP 2008 FAMILY HISTORY Problem Relation Age of Onset Breast Cancer Maternal Grandmother SOCIAL HISTORY Social History Tobacco Use Smoking status: Never Smokeless tobacco: Never Substance Use Topics Alcohol use: Not Currently Drug use: No REVIEW OF SYSTEMS Abdomen: No abdominal pain, nausea, vomiting, diarrhea, or constipation. No bloating, early satiety, indigestion, or increased flatulence. Bladder: No dysuria, gross hematuria, urinary frequency, urinary urgency, or incontinence. Breast: No breast lumps, nipple d/c, overlying skin changes, redness or skin retraction. Allergies and current medication updated:Yes SENSITIVE EXAM: The sensitive examination was discussed with the Patient or Patient's Authorized Automobile Mechanic Motor. As applicable, any other physician, advance practice provider, medical student, or other health professional student that will be observing or involved in the sensitive examination for educational or training purposes was discussed with the Patient or Authorized Automobile Mechanic Motor. The Patient or Authorized Automobile Mechanic Motor has agreed to proceed with the sensitive examination. (Sensitive examination includes inspection and/or palpation of the breasts, pelvis, prostate and anorectal regions). EXAM: BP 98/60 Ht 4' 11.5 (1.51m) Wt 98 lb (44.5kg) LMP 10/09/2024 BMI 19.47 kg/(m^2). GENERAL: pleasant, female in no apparent distress HEENT: Normocephalic, atraumatic, mucus membranes moist, and no lesions DERMATOLOGY: Normal, without lesions, non-icteric, and non-hirsute BREAST: soft, non-tender, symmetric, no dominant mass, normal nipple-areolar complex, no lymphadenopathy, and no nipple discharge CHEST: Normal inspiratory effort ABDOMEN: soft, non-tender, and no masses PELVIC: external genitalia normal, normal Bartholin's glands, urethra, Schneider's glands, no vulvar lesions, no cervical lesions, good vaginal support, physiologic discharge present, normal appearing perineal body and perianal region BIMANUAL: uterus normal size, shape and consistency, no adnexal masses, and non-tender RECTOVAGINAL: deferred. NEURO: alert and oriented x3,exam grossly non-focal EXTREMITIES: normal ASSESSMENT/PLAN: 1) Health maintenance: Pap done with HPV. Mammogram starting age 40. Nutrition, exercise and routine health maintenance exams reviewed. Calcium/Vitamin D supplementation information provided. Colon cancer screening: start at age 45 2) Contraception: none. Contraceptive options reviewed and information provided. 3) STD screening: Declined STD check. 4) Follow up one year or sooner as needed Sherly Bynum APRN.HOME MISSION WORKER documented in this encounter [facility] 05-22-2023 Hospital Discharge instructions Patient Education 05/22/2023 11:37:22 Back Care Tips Back Care Tips Caring for your back These are things you can do to prevent a recurrence of acute back pain and to reduce symptoms from chronic back pain: Maintain a healthy weight. If you are overweight, losing weight will help most types of back pain. Exercise is an important part of recovery from most types of back pain. The muscles behind and in front of the spine support the back. This means strengthening both the back muscles and the abdominal muscles will provide better support for your spine. Swimming and brisk walking are good overall exercises to improve your fitness level. Practice safe lifting methods (below). Practice good posture when sitting, standing and walking. Avoid prolonged sitting. This puts more stress on the lower back than standing or walking. Wear quality shoes with sufficient arch support. Foot and ankle alignment can affect back symptoms. Women should avoid wearing high heels. Therapeutic massage can help relax the back muscles without stretching them. During the first 24 to 72 hours after an acute injury or flare-up of chronic back pain, apply an ice pack to the painful area for 20 minutes and then remove it for 20 minutes, over a period of 60 to 90 minutes, or several times a day. As a safety precaution, do not use a heating pad at bedtime. Sleeping on a heating pad can lead to skin richardson or tissue damage. You can alternate ice and heat therapies. Medicines Talk to your healthcare provider before using medicines, especially if you have other medical problems or are taking other medicines. You may use acetaminophen or ibuprofen to control pain, unless your healthcare provider prescribed other pain medicine. If you have chronic conditions like diabetes, liver or kidney disease, stomach ulcers, or gastrointestinal bleeding, or are taking blood thinners, talk with your healthcare provider before taking any medicines. Be careful if you are given prescription pain medicines, narcotics, or medicine for muscle spasm. They can cause drowsiness, affect your coordination, reflexes, and judgment. Do not drive or operate heavy machinery while taking these types of medicines. Take prescription pain medicine only as prescribed by your healthcare provider. Lumbar stretch Here is a simple stretching exercise that will help relax muscle spasm and keep your back more limber. If exercise makes your back pain worse, don t do it. Lie on your back with your knees bent and both feet on the ground. Slowly raise your left knee to your chest as you flatten your lower back against the floor. Hold for 5 seconds. Relax and repeat the exercise with your right knee. Do 10 of these exercises for each leg. Safe lifting method Don t bend over at the waist to lift an object off the floor. Instead, bend your knees and hips in a squat. Keep your back and head upright Hold the object close to your body, directly in front of you. Straighten your legs to lift the object. Lower the object to the floor in the reverse fashion. If you must slide something across the floor, push it. Posture tips Sitting Sit in chairs with straight backs or low-back support. Keep your knees lower than your hips, with your feet flat on the floor. When driving, sit up straight. Adjust the seat forward so you are not leaning toward the steering wheel. A small pillow or rolled towel behind your lower back may help if you are driving long distances. Standing When standing for long periods, shift most of your weight to one leg at a time. Alternate legs every few minutes. Sleeping The best way to sleep is on your side with your knees bent. Put a low pillow under your head to support your neck in a neutral spine position. Avoid thick pillows that bend your neck to one side. Put a pillow between your legs to further relax your lower back. If you sleep on your back, put pillows under your knees to support your legs in a slightly flexed position. Use a firm mattress. If your mattress sags, replace it, or use a 1/2-inch plywood board under the mattress to add support. Follow-up care Follow up with your healthcare provider, or as advised. If X-rays, a CT scan or an MRI scan were taken, they will be reviewed by a radiologist. You will be notified of any new findings that may affect your care. Call 911 Call 911 if any of the following occur: Trouble breathing Confusion Very drowsy Fainting or loss of consciousness Rapid or very slow heart rate Loss of bowel or bladder control When to seek medical advice Call your healthcare provider right away if any of the following occur: Pain becomes worse or spreads to your arms or legs Weakness or numbness in one or both arms or legs Numbness in the groin area [id number] [employer] [address] [place] [id number]. All rights reserved. This information is not intended as a substitute for professional medical care. Always follow your healthcare professional's instructions. Follow Up Care 05/22/2023 11:21:44 With:Follow up with primary care provider Address:Unknown When:2-4 days [facility] 05-22-2023 Note Discharge Instructions Thank you for allowing [facility] to assist you with your healthcare needs. The following is important discharge information regarding your hospital visit. Diagnosis from Today's Visit Back pain Back pain What to Do Next Instructions from Your Care Team Discharge Return to Work, School, or Sports (Return to Work, School, or Sports) - Ordered -- May return to: work, please excuse 05/22/23, 05/22/23 11:37:00 EDT Post Acute Orders No qualifying data available. You Need to Schedule the Following Appointments Follow Up with Follow up with primary care provider When Within 2-4 days Allergies Tape Medications Please ask your primary doctor or pharmacist before taking any other medication not listed, including over the counter drugs, herbal medications, vitamins and or supplements as they may interact with your home medications. What How Much When Instructions Last Dose New cyclobenzaprine (cyclobenzaprine 10 mg oral tablet) 1 tab(s) by mouth Three (3) times a day Duration: 5 Days Printed Prescription New naproxen (naproxen 250 mg oral tablet) 1 tab(s) by mouth Two (2) times a day Duration: 5 Days Printed Prescription Please take this list to your next doctor s visit. Bring all medications you take, including over the counter medications, herbals and other supplements with you to your doctor s visit. Patients and families are reminded to discard old lists and to update any records with all medication providers or retail pharmacies. Medication Leaflets naproxen (na PROX en) Aleve, Aleve Back and Muscle Pain, Aleve Easy Open Arthritis, Aleve Liquid Gels, Anaprox-DS, EC-Naprosyn, Naprelan, Naprosyn What is the most important information I should know about naproxen? Naproxen can increase your risk of fatal heart attack or stroke. Do not use this medicine just before or after heart bypass surgery (coronary artery bypass graft, or CABG). Naproxen may also cause stomach or intestinal bleeding, which can be fatal. What is naproxen? Naproxen is a nonsteroidal anti-inflammatory drug (NSAID). Naproxen is used to treat pain or inflammation caused by conditions such as arthritis, ankylosing spondylitis, tendinitis, bursitis, gout, or menstrual cramps. The delayed-release or extended-release tablets are slower-acting forms of naproxen that are used only for treating chronic conditions such as arthritis or ankylosing spondylitis. These forms of naproxen will not work fast enough to treat acute pain. Naproxen may also be used for purposes not listed in this medication guide. What should I discuss with my healthcare provider before taking naproxen? Naproxen can increase your risk of fatal heart attack or stroke, even if you don't have any risk factors. Do not use this medicine just before or after heart bypass surgery (coronary artery bypass graft, or CABG). Naproxen may also cause stomach or intestinal bleeding, which can be fatal. These conditions can occur without warning while you are using naproxen, especially in older adults. You should not use naproxen if you are allergic to it, or if you have ever had an asthma attack or severe allergic reaction after taking aspirin or an NSAID. Ask a doctor before giving naproxen to a child younger than 12 years old. Ask a doctor or pharmacist if this medicine is safe to use if you have: heart disease, high blood pressure, high cholesterol, diabetes, or if you smoke; a heart attack, stroke, or blood clot; stomach ulcers or bleeding; asthma; liver or kidney disease; fluid retention; or if you take aspirin to prevent heart attack or stroke. If you are , you should not take naproxen unless your doctor tells you to. Taking an NSAID during the last 20 weeks of can cause serious heart or kidney problems in the unborn baby and possible complications with your . It may not be safe to breastfeed while using this medicine. Ask your doctor about any risk. How should I take naproxen? Use exactly as directed on the label, or as prescribed by your doctor. Use the lowest dose that is effective in treating your condition. Shake the oral suspension (liquid) before you measure a dose. Measure a dose with the supplied measuring device (not a kitchen spoon). Take this medicine with food or milk if it upsets your stomach. Always follow directions on the medicine label about giving this medicine to a child. Naproxen doses are based on weight in children. Your child's dose needs may change if the child gains or loses weight. If you use naproxen long-term, you may need frequent medical tests. This medicine can affect the results of certain medical tests. Tell any doctor who treats you that you are using naproxen. Store at room temperature away from moisture, heat, and light. Keep the bottle tightly closed when not in use. What happens if I miss a dose? Since naproxen is used when needed, you may not be on a dosing schedule. Skip any missed dose if it's almost time for your next dose. Do not use two doses at one time. What happens if I overdose? Seek emergency medical attention or call the Poison Help line at . What should I avoid while taking naproxen? Avoid drinking alcohol. It may increase your risk of stomach bleeding. Avoid taking aspirin or other NSAIDs unless your doctor tells you to. Ask a doctor or pharmacist before using other medicines for pain, fever, swelling, or cold/flu symptoms. They may contain ingredients similar to naproxen (such as aspirin, ibuprofen, or ketoprofen). Ask your doctor before using an antacid, and use only the type your doctor recommends. Some antacids can make it harder for your body to absorb naproxen. What are the possible side effects of naproxen? Get emergency medical help if you have signs of an allergic reaction (runny or stuffy nose, wheezing or trouble breathing, hives, swelling in your face or throat) or a severe skin reaction (fever, sore throat, burning eyes, skin pain, red or purple skin rash with blistering and peeling). Stop using naproxen and seek medical treatment if you have a serious drug reaction that can affect many parts of your body. Symptoms may include skin rash, fever, swollen glands, muscle aches, severe weakness, unusual bruising, or yellowing of your skin or eyes. Get emergency medical help if you have signs of a heart attack or stroke: chest pain spreading to your jaw or shoulder, sudden numbness or weakness on one side of the body, slurred speech, leg swelling, feeling short of breath. Stop using naproxen and call your doctor at once if you have: shortness of breath (even with mild exertion); swelling or rapid weight gain; the first sign of any skin rash or blister, no matter how mild; signs of stomach bleeding--bloody or tarry stools, coughing up blood or vomit that looks like coffee grounds; liver problems--nausea, upper stomach pain, loss of appetite, dark urine, dianne-colored stools, jaundice (yellowing of the skin or eyes); kidney problems--little or no urination, painful urination, swelling in your feet or ankles; or low red blood cells (anemia)--pale skin, unusual tiredness, feeling light-headed or short of breath, cold hands and feet. Common side effects may include: headache; indigestion, heartburn, stomach pain; or flu symptoms; This is not a complete list of side effects and others may occur. Call your doctor for medical advice about side effects. You may report side effects to FDA at 2-353-GON-9056. What other drugs will affect naproxen? Ask your doctor before using naproxen if you take an antidepressant. Taking certain antidepressants with an NSAID may cause you to bruise or bleed easily. Ask a doctor or pharmacist before using naproxen with any other medications, especially: other NSAIDs or salicylates (diflunisal, salsalate); antacids and sucralfate; cholestyramine; cyclosporine; digoxin; lithium; methotrexate; pemetrexed; probenecid; warfarin (Coumadin, Jantoven) or similar blood thinners; a diuretic or 'water pill'; or heart or blood pressure medication. This list is not complete. Other drugs may affect naproxen, including prescription and pjgd-rck-unelpft medicines, vitamins, and herbal products. Not all possible drug interactions are listed here. Where can I get more information? Your pharmacist can provide more information about naproxen. Remember, keep this and all other medicines out of the reach of children, never share your medicines with others, and use this medication only for the indication prescribed. Every effort has been made to ensure that the information provided by [employer]') is accurate, up-to-date, and complete, but no guarantee is made to that effect. Drug information contained herein may be time sensitive. [employer] information has been compiled for use by healthcare practitioners and consumers in the [place] and therefore [employer] does not warrant that uses outside of the [place] are appropriate, unless specifically indicated otherwise. [employer]s drug information does not endorse drugs, diagnose patients or recommend therapy. [employer] drug information is an informational resource designed to assist licensed healthcare practitioners in caring for their patients and/or to serve consumers viewing this service as a supplement to, and not a substitute for, the expertise, skill, knowledge and judgment of healthcare practitioners. The absence of a warning for a given drug or drug combination in no way should be construed to indicate that the drug or drug combination is safe, effective or appropriate for any given patient. [employer] does not assume any responsibility for any aspect of healthcare administered with the aid of information [employer] provides. The information contained herein is not intended to cover all possible uses, directions, precautions, warnings, drug interactions, allergic reactions, or adverse effects. If you have questions about the drugs you are taking, check with your doctor, nurse or pharmacist. Copyright 0520-2065 [employer]. Version: 22.. Revision Date: 03/31/2023. cyclobenzaprine (nelida wolff) Luli, Colleenxsharla What is the most important information I should know about cyclobenzaprine? You should not use cyclobenzaprine if you have a thyroid disorder, heart block, congestive heart failure, a heart rhythm disorder, or you have recently had a heart attack. Do not use cyclobenzaprine if you have taken an MAO inhibitor in the past 14 days, such as isocarboxazid, linezolid, phenelzine, rasagiline, selegiline, or tranylcypromine. What is cyclobenzaprine? Cyclobenzaprine is a muscle relaxant. It works by blocking nerve impulses (or pain sensations) that are sent to your brain. Cyclobenzaprine is used together with rest and physical therapy to relieve muscle spasms caused by painful conditions such as an injury. Cyclobenzaprine may also be used for purposes not listed in this medication guide. What should I discuss with my healthcare provider before taking cyclobenzaprine? You should not use cyclobenzaprine if you are allergic to it, or if you have: a thyroid disorder; heart block, heart rhythm disorder, congestive heart failure; or if you have recently had a heart attack. Cyclobenzaprine is not approved for use by anyone younger than 15 years old. Do not use cyclobenzaprine if you have taken an MAO inhibitor in the past 14 days. A dangerous drug interaction could occur. MAO inhibitors include isocarboxazid, linezolid, phenelzine, rasagiline, selegiline, and tranylcypromine. Some medicines can interact with cyclobenzaprine and cause a serious condition called serotonin syndrome. Be sure your doctor knows if you also take stimulant medicine, opioid medicine, herbal products, or medicine for depression, mental illness, Parkinson's disease, migraine headaches, serious infections, or prevention of nausea and vomiting. Ask your doctor before making any changes in how or when you take your medications. Tell your doctor if you have ever had: liver disease; glaucoma; enlarged prostate; or problems with urination. It is not known whether this medicine will harm an unborn baby. Tell your doctor if you are or plan to become . It may not be safe to breast-feed while using this medicine. Ask your doctor about any risk. Older adults may be more sensitive to the effects of this medicine. How should I take cyclobenzaprine? Follow all directions on your prescription label and read all medication guides or instruction sheets. Your doctor may occasionally change your dose. Use the medicine exactly as directed. Cyclobenzaprine is usually taken once daily for only 2 or 3 weeks. Follow your doctor's dosing instructions very carefully. Swallow the capsule whole and do not crush, chew, break, or open it. Take the medicine at the same time each day. Call your doctor if your symptoms do not improve after 3 weeks, or if they get worse. Store at room temperature away from moisture, heat, and light. What happens if I miss a dose? Take the medicine as soon as you can, but skip the missed dose if it is almost time for your next dose. Do not take two doses at one time. What happens if I overdose? Seek emergency medical attention or call the Poison Help line at . An overdose of cyclobenzaprine can be fatal. Overdose symptoms may include severe drowsiness, vomiting, fast heartbeats, tremors, agitation, or hallucinations. What should I avoid while taking cyclobenzaprine? Avoid driving or hazardous activity until you know how this medicine will affect you. Your reactions could be impaired. Avoid drinking alcohol. Dangerous side effects could occur. What are the possible side effects of cyclobenzaprine? Get emergency medical help if you have signs of an allergic reaction: hives; difficult breathing; swelling of your face, lips, tongue, or throat. Stop using cyclobenzaprine and call your doctor at once if you have: fast or irregular heartbeats; chest pain or pressure, pain spreading to your jaw or shoulder; or sudden numbness or weakness (especially on one side of the body), slurred speech, balance problems. Seek medical attention right away if you have symptoms of serotonin syndrome, such as: agitation, hallucinations, fever, sweating, shivering, fast heart rate, muscle stiffness, twitching, loss of coordination, nausea, vomiting, or diarrhea. Serious side effects may be more likely in older adults. Common side effects may include: drowsiness, tiredness; headache, dizziness; dry mouth; or upset stomach, nausea, constipation. This is not a complete list of side effects and others may occur. Call your doctor for medical advice about side effects. You may report side effects to FDA at 3-398-UPD-4875. What other drugs will affect cyclobenzaprine? Using cyclobenzaprine with other drugs that make you drowsy can worsen this effect. Ask your doctor before using opioid medication, a sleeping pill, a muscle relaxer, or medicine for anxiety or seizures. Tell your doctor about all your other medicines, especially: bupropion (Zyban, for smoking cessation); meperidine; tramadol; verapamil; cold or allergy medicine that contains an antihistamine (Benadryl and others); medicine to treat Parkinson's disease; medicine to treat excess stomach acid, stomach ulcer, motion sickness, or irritable bowel syndrome; medicine to treat overactive bladder; or bronchodilator asthma medication. This list is not complete. Other drugs may affect cyclobenzaprine, including prescription and agjf-jnq-avvqyoy medicines, vitamins, and herbal products. Not all possible drug interactions are listed here. Where can I get more information? Your pharmacist can provide more information about cyclobenzaprine. Remember, keep this and all other medicines out of the reach of children, never share your medicines with others, and use this medication only for the indication prescribed. Every effort has been made to ensure that the information provided by [employer]') is accurate, up-to-date, and complete, but no guarantee is made to that effect. Drug information contained herein may be time sensitive. [employer] information has been compiled for use by healthcare practitioners and consumers in the [place] and therefore [employer] does not warrant that uses outside of the [place] are appropriate, unless specifically indicated otherwise. [employer]s drug information does not endorse drugs, diagnose patients or recommend therapy. [employer] drug information is an informational resource designed to assist licensed healthcare practitioners in caring for their patients and/or to serve consumers viewing this service as a supplement to, and not a substitute for, the expertise, skill, knowledge and judgment of healthcare practitioners. The absence of a warning for a given drug or drug combination in no way should be construed to indicate that the drug or drug combination is safe, effective or appropriate for any given patient. [employer] does not assume any responsibility for any aspect of healthcare administered with the aid of information [employer] provides. The information contained herein is not intended to cover all possible uses, directions, precautions, warnings, drug interactions, allergic reactions, or adverse effects. If you have questions about the drugs you are taking, check with your doctor, nurse or pharmacist. Copyright 5139-6911 [employer]. Version: 7.01. Revision Date: 04/01/2023. Education Materials Back Care Tips Caring for your back These are things you can do to prevent a recurrence of acute back pain and to reduce symptoms from chronic back pain: Maintain a healthy weight. If you are overweight, losing weight will help most types of back pain. Exercise is an important part of recovery from most types of back pain. The muscles behind and in front of the spine support the back. This means strengthening both the back muscles and the abdominal muscles will provide better support for your spine. Swimming and brisk walking are good overall exercises to improve your fitness level. Practice safe lifting methods (below). Practice good posture when sitting, standing and walking. Avoid prolonged sitting. This puts more stress on the lower back than standing or walking. Wear quality shoes with sufficient arch support. Foot and ankle alignment can affect back symptoms. Women should avoid wearing high heels. Therapeutic massage can help relax the back muscles without stretching them. During the first 24 to 72 hours after an acute injury or flare-up of chronic back pain, apply an ice pack to the painful area for 20 minutes and then remove it for 20 minutes, over a period of 60 to 90 minutes, or several times a day. As a safety precaution, do not use a heating pad at bedtime. Sleeping on a heating pad can lead to skin richardson or tissue damage. You can alternate ice and heat therapies. Medicines Talk to your healthcare provider before using medicines, especially if you have other medical problems or are taking other medicines. You may use acetaminophen or ibuprofen to control pain, unless your healthcare provider prescribed other pain medicine. If you have chronic conditions like diabetes, liver or kidney disease, stomach ulcers, or gastrointestinal bleeding, or are taking blood thinners, talk with your healthcare provider before taking any medicines. Be careful if you are given prescription pain medicines, narcotics, or medicine for muscle spasm. They can cause drowsiness, affect your coordination, reflexes, and judgment. Do not drive or operate heavy machinery while taking these types of medicines. Take prescription pain medicine only as prescribed by your healthcare provider. Lumbar stretch Here is a simple stretching exercise that will help relax muscle spasm and keep your back more limber. If exercise makes your back pain worse, don t do it. Lie on your back with your knees bent and both feet on the ground. Slowly raise your left knee to your chest as you flatten your lower back against the floor. Hold for 5 seconds. Relax and repeat the exercise with your right knee. Do 10 of these exercises for each leg. Safe lifting method Don t bend over at the waist to lift an object off the floor. Instead, bend your knees and hips in a squat. Keep your back and head upright Hold the object close to your body, directly in front of you. Straighten your legs to lift the object. Lower the object to the floor in the reverse fashion. If you must slide something across the floor, push it. Posture tips Sitting Sit in chairs with straight backs or low-back support. Keep your knees lower than your hips, with your feet flat on the floor. When driving, sit up straight. Adjust the seat forward so you are not leaning toward the steering wheel. A small pillow or rolled towel behind your lower back may help if you are driving long distances. Standing When standing for long periods, shift most of your weight to one leg at a time. Alternate legs every few minutes. Sleeping The best way to sleep is on your side with your knees bent. Put a low pillow under your head to support your neck in a neutral spine position. Avoid thick pillows that bend your neck to one side. Put a pillow between your legs to further relax your lower back. If you sleep on your back, put pillows under your knees to support your legs in a slightly flexed position. Use a firm mattress. If your mattress sags, replace it, or use a 1/2-inch plywood board under the mattress to add support. Follow-up care Follow up with your healthcare provider, or as advised. If X-rays, a CT scan or an MRI scan were taken, they will be reviewed by a radiologist. You will be notified of any new findings that may affect your care. Call 911 Call 911 if any of the following occur: Trouble breathing Confusion Very drowsy Fainting or loss of consciousness Rapid or very slow heart rate Loss of bowel or bladder control When to seek medical advice Call your healthcare provider right away if any of the following occur: Pain becomes worse or spreads to your arms or legs Weakness or numbness in one or both arms or legs Numbness in the groin area [id number] [employer] [address] [place] [address]34. All rights reserved. This information is not intended as a substitute for professional medical care. Always follow your healthcare professional's instructions. Additional Information VACCINATE! IT SAVES LIVES! Members of the community who have not yet received the COVID-19 vaccine and would like to receive it can visit one of [facility] vaccine clinics. There are many vaccine clinic locations within the [facility]. For locations and available times, please visit www.gettheshot.coronavirus.[place].gov /. It is important to note that some COVID mobile vaccine clinics are held outdoors and may be canceled in rainy or stormy conditions. To learn more about pediatric vaccinations (ages 5-11), we invite you to visit the [facility] webpage. [email or web address]-Frequently -[email or web address]-Questions.html To learn more about the COVID-19 vaccine, we invite you to visit the CDC website for a list of frequently asked questions. https://www.cdc.gov/coronavirus/201 9-ncov/vaccines/faq.html [facility] Patient Portal Access Instructions: Stay connected with your healthcare team and access your personal medical information anytime with the [facility] Patient Portal. If you would like a full copy of your medical records please contact the [facility] Medical Records Department Tuesday through Tuesday between 8a.m. and 4:30p.m. Please follow the directions below to access the portal: 1.Access the email account you provided upon registration to the [facility].2.Look for an invitation email from [facility].3.Open the email and access the invitation link: Accept Invitation to [facility]4.Fill in the required ochoa to create your account. Sign into www.[employer] with your username and password that you created in the above steps to stay up to date. You can then view a summary of results, a summary of your visits, and the ability to download your summaries to your computer or send the information securely to a physician. Remember that your healthcare information is confidential, so carefully consider who you will allow to register on the [facility] Patient Portal for access to your information. You can also access the [facility] Patient Portal on the [employer]. Simply click on Health Records under Health Data and then click on the [facility] logo. HOW TO SAFELY DISPOSE OF PRESCRIPTION MEDICATIONS Please use one of the following methods to safely dispose of your unused medications. 1.Use a drug disposal kit: the drug disposal pouch allows you to safely discard your old and unused drugs. Ask your nurse to give you one when you are discharged.2.Visit a local take-back location: Many local pharmacies and police departments have programs that collect old and unwanted prescription drugs. Call your local pharmacy or go to http://TripsByTips.[employer]/1V1Su4m to find one close to you.3.Make use of household items: Use cat litter or old coffee grounds to dispose medications if other options are not available. Mix your drugs with these household products, seal them in an airtight container and throw it into the garbage. Call [facility]: [phone] to be sure your drugs can be disposed of in this way. Some medicines may require a different approach.4.Never flush your medications down the toilet. IF YOU HAVE BEEN PRESCRIBED AN OPIOIDS FOR PAIN If you have been prescribed an opioid (such as hydrocodone, oxycodone or morphine), it is critical to understand the possible side effects and risks of opioid pain medications. Even when taken as directed, opioids can have several side effects including: Tolerance, meaning you might need to take more of a medication for the same pain relief. Nausea, vomiting and/or constipation. Sleepiness, dizziness, dry mouth, confusion, depression or itching. Physical dependence, meaning you have withdrawal symptoms when a medication is stopped ? this can develop within a few days. KNOW YOUR RESPONSIBILITIES It is important to know exactly how much and how often to take the opioid pain medications you are prescribed. Never take opioids in higher amounts or more often than prescribed. Do not combine opioids with alcohol or other drugs that cause drowsiness, such as benzodiazepines, also known as benzos, including diazepam and alprazolam, muscle relaxants or sleep aids. Never sell or share prescription opioids. This is illegal. Store opioids in a secure place and out of reach of others (including children, family, friends and visitors). The last page(s) of this document has been signed and retained as a CHART COPY Signatures Patient Education Materials Back Care Tips Medication Leaflets naproxen, cyclobenzaprine My discharge plan and instructions have been reviewed and explained to me and I,SHWETHA STERN understand my current condition and have read and understand these discharge instructions. I have received a written copy of the plan/instructions. If I have questions, I am aware that I should contact my doctor. 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 Endocervical and/or squamous metaplasticcells (endocervical component) are present. Comment on above: Satisfactory for elvia luation. Endocervical and/or squamous metaplasticcells (endocervical component) are present. 01-27-2022 Note [facility] Work Phone: Pap Smear Specimen Adequacy January 27, 2022 10:30am Comment . Satisfactory for evaluation. Endocervical and/or squamous metaplasticcells (endocervical component) are present. Comment on above: Satisfactory for elvia luation. Endocervical and/or squamous metaplasticcells (endocervical component) are present. Discharge summary Note Date/Time December 17, 2023 10:31am [facility] Medical Records Department [address] [place] [address] Emergency Department Summary 12/17/23 MR#: [id number] Acct: [id number] Name: SHWETHA STERN Rep #:[id number] : 1985 38 From: Vignesh Rosa MD PCP: Dr. Ethan Frey MD Status:NC E ER Location: ED HPI History of Present Illness HPI Narrative: Left forearm dog bite less than an hour ago. Chief Complaint: Bite Informant: patient Occured/Mechanism Mechanism/Context: Yes injury Onset/Context/Timing Onset: Today Current Severity: Mild Maximum Severity: Mild Associated Symptoms Associated Symptoms: Negative for Parasthesia, Weakness or Loss of Funtion Narrative Narrative: 38-year-old female was going to grocery store she is on a second-level apartmentthat she was walking towards her car one of the neighbors dogs came up to her. It was initially fine and then she went to get away from the dog pulled away thedog bit her on her left forearm. She said there is also a minor scratch on her buttock. This occurred less than an hour ago. No other complaints. Prior similar symptoms: No Recent Illness/Hospitalization: No ROS ROS ED ROS Narrative Denies recent illness. Review of Systems ROS Unobtainable: Denies due to encephalopathy Constitutional Constitutional ED: Denies chills or fever(s) Eyes Eyes: Denies blurry vision ENT ENT ED: Denies ear pain Cardiovascular Cardiovascular: Denies chest pain Respiratory/Chest Respiratory/Chest: Denies cough or dyspnea Gastrointestinal Gastrointestinal: Denies abdominal pain Genitourinary Genitourinary ED: Denies dysuria or hematuria Musculoskeletal Musculoskeletal: Denies arthralgias Integumentary Denies abscess Neurologic Neurologic: Denies headache(s) Psychiatric Psychiatric: Denies anxiety Endocrine Endocrinology: Denies polydipsia or polyphagia Hematologic/Lymphatic Hematologic/Lymphatic: Denies easy bleeding or easy bruising Allergic/Immunologic Allergic/Immunologic ED: Denies mouth swelling, tongue swelling or urticaria PFSH PFS Medical History Hx of carbon monoxide poisoning Physical exam, pre-employment Home Medications NK 06/21/23 [History Last Taken Unknown] Allergy/AdvReac Type Severity Reaction Status Date / Time No Known Allergies Allergy Verified 12/17/23 10:13 Surgical History History of tubal ligation Social History Smoking Status: Never smoker alcohol intake: never EXAM Physical Exam Narrative Exam Narrative: Well-appearing 38-year-old female. Vital signs stable afebrile. HEENT exam unremarkable. Lungs clear. Heart regular rhythm. Abdomen soft nontender. Moving all 4 extremities. Neurovascular intact. Forearm palmar side midportionis about 1/2 inch dog bite. Small hematoma. No need for repair. No bleeding. No signs of infection. Left hand is neurovascularly intact with normal strength. Sensation and radial pulse. Otherwise exam unremarkable. Const Vital Signs: 12/17/23 10:12 Temperature 97.8 F Temperature Source Temporal Pulse Rate 73 Respiratory Rate 16 Blood Pressure 122/97 H Blood Pressure Mean 105 Pulse Ox 100 Oxygen Delivery Method Room Air Positive well nourished and well developed; Negative for obese, cachectic, contractures or unkempt General Appearance ED: well developed and NAD; Negative for unkempt, cachectic or contractures Nutritional Appearance: Negative for cachectic or obese HEENT Reports moist mucous membranes normocephalic and atraumatic; Negative for trauma or tenderness Eyes PERRL and EOMs intact bilaterally General Eye ED: Negative for other Neck full ROM and no lymphadenopathy General: Negative for tenderness Resp normal respiratory effort and clear to auscultation bilaterally Effort and Inspection: Negative for other Auscultation: Negative for rales, rhonchi or wheezes Cardio regular rate, regular rhythm, S1 normal heart sound, S2 normal heart sound and no murmurs Jugular Venous Distention: Negative for other Rate: Negative for bradycardia or tachycardic Rhythm: Negative for abnormal rhythm GI non-tender, non-distended and no masses Inspection: Negative for abdominal distention Auscultation: normoactive bowel sounds Palpation: soft; Negative for tender or guarding Bladder / Kidney Exam: No CVA tenderness Back/Spine no CVA tenderness General Back: Negative for CVA tenderness or other Cervical Spine: Negative for cervical spine tenderness Thoracic Spine / Upper Back: Negative for thoracic spinal tenderness Lumbar Spine / Lower Back: Negative for lumbar spinal tenderness Extremity normal to inspection and full ROM Extremity Narrative: Superficial dog bite mid left forearm palmar aspect. Small hematoma. No infection. No pus, redness, cellulitis or streaks. Left arm is neurovascularlyintact with full range of motion. General Extremety ED: Negative for deformity, edema or tenderness General Extremity: Negative for deformity or edema Neuro oriented x3, CN's II-XII intact bilaterally and no sensory deficits noted Sensorium / Orientation: alert, oriented to person, oriented to place and oriented to time; Negative for orientation impaired, confused, lethargic or stuporous Motor Exam: strength 5/5 throughout Psych mental status grossly normal and thought process normal Appearance: Negative for unkempt Attitude: No agitated Mood & Affect: Negative for anxious Skin skin turgor normal General Skin Exam: Negative for other Lesions: no lesions Rashes: no rashes Image ED - Upper Extremity Diagram: 1. Left forearm, palmar aspect small superficial dog bite with small hematoma. No infection. MDM MDM MDM Narrative Medical decision making narrative: Dog bite left forearm. Dog was acting normally. Cleaned wound. She be given aprescription of Augmentin not to start it unless it starts looking worse. I explained to her most likely will need antibiotic unless it starts looking infected. History & Record Review Discussion w/independent historian: Patient Discharge Plan Triage Chief Complaint: Bite ED Provider: Vignesh Rosa Dx/Rx/DC Orders Clinical Impression: Dog bite of left forearm Instructions: ED Dog Bite Prescriptions: No Action NK Primary Care Provider: Ethan Frey Referrals: Ethan Frey MD [Primary Care Provider] - As Needed Activity Restrictions/Additional Instructions: Clean this twice daily with soap and water or peroxide and water. Apply antibiotic ointment. Most likely this will prevent any infection. I will give you prescription for the antibiotic Augmentin 1 pill twice a day for5 days. I would not start this at this time. Dog bites usually do not get infected. Unless this gets a lot more swollen, red pus or streaks I would not start antibiotic if you see those and start antibiotic immediately. I would icethe arm and elevated to decrease pain and swelling. Motrin and Tylenol for pain. Follow-up with your doctor as needed. Disposition Disposition: Home, Self Care What to do if you have Problems For any increased pain, shortness of breath, bleeding, nausea or vomiting, chestpain, or any unexpected problems, contact your Primary Care Provider. Call [facility] ([phone]) or report to the closest Emergency Room. Call 911 if necessary. 12/17/23 1031 <Electronically signed by Vignesh Rosa MD> Cosigner Signature (if applicable): CC: Dr. Ethan Frey MD ~ Signed [facility] Work Phone: Evaluation + Plan note No data available for this section [facility] Evaluation noteNo assessment information available [facility] Work Phone: Evaluation note* Diagnosis Family history of breast cancer Family history of malignant neoplasm of breast [facility] Encounter for gynecological examination (general) (routine) without abnormal findings- Primary Screening for cervical cancer Screening for malignant neoplasm of the cervix Encounter for screening for human papillomavirus (HPV) Special screening examination for human papillomavirus (HPV) [facility] Diagnosis HPV (human papilloma virus) infection- Primary Human papillomavirus in conditions classified elsewhere and of unspecified site [facility] Diagnosis Missed menses- Primary Absence of menstruation [facility] Diagnosis Cervical high risk human papillomavirus (HPV) DNA test positive- Primary documented in this encounter [facility] note* Diagnosis Positive test (HCC)- Primary examination or test, positive result [facility]* Diagnosis 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 Discharge instructions Additional Instructions Clean this twice daily with soap and water or peroxide and water. Apply antibiotic ointment. Most likely this will prevent any infection. I will give you prescription for the antibiotic Augmentin 1 pill twice a day for 5 days. I would not start this at this time. Dog bites usually do not get infected. Unless this gets a lot more swollen, red pus or streaks I would not start antibiotic if you see those and start antibiotic immediately. I would ice the arm and elevated to decrease pain and swelling. Motrin and Tylenol for pain. Follow-up with your doctor as needed.[facility] Work Phone: Reason for referral (narrative)No reason for referral [facility] Work Phone: Summary Purpose Family History No Family History Records FoundNo Family History Records FoundThere may be information available, but it has not been provided by the sender.No Family History Records FoundNo Family History Records FoundNo Family History Records Found No data available for this section No Family History Records FoundNo Family History Records FoundNo Family History Records Found Advance Directives No Advanced Directives Records Found Advance Directive Response Recorded Date/ Time Advance Directives No October 27 9:13am Living Will No October 27, 2020 9:13am Power of Metal Fabricator Welder No October 27 9:13am Advance Directive Response Recorded Date/ Time Advance Directives No October 27 9:13am Living Will No December 17, 2023 10:15am Power of Metal Fabricator Welder No December 16 10:15am Advance Directive Response Recorded Date/ Time Advance Directives No October 27 9:13am Assessments There may be information available, but it has not been provided by the sender. Review of System There may be information available, but it has not been provided by the sender. Chief Complaint and Reason for Visit Chief Complaint L PATELLA FEMORAL MA LTRACKING. PT HAS RX EORDER Chief Complaint PAIN IN LEFT LOWER L EG Chief Complaint DOG BITE Chief Complaint Admit Date TUBAL REVERSAL, INFERTILITY February 01 7:46am Additional Source Comments INFORMATION SOURCE (unrecogn ized section and content) DATE CREATED AUTHOR 02/14/2018 [facility] DATE CREATED AUTHOR AUTHOR'S ORGANIZ ATION 02/14/2018 [facility] DATE CREATED AUTHOR AUTHOR'S ORGANIZ ATION 03/13/2018 [facility] DATE CREATED AUTHOR AUTHOR'S ORGANIZ ATION 05/19/2021 [facility] DATE CREATED AUTHOR AUTHOR'S ORGANIZ ATION 10/28/2022 [place] DATE CREATED AUTHOR AUTHOR'S ORGANIZ ATION 06/24/2023 [facility] DATE CREATED AUTHOR AUTHOR'S ORGANIZ ATION 03/03/2025 [facility] DATE CREATED AUTHOR AUTHOR'S ORGANIZ ATION 04/18/2025 [facility] Goals (unrecognized section and content) Goals may be documented in a n alternate sectionGoals may be documented in an alternate sectionGoals may be documented in an alternate sectionGoals may be documented in an alternate sectionGoals may be documented in an alternate sectionGoals may be documented in an alternate section No data available for this sectionGoals may be documented in an alternate sectionGoals may be documented in an alternate section Care Teams (unrecognized sec tion and content) Team Status: Active Member Role Status Dates CIERRA HENDERSON Family Provider Active Dr. Ethan Frey MD Primary Care Provider Active Team Status: Inactive Member Role Status Dates Dr. Ethan Frey MD Primary Care Provider Active MARBELLA Guadalupe Attending Provider Active Team Status: Active Member Role Status Dates Dr. Ethan Frey MD Primary Care Provider Active Dr. Tani Montalvo MD Attending Provider Active Team Status: Active Member Role Status Dates Dr. Ethan Frey MD Primary Care Provider Active Jaelyn Miller MD Attending Provider Active Team Status: Inactive Member Role Status Dates Dr. Ethan Frey MD Primary Care Provider Active Jaelyn Miller MD Attending Provider, Referring Provide r Active Team Status: Active Member Role Status Dates Dr. Ethan Frey MD Primary Care Provider Active Dr. Tani Montalvo MD Attending Provider Active Jaelyn Miller MD Referring Provider Active Team Status: Inactive Member Role Status Dates Dr. Ethan Frey MD Primary Care Provider Active Jaelyn Miller MD Attending Provider Active Concrete Spreader Relationship Specialty Start Date End Date Ethan Frey MD [address] [place] [address] PCP - General Family Medicine 05/27/23 Merle Ortiz MD [facility] [place] [address] Family Medicine 02/10/23 Asad Landis CGC [facility] [place] [address] Genetic Counselor Genetics 05/27/23 Team Status: Inactive Member Role Status Dates Dr. Ethan Frey MD Primary Care Provider Active Dr. Vignesh Rosa MD Emergency Provider Active Concrete Spreader Relationship Specialty Start Date End Date Jaelyn Miller MD [address] [place] [address] PCP - General Internal Medicine 06/19/24 Concrete Spreader Relationship Specialty Start Date End Date Jaelyn Miller MD [address] [place] [address] PCP - General Internal Medicine 06/19/24 Concrete Spreader Relationship Specialty Start Date End Date Jaelyn Miller MD [address] [place] [address] PCP - General Internal Medicine 06/19/24 Concrete Spreader Relationship Specialty Start Date End Date Jaelyn Miller MD [address] [facility] [address] [place], [place] [id number] PCP - General Internal Medicine 06/19/24 Concrete Spreader Relationship Specialty Start Date End Date Jaelyn Miller MD [address] [facility] [address] [place], [place] [id number] PCP - General Internal Medicine 06/19/24 Concrete Spreader Relationship Specialty Start Date End Date Jaelyn Miller MD [address] [facility] [address] [place], [place] [id number] PCP - General Internal Medicine 06/19/24 Concrete Spreader Relationship Specialty Start Date End Date Jaelyn Miller MD [address] [facility] [address] [place] [address] PCP - General Internal Medicine 06/19/24 Team Status: Active Member Role Status Dates Jaelyn Miller MD Primary Care Provider Active Team Status: Inactive Member Role Status Dates Jaelyn Miller MD Primary Care Provider Active St art: February 01, 2025 End: February 01, 2025 Dr. Marzena Barros MD Attending Provider Ac tive Start: February 01, 2025 End: February 01, 2025 Dr. Marzena Barros MD Referring Provider Ac tive Start: February 01, 2025 End: February 01, 2025 Concrete Spreader Relationship Specialty Start Date End Date Jaelyn Miller MD [address] [facility] [address] [place], [place] [id number] PCP - General Internal Medicine 06/19/24 Concrete Spreader Relationship Specialty Start Date End Date Jaelyn Miller MD [address] [facility] [address] [place], [place] [id number] PCP - General Internal Medicine 06/19/24 Concrete Spreader Relationship Specialty Start Date End Date Jaelyn Miller MD [address] [place] [address] PCP - General Internal Medicine 06/19/24 Reason for Visit (unrecogniz ed section and content) Specialty Diagnoses / Procedures Referred By Contac t Referred To Contact Lab Diagnoses Family history of breast cancer Procedures Genetic Sendout: Common Hereditary Cancers [place] [address] Referral ID Status Reason Start Date Expiration Date V isits Requested Visits Authorized [id number] Open Specialty Services Required 05/27/2023 05/26/2024 1 1 Reason Comments Well Woman Reason Onset Date Comments Results 10/30/2024 Abnormal Pap 10/30/2024 Reason Comments Results Reason Comments Colposcopy Specialty Diagnoses / Procedures Referred By Contjerel t Referred To Contact [facility] Diagnoses HPV (human papilloma virus) infection Procedures COLPOSCOPY COLPOSCOPY CERVIX BX CERVIX & ENDOCRV JOSEGE Sherly Bynum APRN.HOME MISSION WORKER [address] [place] [address] Phone: tel: fax: [facility] [address] [place] [address] Referral ID Status Reason Start Date Expiration Date V isits Requested Visits Authorized [id number] Closed Auto-Generate d Referral 10/30/2024 10/30/2025 1 1 Reason Onset Date Comments Results 11/12/2024 Reason Onset Date Comments Results 11/13/2024 Source Comments (unrecognize d section and content) In the event this informatio n is protected by the Federal Confidentiality of Alcohol and Drug Abuse Patient Records regulations: The Federal rules restrict any use of the information to criminally investigate or prosecute any alcohol or drug abuse patient.[facility] System[facility] the event this information is protected by the Federal Confidentiality of Alcohol and Drug Abuse Patient Records regulations: The Federal rules restrict any use of the information to criminally investigate or prosecute any alcohol or drug abuse patient.[facility] SystemIn the event this information is protected by the Federal Confidentiality of Alcohol and Drug Abuse Patient Records regulations: The Federal rules restrict any use of the information to criminally investigate or prosecute any alcohol or drug abuse patient.[facility] SystemIn the event this information is protected by the Federal Confidentiality of Alcohol and Drug Abuse Patient Records regulations: The Federal rules restrict any use of the information to criminally investigate or prosecute any alcohol or drug abuse patient.[facility] SystemIn the event this information is protected by the Federal Confidentiality of Alcohol and Drug Abuse Patient Records regulations: The Federal rules restrict any use of the information to criminally investigate or prosecute any alcohol or drug abuse patient.[facility] SystemIn the event this information is protected by the Federal Confidentiality of Alcohol and Drug Abuse Patient Records regulations: The Federal rules restrict any use of the information to criminally investigate or prosecute any alcohol or drug abuse patient.[facility] SystemIn the event this information is protected by the Federal Confidentiality of Alcohol and Drug Abuse Patient Records regulations: The Federal rules restrict any use of the information to criminally investigate or prosecute any alcohol or drug abuse patient.[facility] SystemIn the event this information is protected by the Federal Confidentiality of Alcohol and Drug Abuse Patient Records regulations: The Federal rules restrict any use of the information to criminally investigate or prosecute any alcohol or drug abuse patient.[facility] SystemIn the event this information is protected by the Federal Confidentiality of Alcohol and Drug Abuse Patient Records regulations: The Federal rules restrict any use of the information to criminally investigate or prosecute any alcohol or drug abuse patient.[facility] SystemIn the event this information is protected by the Federal Confidentiality of Alcohol and Drug Abuse Patient Records regulations: The Federal rules restrict any use of the information to criminally investigate or prosecute any alcohol or drug abuse patient.[facility] SystemIn the event this information is protected by the Federal Confidentiality of Alcohol and Drug Abuse Patient Records regulations: The Federal rules restrict any use of the information to criminally investigate or prosecute any alcohol or drug abuse patient.[facility] SystemIn the event this information is protected by the Federal Confidentiality of Alcohol and Drug Abuse Patient Records regulations: The Federal rules restrict any use of the information to criminally investigate or prosecute any alcohol or drug abuse patient.[facility] FOR RECORDS PERTAINING TO PATIENTS WHO ARE OR HAVE BEEN ENROLLED IN A CHEMICAL DEPENDENCY/SUBSTANCEABUSE PROGRAM, SOME INFORMATION MAY BE OMITTED. This clinical summary was aggregated from multiple sources. Caution should be exercised in using it in the provision of clinical care. This summary normalizes information from multiple sources, and as a consequence, information in this document may materially change the coding, format and clinical context of patient data. In addition, data may be omitted in some cases. CLINICAL DECISIONS SHOULD BE BASED ON THE PRIMARY CLINICAL RECORDS. [facility]. provides no warranty or guarantee of the accuracy or completeness of information in this document.
== END 2025-05-03 21:59 | disposition home or self-care (01) ==
LOC: ED 21:57
PROVIDERS: Emergency Provider Emergency Medicine; PCP Family Medicine; Visit Provider Emergency Medicine
DX: S06.0X0A Concussion without loss of consciousness, initial encounter (principal); S00.03XA Contusion of scalp, initial encounter; W22.09XA Striking against other stationary object, initial encounter
CPT/HCPCS: 99282